=== PATIENT | female | born 1950 | race Hispanic/Latino ===

== ENCOUNTER 2019-03-01 09:59 | Emergency (ER) | payer OTHER ==
[2019-03-01] MEDS ORDERED: ONDANSETRON 4 MG/2 ML VIAL ONE (10:44)
[2019-03-01 10:59] LABS: Absolute Lymphocytes (CBC) 1.6 K/uL (0.7-4.9); Basophils % 2.1 % (0-1.3); Hematocrit 35.9 % (36.0-45.0); Lymphocytes % 22.4 % (15.3-44.8); MPV 8.5 fL (7.6-11.3)
[2019-03-01 11:10] LABS: Bilirubin Total 0.5 mg/dL (0.2-1.0); Protein, Total 7.2 g/dL (6.4-8.2)
[2019-03-01] MEDS ORDERED: NA CHLORIDE 0.9% 500 ML ONE (11:38)
--- NOTE | 2019-03-01 11:40 | RAD REPORT ---
EXAM DESCRIPTION: Charanjit Cordova (2 Views)03/01/2019 11:07 am CLINICAL HISTORY: Cough COMPARISON: 2014 FINDINGS: The lungs appear clear of acute infiltrate. The heart is normal size IMPRESSION: No acute abnormalities displayed
[2019-03-01 12:04] LABS: Urine Blood NEGATIVE (NEG); Urine Glucose NEGATIVE (NEG); Urine Protein NEGATIVE (NEG); Urine Specific Gravity 1.005 (1.005-1.030); Urine pH 5.5 (5.0-7.0)
--- NOTE | 2019-03-01 12:27 | EDPHYS ---
Physician Documentation [facility] Name: Liberty Bah Age: 68 yrs Sex: Female : 1950 Arrival Date: 03/01/2019 Time: 10:02 Bed 8 Private MD: ED Physician Jermaine Charles HPI: 03/01 10:30 This 68 yrs old Female presents to ER via Ambulatory with complaints of Flu jmm Symptoms. 10:30 The patient or guardian reports cough. Onset: The symptoms/episode began/occurred jmm gradually, 3 day(s) ago. Modifying factors: The symptoms are alleviated by nothing. the symptoms are aggravated by nothing. Associated signs and symptoms: Pertinent positives: diarrhea, nausea, rhinorrhea. This is a 68 year old female with a history of DM, NH, HTN that presents to the ED with complaints of congestion, cough, sinus pressure, diarrhea, beginning 3 days ago. Denies abdominal pain or sore throat. . Historical: - Allergies: 10:24 PENICILLINS; iw - Home Meds: 10:24 Lyrica Oral [Active]; Plavix 75 mg Oral tab 1 tab once daily [Active]; Metformin Oral iw [Active]; Lisinopril Oral [Active]; - PMHx: 10:24 Diabetes - NIDDM; Myocardial infarction; Hypertension; iw - PSHx: 10:24 Heart stents; Appendectomy; iw - Immunization history:: Adult Immunizations up to date. - Social history:: Smoking status: Patient uses tobacco products, denies chronic smoking, but will smoke occasionally. - Ebola Screening: : Patient negative for fever greater than or equal to 101.5 degrees Fahrenheit, and additional compatible Ebola Virus Disease symptoms Patient denies exposure to infectious person Patient denies travel to an Ebola-affected area in the 21 days before illness onset No symptoms or risks identified at this time. ROS: 10:30 Constitutional: Positive for body aches. jmm 10:30 Respiratory: Positive for cough. 10:30 Abdomen/GI: Positive for nausea. 10:30 All other systems are negative. Exam: 10:30 Constitutional: This is a well developed, well nourished patient who is awake, alert, jmm and in no acute distress. Head/Face: atraumatic. Eyes: EOMI, no conjunctival erythema appreciated ENT: Moist Mucus Membranes Neck: Trachea midline, Supple Chest/axilla: Normal chest wall appearance and motion. 10:30 Back: Normal ROM Skin: General appearance color normal MS/ Extremity: Moves all extremities, no obvious deformities appreciated, no edema noted to the lower extremities Neuro: Awake and alert, normal gait Psych: Behavior is normal, Mood is normal, Patient is cooperative and pleasant 10:30 Cardiovascular: Rate: normal, Rhythm: regular. 10:30 Respiratory: the patient does not display signs of respiratory distress, Respirations: normal, Breath sounds: are clear throughout. 10:30 Abdomen/GI: Inspection: abdomen appears normal, Bowel sounds: normal, Palpation: abdomen is soft and non-tender, in all quadrants. Vital Signs: 10:28 BP 122 / 74; Pulse 87; Resp 16; Temp 97.6(O); Pulse Ox 100% on R/A; Weight 53.52 kg; iw Height 5 ft. 1 in. (154.94 cm); 11:50 BP 124 / 72; Pulse 80; Resp 17; Pulse Ox 99% on R/A; sg 13:00 BP 124 / 70; Pulse 82; Resp 16; Temp 97.6; Pulse Ox 100% on R/A; sg 10:28 Body Mass Index 22.30 (53.52 kg, 154.94 cm) iw MDM: 10:20 Patient medically screened. [facility] 12:24 Data reviewed: vital signs, nurses notes. Counseling: I had a detailed discussion with alfredo the patient and/or guardian regarding: the historical points, exam findings, and any diagnostic results supporting the discharge/admit diagnosis, lab results, radiology results, the need for outpatient follow up, to return to the emergency department if symptoms worsen or persist or if there are any questions or concerns that arise at home. ED course: Patient is alert and non toxic in appearance in the ED. Patient shows no signs of resp distress. Tolerates PO. Labs unremarkable. Patient requested medication for anxiety/rest. Will prescribe low dose hydroxyzine. UA shows signs of possible UTI. Will treat with 3 day course. Patient given strict return precautions. Patient understood and agrees with the plan of care. . 03/01 10:30 Order name: Flu; Complete Time: 11:15 [facility] 03/01 10:30 Order name: Strep; Complete Time: 11:15 [facility] 03/01 10:30 Order name: CBC with Diff; Complete Time: 11:07 [facility] 03/01 10:30 Order name: CMP; Complete Time: 11:15 [facility] 03/01 11:15 Order name: Throat Culture [facility] 03/01 11:16 Order name: Urine Dipstick--Ancillary (enter results); Complete Time: 12:15 eb 03/01 10:30 Order name: Saline Lock; Complete Time: 10:50 [facility] 03/01 10:30 Order name: Chest Pa And Lat (2 Views) XRAY; Complete Time: 11:43 [facility] 03/01 10:30 Order name: Urine Dipstick-Ancillary (obtain specimen); Complete Time: 11:27 [facility] Administered Medications: 10:40 Drug: Zofran 4 mg Route: IVP; Site: right forearm; sg 11:00 Follow up: Response: No adverse reaction; Nausea unchanged sg 11:42 Drug: NS 0.9% 500 ml Route: IV; Rate: bolus; Site: right forearm; sg Disposition: 03/02 07:16 Co-signature as Attending Physician, Jermaine Charles MD I agree with the assessment and kdr plan of care. Disposition: 03/01/19 12:26 Discharged to Home. Impression: Acute upper respiratory infection, unspecified, Urinary tract infection, site not specified. - Condition is Stable. - Discharge Instructions: Upper Respiratory Infection, Adult, Urinary Tract Infection, Adult. - Prescriptions for Hydroxyzine HCl 25 mg Oral Tablet - take 1 tablet by ORAL route every 6 hours As needed; 12 tablet. Bactrim DS 800- 160 mg Oral Tablet - take 1 tablet by ORAL route every 12 hours for 3 days; 6 tablet. Zofran ODT 4 mg Oral tablet,disintegrating - place 1 tablet by TRANSLINGUAL route every 4-6 hours; 20 tablet. - Medication Reconciliation Form, Thank You Letter, Antibiotic Education, Prescription Opioid Use form. - Follow up: Private Physician; When: 2 - 3 days; Reason: Recheck today's complaints, Continuance of care, Re-evaluation by your physician. Signatures: Dispatcher [employer] EDMS Cristo Severino RN RN sg Rittger, Kevin, MD MD kdr Mickail, Joel, PA PA [facility] Floresita Sanchez RN RN Vianney Brown RN RN Corrections: (The following items were deleted from the chart) 03/01 13:25 12:26 03/01/2019 12:26 Discharged to Home. Impression: Acute upper respiratory hb infection, unspecified; Urinary tract infection, site not specified. Condition is Stable. Forms are Medication Reconciliation Form, Thank You Letter, Antibiotic Education, Prescription Opioid Use. Follow up: Private Physician; When: 2 - 3 days; Reason: Recheck today's complaints, Continuance of care, Re-evaluation by your physician. alfredo
--- NOTE | 2019-03-01 12:27 | ER ---
Nurse's Notes [facility] Name: Liberty Bah Age: 68 yrs Sex: Female : 1950 Arrival Date: 03/01/2019 Time: 10:02 Bed 8 Private MD: Diagnosis: Acute upper respiratory infection, unspecified;Urinary tract infection, site not specified Presentation: 03/01 10:22 Presenting complaint: Patient states: nausea, diarrhea X3-4 days, feels cold, no fever, iw also feels fatigued and has sinus pain. Transition of care: patient was not received from another setting of care. Onset of symptoms was February 26, 2019. Risk Assessment: Do you want to hurt yourself or someone else? Patient reports no desire to harm self or others. Initial Sepsis Screen: Does the patient meet any 2 criteria? No. Patient's initial sepsis screen is negative. Does the patient have a suspected source of infection? No. Patient's initial sepsis screen is negative. Care prior to arrival: None. 10:22 Method Of Arrival: Ambulatory iw 10:22 Acuity: BARBRA 3 iw Historical: - Allergies: 10:24 PENICILLINS; iw - Home Meds: 10:24 Lyrica Oral [Active]; Plavix 75 mg Oral tab 1 tab once daily [Active]; Metformin Oral iw [Active]; Lisinopril Oral [Active]; - PMHx: 10:24 Diabetes - NIDDM; Myocardial infarction; Hypertension; iw - PSHx: 10:24 Heart stents; Appendectomy; iw - Immunization history:: Adult Immunizations up to date. - Social history:: Smoking status: Patient uses tobacco products, denies chronic smoking, but will smoke occasionally. - Ebola Screening: : Patient negative for fever greater than or equal to 101.5 degrees Fahrenheit, and additional compatible Ebola Virus Disease symptoms Patient denies exposure to infectious person Patient denies travel to an Ebola-affected area in the 21 days before illness onset No symptoms or risks identified at this time. Screenin:33 Abuse screen: Denies threats or abuse. Denies injuries from another. Nutritional hb screening: No deficits noted. Tuberculosis screening: No symptoms or risk factors identified. Fall Risk None identified. Assessment: 10:30 General: Appears in no apparent distress. Behavior is calm, cooperative. Pain: Pain hb currently is 2 out of 10 on a pain scale. Neuro: Level of Consciousness is awake, alert, obeys commands, Oriented to person, place, time, situation. Cardiovascular: Capillary refill < 3 seconds Patient's skin is warm and dry. Respiratory: Airway is patent Respiratory effort is even, unlabored, Respiratory pattern is regular, symmetrical, Breath sounds are clear bilaterally. GI: No signs and/or symptoms were reported involving the gastrointestinal system. : No signs and/or symptoms were reported regarding the genitourinary system. EENT: No signs and/or symptoms were reported regarding the EENT system. Derm: Skin is pink, warm \T\ dry. Musculoskeletal: Reports body aches. 10:32 GI: Reports diarrhea, nausea, Shravan SALCEDO notified, orders received for Zofran, pt sg medicated see EMAR. Vital Signs: 10:28 BP 122 / 74; Pulse 87; Resp 16; Temp 97.6(O); Pulse Ox 100% on R/A; Weight 53.52 kg; iw Height 5 ft. 1 in. (154.94 cm); 11:50 BP 124 / 72; Pulse 80; Resp 17; Pulse Ox 99% on R/A; sg 13:00 BP 124 / 70; Pulse 82; Resp 16; Temp 97.6; Pulse Ox 100% on R/A; sg 10:28 Body Mass Index 22.30 (53.52 kg, 154.94 cm) iw ED Course: 10:02 Patient arrived in ED. mr 10:14 Shravan Felton PA is PHCP. jmm 10:14 Jermaine Charles MD is Attending Physician. jmm 10:18 Cristo Severino, JASEN is Primary Nurse. sg 10:23 Triage completed. iw 10:30 Patient has correct armband on for positive identification. Placed in gown. Bed in low hb position. Call light in reach. Side rails up X 1. 10:30 Initial lab(s) drawn, by me, sent to lab. Flu and/or RSV swab sent to lab. Strep swab sg sent to lab. Inserted saline lock: 22 gauge in right forearm, using aseptic technique. Blood collected. 10:33 Arm band placed on. hb 11:08 Chest Pa And Lat (2 Views) XRAY In Process Unspecified. EDMS 13:25 No provider procedures requiring assistance completed. IV discontinued, intact, hb bleeding controlled, No redness/swelling at site. Pressure dressing applied. Administered Medications: 10:40 Drug: Zofran 4 mg Route: IVP; Site: right forearm; sg 11:00 Follow up: Response: No adverse reaction; Nausea unchanged sg 11:42 Drug: NS 0.9% 500 ml Route: IV; Rate: bolus; Site: right forearm; sg Outcome: 12:26 Discharge ordered by . alfredo 13:22 Discharged to home ambulatory, with family. hb 13:22 Condition: stable 13:22 Discharge instructions given to patient, family, Instructed on discharge instructions, follow up and referral plans. medication usage, Demonstrated understanding of instructions, follow-up care, medications, Prescriptions given X 3. 13:25 Patient left the ED. hb Signatures: Dispatcher [employer] EDMS Cristo Severino, RN RN Shravan Echols PA PA jmm Rivera, Mary mr Williams, Irene, RN RN iw Baxter, Heather, RN RN hb
[2019-03-01 13:49] VITALS: BP 122/74; TEMP 97.6; O2SAT 100
== END 2019-03-01 13:25 | disposition home or self-care (01) ==
LOC: ER 09:59
DX: J06.9 Acute upper respiratory infection, unspecified (principal); N39.0 Urinary tract infection, site not specified; Z88.0 Allergy status to penicillin; E11.9 Type 2 diabetes mellitus without complications; I25.2 Old myocardial infarction; I10 Essential (primary) hypertension; Z72.0 Tobacco use
CPT/HCPCS: 87070; 85025; 36415; 87081; 81003; 80053; 87804 ×2; 71046; 96374; 99284; J7040; J2405

== ENCOUNTER → 2023-04-03 | Emergency (ER) | payer OTHER ==
[~2023-04-03] MED LIST: HYDROCODONE/APAP 5/325 MG TAB ONE
--- OUTSIDE RECORDS SUMMARY | 2023-04-03 10:44 | XMS REPORT | Continuity of Care Document ---
Author Name Unknown Address [address] [facility] [address] [place] [address] [facility] thconnect Address [address] [facility] 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 Name Role Phone Kitty Taylor Primary Care Physician ADONIS MATHIS Attending Clinician Unavailable [email or web address] Attending Clinician Analisa Wolff MA Attending Clinician Unavailab matt [email or web address] Admitting Clinician Kenji aggarwal Payers Payer Name Policy Type Policy Number Effective Date Expirati on Date Source [facility] [employer]LLMED [id number] 2021 00:00:00 [facility] MEDICARE ADVANTAGE [id number] 2020 00:00:00 Problems Condition Name Condition Details Condition Category Status Onset Date Resolution Date Last Treatment Date Treating Clinician Comments Source Closed Colles' fracture of right radius with routine healing Closed Colles' fracture of right radius with routine healing Disease Active 2020-03 00:00: 00 [facility] Right wrist pain Right wrist pain Disease Active 2020-03 00:00: 00 [facility] Closed displaced intertroch anteric fracture of right femur with routine healing Closed displaced intertroch anteric fracture of right femur with routine healing Disease Active 2020-03 00:00: 00 [facility] Allergies, Adverse Reactions, Alerts Allergy Name Allergy Type Status Severity Reaction(s) Onset Date Inactive Date Treating Clinician Comments Source Penicill ins Allergy to substanc e Active Rash 09-25 00:00: 00 [facility] Social History Social Habit Start Date Stop Date Quantity Comments Source History of tobacco use 1979-04-04 00:00:00 Cigarette Smoker [facility] Exposure to SARS-CoV-2 (event) Not sure [facility] Tobacco use and exposure 2021-04-08 00:00:00 2021-04-08 00:00:00 User of smokeless tobacco [facility] Alcohol intake 2021-04-08 00:00:00 2021-04-08 00:00:00 0 /d [facility] Cigarettes smoked current (pack per day) - Reported 2021-04-08 00:00:00 2021-04-08 00:00:00 [facility] Cigarette pack-years 2021-04-08 00:00:00 2021-04-08 00:00:00 [facility] Sex Assigned At 1950 00:00:00 1950 00:00:00 [facility] Smoking Status Start Date Stop Date Source Tobacco smoking consumption unknown [facility] Smokes tobacco daily 2021-04-08 00:00:00 [facility] Never smoked tobacco [facility] Medications Ordered Medication Name Filled Medication Name Start Date Stop Date Current Medication? Ordering Clinician Indication Dosage Frequency Signature (SIG) Comments Components Source naloxone (Narcan) 2 MG/2ML injection 2020-03 00:00: 00 03-10 05:59 :00 No [id number] .4mg Administer 0.4 mL (0.4 mg total) into affected nostril(s) if needed for opioid reversal. May repeat every 2-3 minutes as needed until medical assistance available. [facility] naloxone (Narcan) 2 MG/2ML injection 2020-03 00:00: 00 03-10 05:59 :00 No [id number] .4mg Administer 0.4 mL (0.4 mg total) into affected nostril(s) if needed for opioid reversal. May repeat every 2-3 minutes as needed until medical assistance available. [facility] HYDROcodone -acetaminop hen ([place]) 10-325 MG tablet 2020-03 00:00: 00 05-09 05:59 :00 No [id number] 1{tbl} Take 1 tablet by mouth every 4 (four) hours if needed for severe pain (Pain). [facility] HYDROcodone -acetaminop hen ([place]) 10-325 MG tablet 2021-1 2-15 00:00: 00 05-09 05:59 :00 No [id number] 1{tbl} Take 1 tablet by mouth every 4 (four) hours if needed for severe pain (Pain). [facility] HYDROcodone -acetaminop hen ([place]) 10-325 MG tablet 2020-03 00:00: 00 04-23 05:59 :00 No [id number] 1{tbl} Take 1 tablet by mouth every 4 (four) hours if needed for severe pain (Pain). [facility] HYDROcodone -acetaminop hen ([place]) 10-325 MG tablet 2020-03 00:00: 00 04-23 05:59 :00 No [id number] 1{tbl} Take 1 tablet by mouth every 4 (four) hours if needed for severe pain (Pain). [facility] HYDROcodone -acetaminop hen ([place]) 10-325 MG tablet 2020-03 00:00: 00 04-10 05:59 :00 No [id number] 1{tbl} Take 1 tablet by mouth every 4 (four) hours if needed for severe pain (Pain). [facility] HYDROcodone -acetaminop hen ([place]) 10-325 MG tablet 2020-03 00:00: 00 03-08 00:00 :00 No [id number] 1{tbl} Take 1 tablet by mouth every 4 (four) hours if needed for severe pain (Pain). [facility] HYDROcodone -acetaminop hen ([place]) 10-325 MG tablet 2020-03 00:00: 00 03-30 05:59 :00 No [id number] 1{tbl} Take 1 tablet by mouth every 4 (four) hours if needed for severe pain (Pain). [facility] HYDROcodone -acetaminop hen ([place]) 10-325 MG tablet 2020-03 00:00: 00 03-30 05:59 :00 No [id number] 1{tbl} Take 1 tablet by mouth every 4 (four) hours if needed for severe pain (Pain). [facility] HYDROcodone -acetaminop hen ([place]) 10-325 MG tablet 2020-03 00:00: 00 02-07 00:00 :00 No [id number] 1{tbl} Take 1 tablet by mouth every 4 (four) hours if needed for severe pain (Pain). [facility] HYDROcodone -acetaminop hen ([place]) 10-325 MG tablet 2020-03 00:00: 00 03-22 05:59 :00 No [id number] 1{tbl} Take 1 tablet by mouth every 4 (four) hours if needed for severe pain (Pain). [facility] HYDROcodone -acetaminop hen ([place]) 10-325 MG tablet 2020-03 00:00: 00 01-28 00:00 :00 No [id number] 1{tbl} Take 1 tablet by mouth every 4 (four) hours if needed for severe pain (Pain). [facility] No known medications 2020-03 11:24: 46 No No known medication s [facility] No known medications 2020-03 11:24: 46 No No known medication s [facility] pantoprazol e (ProtoNix) 40 MG EC tablet 2020-03 11:03: 30 Yes pantoprazo le 40 mg tablet,del ayed release [facility] pantoprazol e (ProtoNix) 40 MG EC tablet 2020-03 11:03: 30 Yes pantoprazo le 40 mg tablet,del ayed release [facility] pantoprazol e (ProtoNix) 40 MG EC tablet 2020-03 11:03: 30 Yes pantoprazo le 40 mg tablet,del ayed release [facility] pantoprazol e (ProtoNix) 40 MG EC tablet 2020-03 11:03: 30 Yes pantoprazo le 40 mg tablet,del ayed release [facility] pantoprazol e (ProtoNix) 40 MG EC tablet 2020-03 11:03: 30 Yes pantoprazo le 40 mg tablet,del ayed release [facility] pantoprazol e (ProtoNix) 40 MG EC tablet 2020-03 11:03: 30 Yes pantoprazo le 40 mg tablet,del ayed release [facility] pantoprazol e (ProtoNix) 40 MG EC tablet 2020-03 11:03: 30 Yes pantoprazo le 40 mg tablet,del ayed release [facility] pantoprazol e (ProtoNix) 40 MG EC tablet 2020-03 0 11:03: 30 Yes pantoprazo le 40 mg tablet,del ayed release [facility] pantoprazol e (ProtoNix) 40 MG EC tablet 2020-03 0 11:03: 30 Yes pantoprazo le 40 mg tablet,del ayed release [facility] pantoprazol e (ProtoNix) 40 MG EC tablet 2020-03 0 11:03: 30 Yes pantoprazo le 40 mg tablet,del ayed release [facility] pantoprazol e (ProtoNix) 40 MG EC tablet 2020-03 11:03: 30 Yes pantoprazo le 40 mg tablet,del ayed release [facility] fenofibrate micronized (Lofibra) 134 MG capsule 2020-03 11:03: 29 Yes fenofibrat e micronized 134 mg capsule [facility] lisinopril 20 MG tablet 2020-03 0 11:03: 29 Yes lisinopril 20 mg tablet TAKE 1 TABLET BY MOUTH EVERY DAY [facility] metFORMIN (Glucophage ) 500 MG tablet 2020-03 11:03: 29 Yes metformin 500 mg tablet [facility] fenofibrate micronized (Lofibra) 134 MG capsule 2020-03 11:03: 29 Yes fenofibrat e micronized 134 mg capsule [facility] lisinopril 20 MG tablet 2020-03 11:03: 29 Yes lisinopril 20 mg tablet TAKE 1 TABLET BY MOUTH EVERY DAY [facility] metFORMIN (Glucophage ) 500 MG tablet 2020-03 11:03: 29 Yes metformin 500 mg tablet [facility] fenofibrate micronized (Lofibra) 134 MG capsule 2020-03 11:03: 29 Yes fenofibrat e micronized 134 mg capsule [facility] lisinopril 20 MG tablet 2020-03 11:03: 29 Yes lisinopril 20 mg tablet TAKE 1 TABLET BY MOUTH EVERY DAY [facility] metFORMIN (Glucophage ) 500 MG tablet 2020-03 0 11:03: 29 Yes metformin 500 mg tablet [facility] fenofibrate micronized (Lofibra) 134 MG capsule 2020-03 11:03: 29 Yes fenofibrat e micronized 134 mg capsule [facility] lisinopril 20 MG tablet 2020-03 0 11:03: 29 Yes lisinopril 20 mg tablet TAKE 1 TABLET BY MOUTH EVERY DAY [facility] metFORMIN (Glucophage ) 500 MG tablet 2020-03 0 11:03: 29 Yes metformin 500 mg tablet [facility] fenofibrate micronized (Lofibra) 134 MG capsule 2020-03 0 11:03: 29 Yes fenofibrat e micronized 134 mg capsule [facility] lisinopril 20 MG tablet 2020-03 0 11:03: 29 Yes lisinopril 20 mg tablet TAKE 1 TABLET BY MOUTH EVERY DAY [facility] metFORMIN (Glucophage ) 500 MG tablet 2020-03 0 11:03: 29 Yes metformin 500 mg tablet [facility] fenofibrate micronized (Lofibra) 134 MG capsule 2020-03 0 11:03: 29 Yes fenofibrat e micronized 134 mg capsule [facility] lisinopril 20 MG tablet 2020-03 0 11:03: 29 Yes lisinopril 20 mg tablet TAKE 1 TABLET BY MOUTH EVERY DAY [facility] metFORMIN (Glucophage ) 500 MG tablet 2020-03 0 11:03: 29 Yes metformin 500 mg tablet [facility] fenofibrate micronized (Lofibra) 134 MG capsule 2020-03 0 11:03: 29 Yes fenofibrat e micronized 134 mg capsule [facility] lisinopril 20 MG tablet 2020-03 0 11:03: 29 Yes lisinopril 20 mg tablet TAKE 1 TABLET BY MOUTH EVERY DAY [facility] metFORMIN (Glucophage ) 500 MG tablet 2020-03 0 11:03: 29 Yes metformin 500 mg tablet [facility] fenofibrate micronized (Lofibra) 134 MG capsule 2020-03 0 11:03: 29 Yes fenofibrat e micronized 134 mg capsule [facility] lisinopril 20 MG tablet 2020-03 0 11:03: 29 Yes lisinopril 20 mg tablet TAKE 1 TABLET BY MOUTH EVERY DAY [facility] metFORMIN (Glucophage ) 500 MG tablet 2020-03 0 11:03: 29 Yes metformin 500 mg tablet [facility] fenofibrate micronized (Lofibra) 134 MG capsule 2020-03 0 11:03: 29 Yes fenofibrat e micronized 134 mg capsule [facility] lisinopril 20 MG tablet 2020-03 11:03: 29 Yes lisinopril 20 mg tablet TAKE 1 TABLET BY MOUTH EVERY DAY [facility] metFORMIN (Glucophage ) 500 MG tablet 2020-03 0 11:03: 29 Yes metformin 500 mg tablet [facility] fenofibrate micronized (Lofibra) 134 MG capsule 2020-03 11:03: 29 Yes fenofibrat e micronized 134 mg capsule [facility] lisinopril 20 MG tablet 2020-03 11:03: 29 Yes lisinopril 20 mg tablet TAKE 1 TABLET BY MOUTH EVERY DAY [facility] metFORMIN (Glucophage ) 500 MG tablet 2020-03 11:03: 29 Yes metformin 500 mg tablet [facility] fenofibrate micronized (Lofibra) 134 MG capsule 2020-03 11:03: 29 Yes fenofibrat e micronized 134 mg capsule [facility] lisinopril 20 MG tablet 2020-03 11:03: 29 Yes lisinopril 20 mg tablet TAKE 1 TABLET BY MOUTH EVERY DAY [facility] metFORMIN (Glucophage ) 500 MG tablet 2020-03 11:03: 29 Yes metformin 500 mg tablet [facility] atorvastati n (Lipitor) 20 MG tablet 2020-03 11:03: 28 Yes atorvastat in 20 mg tablet [facility] calcium carbonate (Os-Kosta) 1250 (500 Ca) MG tablet 2020-03 11:03: 28 Yes calcium carbonate 500 mg calcium (1,250 mg) tablet TAKE 1 TABLET BY MOUTH TWICE A DAY FOR 21 DAYS [facility] clopidogrel (Plavix) 75 MG tablet 2020-03 11:03: 28 Yes clopidogre l 75 mg tablet [facility] atorvastati n (Lipitor) 20 MG tablet 2020-03 11:03: 28 Yes atorvastat in 20 mg tablet [facility] calcium carbonate (Os-Kosta) 1250 (500 Ca) MG tablet 2020-03 11:03: 28 Yes calcium carbonate 500 mg calcium (1,250 mg) tablet TAKE 1 TABLET BY MOUTH TWICE A DAY FOR 21 DAYS [facility] clopidogrel (Plavix) 75 MG tablet 2020-03 11:03: 28 Yes clopidogre l 75 mg tablet [facility] atorvastati n (Lipitor) 20 MG tablet 2020-03 11:03: 28 Yes atorvastat in 20 mg tablet [facility] calcium carbonate (Os-Kosta) 1250 (500 Ca) MG tablet 2020-03 11:03: 28 Yes calcium carbonate 500 mg calcium (1,250 mg) tablet TAKE 1 TABLET BY MOUTH TWICE A DAY FOR 21 DAYS [facility] clopidogrel (Plavix) 75 MG tablet 2020-03 11:03: 28 Yes clopidogre l 75 mg tablet [facility] atorvastati n (Lipitor) 20 MG tablet 2020-03 11:03: 28 Yes atorvastat in 20 mg tablet [facility] calcium carbonate (Os-Kosta) 1250 (500 Ca) MG tablet 2020-03 11:03: 28 Yes calcium carbonate 500 mg calcium (1,250 mg) tablet TAKE 1 TABLET BY MOUTH TWICE A DAY FOR 21 DAYS [facility] clopidogrel (Plavix) 75 MG tablet 2020-03 11:03: 28 Yes clopidogre l 75 mg tablet [facility] atorvastati n (Lipitor) 20 MG tablet 2020-03 11:03: 28 Yes atorvastat in 20 mg tablet [facility] calcium carbonate (Os-Kosta) 1250 (500 Ca) MG tablet 2020-03 11:03: 28 Yes calcium carbonate 500 mg calcium (1,250 mg) tablet TAKE 1 TABLET BY MOUTH TWICE A DAY FOR 21 DAYS [facility] clopidogrel (Plavix) 75 MG tablet 2020-03 11:03: 28 Yes clopidogre l 75 mg tablet [facility] atorvastati n (Lipitor) 20 MG tablet 2020-03 11:03: 28 Yes atorvastat in 20 mg tablet [facility] calcium carbonate (Os-Kosta) 1250 (500 Ca) MG tablet 2020-03 11:03: 28 Yes calcium carbonate 500 mg calcium (1,250 mg) tablet TAKE 1 TABLET BY MOUTH TWICE A DAY FOR 21 DAYS [facility] clopidogrel (Plavix) 75 MG tablet 2020-03 11:03: 28 Yes clopidogre l 75 mg tablet [facility] atorvastati n (Lipitor) 20 MG tablet 2020-03 11:03: 28 Yes atorvastat in 20 mg tablet [facility] calcium carbonate (Os-Kosta) 1250 (500 Ca) MG tablet 2020-03 11:03: 28 Yes calcium carbonate 500 mg calcium (1,250 mg) tablet TAKE 1 TABLET BY MOUTH TWICE A DAY FOR 21 DAYS [facility] clopidogrel (Plavix) 75 MG tablet 2020-03 11:03: 28 Yes clopidogre l 75 mg tablet [facility] atorvastati n (Lipitor) 20 MG tablet 2020-03 11:03: 28 Yes atorvastat in 20 mg tablet [facility] calcium carbonate (Os-Kosta) 1250 (500 Ca) MG tablet 2020-03 11:03: 28 Yes calcium carbonate 500 mg calcium (1,250 mg) tablet TAKE 1 TABLET BY MOUTH TWICE A DAY FOR 21 DAYS [facility] clopidogrel (Plavix) 75 MG tablet 2020-03 11:03: 28 Yes clopidogre l 75 mg tablet [facility] atorvastati n (Lipitor) 20 MG tablet 2020-03 11:03: 28 Yes atorvastat in 20 mg tablet [facility] calcium carbonate (Os-Kosta) 1250 (500 Ca) MG tablet 2020-03 11:03: 28 Yes calcium carbonate 500 mg calcium (1,250 mg) tablet TAKE 1 TABLET BY MOUTH TWICE A DAY FOR 21 DAYS [facility] clopidogrel (Plavix) 75 MG tablet 2020-03 11:03: 28 Yes clopidogre l 75 mg tablet [facility] atorvastati n (Lipitor) 20 MG tablet 2020-03 11:03: 28 Yes atorvastat in 20 mg tablet [facility] calcium carbonate (Os-Kosta) 1250 (500 Ca) MG tablet 2020-03 11:03: 28 Yes calcium carbonate 500 mg calcium (1,250 mg) tablet TAKE 1 TABLET BY MOUTH TWICE A DAY FOR 21 DAYS [facility] clopidogrel (Plavix) 75 MG tablet 2020-03 11:03: 28 Yes clopidogre l 75 mg tablet [facility] atorvastati n (Lipitor) 20 MG tablet 2020-03 11:03: 28 Yes atorvastat in 20 mg tablet [facility] calcium carbonate (Os-Kosta) 1250 (500 Ca) MG tablet 2020-03 11:03: 28 Yes calcium carbonate 500 mg calcium (1,250 mg) tablet TAKE 1 TABLET BY MOUTH TWICE A DAY FOR 21 DAYS [facility] clopidogrel (Plavix) 75 MG tablet 2020-03 11:03: 28 Yes clopidogre l 75 mg tablet [facility] HYDROcodone -acetaminop hen ([place]) 10-325 MG tablet 2020-03 0 00:00: 00 02-23 05:59 :00 No [id number] 1{tbl} Take 1 tablet by mouth every 4 (four) hours if needed for severe pain (Pain). [facility] HYDROcodone -acetaminop hen ([place]) 10-325 MG tablet 2020-03 00:00: 00 02-23 05:59 :00 No [id number] 1{tbl} Take 1 tablet by mouth every 4 (four) hours if needed for severe pain (Pain). [facility] HYDROcodone -acetaminop hen ([place]) 10-325 MG tablet 2020-03 00:00: 00 02-23 05:59 :00 No [id number] 1{tbl} Take 1 tablet by mouth every 4 (four) hours if needed for severe pain (Pain). [facility] HYDROcodone -acetaminop hen ([place]) 10-325 MG tablet 2020-03 00:00: 00 01-20 00:00 :00 No [id number] 1{tbl} Take 1 tablet by mouth every 4 (four) hours if needed for severe pain (Pain). [facility] HYDROcodone -acetaminop hen ([place]) 10-325 MG tablet 12-12 00:00: 00 Yes TAKE 1 TABLET BY MOUTH EVERY 6 HOURS NEEDED FOR PAIN FOR 6 DAYS [facility] Oyster Shell Calcium 500 MG tablet 12-12 00:00: 00 Yes TAKE 1 TABLET BY MOUTH TWICE A DAY FOR 21 DAYS [facility] HYDROcodone -acetaminop hen ([place]) 10-325 MG tablet 12-12 00:00: 00 Yes TAKE 1 TABLET BY MOUTH EVERY 6 HOURS NEEDED FOR PAIN FOR 6 DAYS [facility] Oyster Shell Calcium 500 MG tablet 12-12 00:00: 00 Yes TAKE 1 TABLET BY MOUTH TWICE A DAY FOR 21 DAYS [facility] HYDROcodone -acetaminop hen ([place]) 10-325 MG tablet 2020-0 12-12 00:00: 00 Yes TAKE 1 TABLET BY MOUTH EVERY 6 HOURS NEEDED FOR PAIN FOR 6 DAYS [facility] Oyster Shell Calcium 500 MG tablet 2020-0 12-12 00:00: 00 Yes TAKE 1 TABLET BY MOUTH TWICE A DAY FOR 21 DAYS [facility] HYDROcodone -acetaminop hen ([place]) 10-325 MG tablet 2020-0 12-12 00:00: 00 Yes TAKE 1 TABLET BY MOUTH EVERY 6 HOURS NEEDED FOR PAIN FOR 6 DAYS [facility] Oyster Shell Calcium 500 MG tablet 2020-0 12-12 00:00: 00 Yes TAKE 1 TABLET BY MOUTH TWICE A DAY FOR 21 DAYS [facility] HYDROcodone -acetaminop hen ([place]) 10-325 MG tablet 2020-0 12-12 00:00: 00 Yes TAKE 1 TABLET BY MOUTH EVERY 6 HOURS NEEDED FOR PAIN FOR 6 DAYS [facility] Oyster Shell Calcium 500 MG tablet 2020-0 12-12 00:00: 00 Yes TAKE 1 TABLET BY MOUTH TWICE A DAY FOR 21 DAYS [facility] HYDROcodone -acetaminop hen ([place]) 10-325 MG tablet 2020-0 12-12 00:00: 00 Yes TAKE 1 TABLET BY MOUTH EVERY 6 HOURS NEEDED FOR PAIN FOR 6 DAYS [facility] Oyster Shell Calcium 500 MG tablet 2020-0 12-12 00:00: 00 Yes TAKE 1 TABLET BY MOUTH TWICE A DAY FOR 21 DAYS [facility] HYDROcodone -acetaminop hen ([place]) 10-325 MG tablet 2020-0 12-12 00:00: 00 Yes TAKE 1 TABLET BY MOUTH EVERY 6 HOURS NEEDED FOR PAIN FOR 6 DAYS [facility] Oyster Shell Calcium 500 MG tablet 2020-0 12-12 00:00: 00 Yes TAKE 1 TABLET BY MOUTH TWICE A DAY FOR 21 DAYS [facility] HYDROcodone -acetaminop hen ([place]) 10-325 MG tablet 2020-0 12-12 00:00: 00 Yes TAKE 1 TABLET BY MOUTH EVERY 6 HOURS NEEDED FOR PAIN FOR 6 DAYS [facility] Oyster Shell Calcium 500 MG tablet 1-0 12-12 00:00: 00 Yes TAKE 1 TABLET BY MOUTH TWICE A DAY FOR 21 DAYS [facility] HYDROcodone -acetaminop hen ([place]) 10-325 MG tablet 2020-0 12-12 00:00: 00 Yes TAKE 1 TABLET BY MOUTH EVERY 6 HOURS NEEDED FOR PAIN FOR 6 DAYS [facility] Oyster Shell Calcium 500 MG tablet 12-12 00:00: 00 Yes TAKE 1 TABLET BY MOUTH TWICE A DAY FOR 21 DAYS [facility] HYDROcodone -acetaminop hen ([place]) 10-325 MG tablet 12-12 00:00: 00 Yes TAKE 1 TABLET BY MOUTH EVERY 6 HOURS NEEDED FOR PAIN FOR 6 DAYS [facility] Oyster Shell Calcium 500 MG tablet 12-12 00:00: 00 Yes TAKE 1 TABLET BY MOUTH TWICE A DAY FOR 21 DAYS [facility] HYDROcodone -acetaminop hen ([place]) 10-325 MG tablet 12-12 00:00: 00 Yes TAKE 1 TABLET BY MOUTH EVERY 6 HOURS NEEDED FOR PAIN FOR 6 DAYS [facility] Oyster Shell Calcium 500 MG tablet 12-12 00:00: 00 Yes TAKE 1 TABLET BY MOUTH TWICE A DAY FOR 21 DAYS [facility] Vital Signs Vital Name Observation Time Observation Value Comments S ource Body height 2021-04-08 16:45:00 161.3 cm [facility] Body weight 2021-04-08 16:45:00 49.896 kg [facility] BMI 2021-04-08 16:45:00 19.18 kg/m2 [facility] Body height 2021-02-04 16:12:00 161.3 cm [facility] Body weight 2021-02-04 16:12:00 49.896 kg [facility] BMI 2021-02-04 16:12:00 19.18 kg/m2 [facility] Body height 2021-01-14 15:48:00 161.3 cm [facility] Body weight 2021-01-14 15:48:00 49.896 kg [facility] BMI 2021-01-14 15:48:00 19.18 kg/m2 [facility] Body height 2020-12-24 15:57:00 161.3 cm [facility] Body weight 2020-12-24 15:57:00 49.896 kg [facility] BMI 2020-12-24 15:57:00 19.18 kg/m2 [facility] Procedures Procedure Date / Time Performed Performing Clinicia n Source CAST APPLICATION 2021-02-04 17:23:09 Adonis Mathis [facility] XR WRIST 3+ VIEWS RIGHT 2021-02-04 16:35:40 Eric Mathis [facility] CAST APPLICATION 2021-01-14 16:23:20 Adonis Mathis [facility] XR WRIST 3+ VIEWS RIGHT 2021-01-14 16:12:00 Eric Mathis [facility] XR FEMUR 2+ VW RIGHT 2021-01-14 16:09:00 Adonis Mathis [facility] XR WRIST 3+ VIEWS RIGHT 2020-12-24 06:17:00 Eric Mathis [facility] Encounters Start Date/Time End Date/Time Encounter Type Admission Type Attending Clinicians Care Facility Care Department Encounter ID Source 2021-04-08 10:51:43 Outpatient [facility] [id number] [facility] 2021-04-08 10:51:43 Outpatient [facility] [id number] [facility] 2021-02-25 10:40:57 Outpatient [facility] [id number] [facility] 2021-02-25 10:40:57 Outpatient [facility] [id number] [facility] 2021-02-04 10:48:38 Outpatient DEL ADONIS [facility] [id number] [facility] 2021-02-04 10:20:46 Outpatient [facility] [id number] [facility] 2021-01-14 10:51:42 Outpatient [facility] [id number] [facility] 2021-01-14 10:51:42 Outpatient [facility] [id number] [facility] 2020-12-24 11:10:15 Outpatient [facility] [id number] [facility] 2023-01-23 00:00:00 2023-01-23 00:00:00 Outpatient [email or web address] diyala_S PRIV PRIV [id number] [facility] 2023-01-22 00:00:00 2023-01-22 00:00:00 Outpatient [email or web address] diyala_S PRIV PRIV [id number] [facility] 2021-04-08 10:45:00 2021-04-08 11:55:25 Office Visit Adonis Mathis [facility] 1 [id number] [facility] 2021-03-08 00:00:00 2021-03-08 00:00:00 Refill Daniels, Analisa Daniels, Analisa [facility] 1 [id number] [facility] 2021-02-07 00:00:00 2021-02-07 00:00:00 Refill Daniels, Analisa Daniels, Analisa UTP [facility] 1 [id number] [facility] 2021-02-04 10:01:07 2021-02-04 10:52:45 Office Visit Adonis Mathis [facility] 1 [id number] [facility] 2021-01-28 00:00:00 2021-01-28 00:00:00 Refill Daniels, Analisa Daniels, Analisa UTP [facility] 1 [id number] [facility] 2021-01-17 00:00:00 2021-01-17 00:00:00 Refill Daniels, Analisa Daniels, Analisa UTP [facility] 1 [id number] [id number] [facility] 2021-01-14 10:35:43 2021-01-14 11:21:36 Office Visit Adonis Mathis [facility] 1 [id number] [facility] 2020-12-24 10:48:14 2020-12-24 11:03:14 Office Visit Adonis Mathis [facility] 1 [id number] [facility] 2020-12-24 00:00:00 2020-12-24 00:00:00 Refill Adonis Mathis [facility] 1 [id number] [id number] [facility] 2020-12-13 00:00:00 2020-12-13 00:00:00 Telephone Daniels, Analisa Boyeres, Analisa [facility] 1 [id number] [id number] [facility] 2020-12-10 16:59:52 2020-12-10 17:59:52 EXT [facility] OP ADONIS MATHIS EXT [facility] LOCATION [id number] [facility] 2020-12-10 16:59:52 2020-12-10 17:59:52 EXT [facility] OP Adonis Mathis EXT [facility] LOCATION [id number] [facility]
--- NOTE | 2023-04-03 11:57 | RAD REPORT ---
EXAM DESCRIPTION: CT - Head Brain Wo Cont - 04/03/2023 11:48 am CLINICAL HISTORY: Fall with headache COMPARISON: 2013 TECHNIQUE: Computed axial tomography of the head was obtained. IV contrast was not requested. All CT scans are performed using dose optimization technique as appropriate and may include automated exposure control or mA/KV adjustment according to patient size. FINDINGS: An intracranial bleed is not seen The ventricles are normal in caliber No extra-axial fluid collection is noted. Mild low-density areas within periventricular, deep and subcortical white matter likely represent is chemic changes secondary to small vessel disease. Fluid within the sinuses/ mastoids is not seen. IMPRESSION: No acute intracranial abnormality is seen If patient's symptoms persist MRI of the brain would be recommended
--- NOTE | 2023-04-03 12:11 | RAD REPORT ---
EXAM DESCRIPTION: Charanjit Single View04/03/2023 12:06 pm CLINICAL HISTORY: Chest pain COMPARISON: 2019 FINDINGS: Lungs are moderately hyperaerated. The lungs appear clear of acute infiltrate. The heart is normal size IMPRESSION: No acute abnormalities displayed
--- NOTE | 2023-04-03 12:12 | RAD REPORT ---
EXAM DESCRIPTION: RAD - Ribs Left - 04/03/2023 12:06 pm CLINICAL HISTORY: Left rib pain FINDINGS: Limited two view series No fracture visualized
--- NOTE | 2023-04-03 12:13 | RAD REPORT ---
EXAM DESCRIPTION: RAD - Pelvis - 04/03/2023 12:06 pm CLINICAL HISTORY: Pelvic pain status post injury FINDINGS: Compression screw and intramedullary mehreen affix an old right femoral fracture. Old right pubic bone fractures. Osteoporosis. No acute fracture or dislocation visualized. If patient continues to have symptoms to suggest an occu lt fracture MRI would be recommended
--- NOTE | 2023-04-03 12:14 | RAD REPORT ---
EXAM DESCRIPTION: RAD - Hand Left 2 View - 04/03/2023 12:06 pm CLINICAL HISTORY: Left hand pain status post injury FINDINGS: No fracture or dislocation is seen. A limited two-view series was obtained
--- NOTE | 2023-04-03 12:18 | EDPHYS ---
Physician Documentation [facility] Name: Liberty Bah Age: 72 yrs Sex: Female : 1950 Arrival Date: 04/03/2023 Time: 10:40 Bed 13 Private MD: ED Physician Josefina Brennan HPI: 04/03 10:53 This 72 yrs old Female presents to ER via EMS with complaints of Fall Injury. gb1 12:10 Patient is a very pleasant 72-year-old female that took a fall as she was gb1 entering her son's house. She fell and the wind blew her over for her other daughter. She has pain on the left ribs as well as an abrasion on her right palm. She did not lose consciousness and remembers the entire event. Has a history of rww-qdzovpu-amaivrwsf diabetes mellitus, hypertension and remote [place]. Patient denies any chest pain or shortness of breath at this time other than previously stated with left-sided rib pain. She states that she has more pain when she takes a deep breath.. Historical: - Allergies: 10:44 PENICILLINS; bp - Home Meds: 10:44 Plavix 75 mg Oral tab 1 tab once daily [Active]; bp - PMHx: 10:44 Diabetes - NIDDM; Hypertension; Myocardial infarction; bp - Immunization history:: Adult Immunizations up to date. - Social history:: Smoking status: Patient denies any tobacco usage or history of. ROS: 12:10 Abdomen/GI: Positive for Negative for abdominal pain, nausea and vomiting, gb1 12:10 MS/extremity: Positive for pain, tenderness, Pain and tenderness of the left lateral mid chest rib., 12:10 Skin: Positive for abrasion(s), Patient has a palmar abrasion with a superficial laceration on the right, Exam: 12:10 Constitutional: This is a well developed, well nourished patient who is awake, alert, gb1 and in no acute distress. Head/Face: Normocephalic, atraumatic. Eyes: Pupils equal round and reactive to light, extra-ocular motions intact. Lids and lashes normal. Conjunctiva and sclera are non-icteric and not injected. Cornea within normal limits. Periorbital areas with no swelling, redness, or edema. ENT: Nares patent. No nasal discharge, no septal abnormalities noted. Tympanic membranes are normal and external auditory canals are clear. Oropharynx with no redness, swelling, or masses, exudates, or evidence of obstruction, uvula midline. Mucous membranes moist. Neck: Trachea midline, no thyromegaly or masses palpated, and no cervical lymphadenopathy. Supple, full range of motion without nuchal rigidity, or vertebral point tenderness. No Meningismus. Cardiovascular: Regular rate and rhythm with a normal S1 and S2. No gallops, murmurs, or rubs. Normal PMI, no JVD. No pulse deficits. Respiratory: Lungs have equal breath sounds bilaterally, clear to auscultation and percussion. No rales, rhonchi or wheezes noted. No increased work of breathing, no retractions or nasal flaring. Abdomen/GI: Soft, non-tender, with normal bowel sounds. No distension or tympany. No guarding or rebound. No evidence of tenderness throughout. Back: No spinal tenderness. No costovertebral tenderness. Full range of motion. 12:10 Chest/axilla: Palpation: tenderness, that is moderate, of the left lateral posterior chest and left lateral anterior chest, 12:10 Cardiovascular: Vital Signs: 10:42 BP 140 / 82; Pulse 78; Resp 18; Temp 97.8; Pulse Ox 97% ; bp 12:40 BP 137 / 79; Pulse 75; Resp 16; Pulse Ox 97% ; bp MDM: 10:47 Patient medically screened. gb1 12:18 Data reviewed: radiologic studies, plain films, I reviewed the patient's AP pelvis, gb1 chest x-ray, left rib series and left hand x-rays which were all negative for acute findings. There is no migration or dislocation of the patient's right hip hardware. At this time is able to bear weight without any issues unassisted I doubt hip fracture or dislocation.. 04/03 11:24 Order name: Ribs Left XRAY; Complete Time: 12:15 gb1 04/03 11:24 Order name: Chest Single View XRAY; Complete Time: 12:15 gb04/03 11:24 Order name: Hand Left 2 View XRAY; Complete Time: 12:15 gb1 04/03 11:24 Order name: Pelvis XRAY; Complete Time: 12:15 gb1 04/03 11:24 Order name: Head Brain Wo Cont CT; Complete Time: 11:58 gb1 04/03 11:25 Order name: Wound Care: PLEASE CLEAN WOUND RIGHT PALM OF HAND AND PUT BACITRACIN ON gb1 WITH DRESSING; Complete Time: 11:40 Administered Medications: 12:21 Drug: HYDROcodone-acetaminophen PO 5 mg-325 mg 1 tabs PO once Route: PO; bp 12:22 Follow up: Response: No adverse reaction bp 12:21 Drug: Bacitracin Topical Ointment (500 unit/g) 1 application Topical once Route: bp Topical; Site: affected area; Disposition: 12:18 Co-signature as Attending Physician, Josefina Brennan MD. gb1 12:19 Chart complete. gb1 Disposition Summary: 04/03/23 12:18 Discharge Ordered Notes: Location: Home gb1 Problem: new gb1 Symptoms: have improved gb1 Condition: Stable gb1 Diagnosis - Fall (on)(from) sidewalk curb gb1 - Contusion of right hand gb1 - Sprain of ribs, initial encounter gb1 Followup: gb1 - With: Private Physician - When: 48 Hours - Reason: Re-evaluation by your physician Discharge Instructions: - Discharge Summary Sheet gb1 - Rib Contusion gb1 - Abrasion, Dvfk-wi-Muvk gb1 Forms: - Medication Reconciliation Form gb1 - Thank You Letter gb1 - Antibiotic Education gb1 - Prescription Opioid Use gb1 - Patient Portal Instructions gb1 - Leadership Thank You Letter gb1 Signatures: Dispatcher [employer] Franklin Paz, RN RN Josefina Johnson MD MD gb1
--- NOTE | 2023-04-03 12:18 | ER ---
Nurse's Notes [facility] Name: Liberty Bah Age: 72 yrs Sex: Female : 1950 Arrival Date: 04/03/2023 Time: 10:40 Bed 13 Private MD: Diagnosis: Fall (on)(from) sidewalk curb;Contusion of right hand;Sprain of ribs, initial encounter Presentation: 04/03 10:42 Chief complaint: EMS states: MECHANICAL FALL ENTERING DAUGHTER'S HOME. Coronavirus bp screen: At this time, the client does not indicate any symptoms associated with coronavirus-19. Ebola Screen: No symptoms or risks identified at this time. Initial Sepsis Screen: Does the patient meet any 2 criteria? No. Patient's initial sepsis screen is negative. Does the patient have a suspected source of infection? No. Patient's initial sepsis screen is negative. Risk Assessment: Do you want to hurt yourself or someone else? Patient reports no desire to harm self or others. Onset of symptoms was April 03, 2023 at 10:00. 10:42 Method Of Arrival: EMS: [facility] bp 10:42 Acuity: BARBRA 3 bp Triage Assessment: 10:44 General: Appears in no apparent distress. uncomfortable, Behavior is calm, cooperative, bp appropriate for age. Pain: Complains of pain in LEFT RIBS, LEFT THUMB, R WRIST. Historical: - Allergies: 10:44 PENICILLINS; bp - Home Meds: 10:44 Plavix 75 mg Oral tab 1 tab once daily [Active]; bp - PMHx: 10:44 Diabetes - NIDDM; Hypertension; Myocardial infarction; bp - Immunization history:: Adult Immunizations up to date. - Social history:: Smoking status: Patient denies any tobacco usage or history of. Screenin:39 [facility] ED Fall Risk Assessment (Adult) History of falling in the last 3 months, bp including since admission Yes- single mechanical fall (1 pt). Abuse screen: Denies threats or abuse. Denies injuries from another. Nutritional screening: No deficits noted. Tuberculosis screening: No symptoms or risk factors identified. Vital Signs: 10:42 BP 140 / 82; Pulse 78; Resp 18; Temp 97.8; Pulse Ox 97% ; bp 12:40 BP 137 / 79; Pulse 75; Resp 16; Pulse Ox 97% ; bp ED Course: 10:42 Patient arrived in ED. bp 10:44 Triage completed. bp 10:44 Arm band placed on. bp 10:46 Josefina Brennan MD is Attending Physician. gb1 11:40 Franklin Rich, RN is Primary Nurse. bp 11:50 Head Brain Wo Cont CT In Process Unspecified. EDMS 12:08 Ribs Left XRAY In Process Unspecified. EDMS 12:08 Chest Single View XRAY In Process Unspecified. EDMS 12:08 Hand Left 2 View XRAY In Process Unspecified. EDMS 12:08 Pelvis XRAY In Process Unspecified. EDMS 12:22 Wound care: to abrasion, located on heel of right hand was cleaned with Betadine, bp dressed with 4X4s. 12:39 Patient has correct armband on for positive identification. bp 12:39 No provider procedures requiring assistance completed. Patient did not have IV access bp during this emergency room visit. Administered Medications: 12:21 Drug: HYDROcodone-acetaminophen PO 5 mg-325 mg 1 tabs PO once Route: PO; bp 12:22 Follow up: Response: No adverse reaction bp 12:21 Drug: Bacitracin Topical Ointment (500 unit/g) 1 application Topical once Route: bp Topical; Site: affected area; Outcome: 12:18 Discharge ordered by . gb1 12:39 Discharged to home ambulatory, with family, bp 12:39 Condition: stable 12:39 Discharge instructions given to patient, family, Instructed on discharge instructions, follow up and referral plans. Demonstrated understanding of instructions, follow-up care, 12:40 Patient left the ED. bp Signatures: Dispatcher [employer] Franklin Paz, RN RN bp Josefina Brennan MD MD gb1
[2023-04-03 12:52] VITALS: BP 137/79; TEMP 97.8; O2SAT 97
== END ==
LOC: ER 10:40
DX: S23.41XA Sprain of ribs, initial encounter (principal); S60.221A Contusion of right hand, initial encounter; W10.1XXA Fall (on)(from) sidewalk curb, initial encounter; E11.9 Type 2 diabetes mellitus without complications; I10 Essential (primary) hypertension; I25.2 Old myocardial infarction; Z79.01 Long term (current) use of anticoagulants; Z88.0 Allergy status to penicillin
CPT/HCPCS: 70450; 71045; 72170; 99284

== ENCOUNTER → 2024-04-30 | Emergency (ER) | payer OTHER ==
[~2024-04-30] MED LIST changes: +DIPHENHYDRAMINE 50 MG/ML VIAL ONE; -HYDROCODONE/APAP 5/325 MG TAB ONE; +METOCLOPRAMIDE 10 MG/2mL INJ ONE; +NA CHLORIDE 0.9% 1,000 ML ONE
--- OUTSIDE RECORDS SUMMARY | 2024-04-30 07:58 | XMS REPORT | Continuity of Care Document ---
Author Name Unknown Address [address] [facility] [address] th[address] Address [address] 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
[2024-04-30 08:41] LABS: Absolute Eosinophils 0.2 K/uL (0-0.5); Absolute Lymphocytes (CBC) 1.8 K/uL (0.7-4.9); Absolute Monocytes 0.4 K/uL (0.1-1.3); Absolute Neutrophil 5.2 K/uL (1.8-8.0); Basophils % 0.3 % (0-1.3); Eosinophils % 2.2 % (0-4.4); Hematocrit 39.3 % (36.0-45.0); Hemoglobin 13.6 g/dL (12.0-15.0); Lymphocytes % 23.8 % (15.3-44.8); MCH 28.7 pg (27.0-35.0); MCHC 34.7 g/dL (32.0-36.0); MCV 82.6 fL (80-100); MPV 8.1 fL (7.6-11.3); Monocytes % 5.4 % (3.3-12.3); Neutrophils % 68.3 % (41.7-73.7); Nucleated Red Blood Cells % 0.1 % (0-0); Platelets 196 thou/uL (152-406); RBC Red Blood Cell Count 4.76 M/uL (3.86-4.86); Red Cell Distribution Width 12.9 % (12.1-15.2)
[2024-04-30 08:55] LABS: Anion Gap 6.8 mEq/L (5.0-15.0); Potassium 3.8 mEq/L (3.5-5.1); Troponin High Sensitivity 13.4 pg/mL (<58.9)
--- NOTE | 2024-04-30 08:55 | RAD REPORT ---
EXAMINATION: ONE VIEW CHEST XR CLINICAL INDICATION: COUGH TECHNIQUE: Frontal chest projection is submitted. Examination is limited by patient positioning and t echnique. COMPARISON: 04/03/2023 FINDINGS: The lungs are diffusely emphysematous but grossly clear. The heart is normal in size. No displaced fr actures identified. Wiring in the left shoulder region noted. IMPRESSION: COPD without an acute process suspected.
[2024-04-30 08:56] LABS: Specific Gravity 1.009 (1.005-1.030); Sqamous Epithelial None Seen /HPF (None Seen); Urine Bacteria None Seen /HPF (<20); Urine Bilirubin NEGATIVE (Negative); Urine Blood Negative (Negative); Urine Clarity Clear (Clear); Urine Color Colorless (Yellow); Urine Crystals Unidentified Few /HPF (None Seen); Urine Culture Reflex Order NOT NEEDED; Urine Glucose NEGATIVE (Negative); Urine Ketones NEGATIVE (Negative); Urine Micro Reflex YN NO BILL MICROSCOPIC; Urine Mucus Slight /HPF (None Seen); Urine Nitrite NEGATIVE (Negative); Urine Protein NEGATIVE (Negative); Urine RBC <5 /HPF (None Seen); Urine Urobilinogen Normal (Normal); Urine WBC <5 /HPF (<5); Urine Yeast (Budding) Trace /HPF (None Seen)
--- NOTE | 2024-04-30 09:28 | ER ---
Nurse's Notes [facility] Name: Liberty Bah Age: 73 yrs Sex: Female : 1950 Arrival Date: 04/30/2024 Time: 07:56 Bed 6 Private MD: Diagnosis: Nausea with vomiting, unspecified;Diarrhea, unspecified Presentation: 04/30 08:00 Chief complaint: EMS states: toned out to patient home for Nausea, Diarrhea, lower ld1 abdominal pain. Coronavirus screen: At this time, the client does not indicate any symptoms associated with coronavirus-19. Ebola Screen: No symptoms or risks identified at this time. Initial Sepsis Screen: Does the patient meet any 2 criteria? No. Patient's initial sepsis screen is negative. Does the patient have a suspected source of infection? No. Patient's initial sepsis screen is negative. Risk Assessment: Do you want to hurt yourself or someone else? Patient reports no desire to harm self or others. Onset of symptoms was April 30, 2024. 08:00 Method Of Arrival: EMS: [facility] ld1 08:00 Acuity: BARBRA 3 ld1 Triage Assessment: 08:08 General: Appears in no apparent distress. comfortable, Behavior is calm, cooperative, ld1 appropriate for age. Pain: Complains of pain in right lower quadrant and left lower quadrant Pain does not radiate. Pain currently is 7 out of 10 on a pain scale. Quality of pain is described as throbbing, Pain began suddenly, Is continuous. EENT: No signs and/or symptoms were reported regarding the EENT system. Neuro: Level of Consciousness is awake, alert, obeys commands, Oriented to person, place, time, situation. Cardiovascular: Capillary refill < 3 seconds Patient's skin is warm and dry. Respiratory: Airway is patent Respiratory effort is even, unlabored. GI: Abdomen is round non-distended, Reports lower abdominal pain, nausea. : No signs and/or symptoms were reported regarding the genitourinary system. Derm: No signs and/or symptoms reported regarding the dermatologic system. Musculoskeletal: No signs and/or symptoms reported regarding the musculoskeletal system. Historical: - Allergies: 08:08 PENICILLINS; ld1 - Home Meds: 08:08 Plavix 75 mg Oral tab 1 tab once daily [Active]; ld1 - PMHx: 08:08 Diabetes - NIDDM; Hypertension; Myocardial infarction; ld1 - Immunization history:: Adult Immunizations up to date. - Infectious Disease History:: Denies. - Social history:: Smoking status: Patient denies any tobacco usage or history of. Screenin:10 [facility] ED Fall Risk Assessment (Adult) History of falling in the last 3 months, ld1 including since admission No falls in past 3 months (0 pts) Confusion or Disorientation No (0 pts) Intoxicated or Sedated No (0 pts) Impaired Gait No (0 pts) Mobility Assist Device Used No (0 pt) Altered Elimination No (0 pt) Score/Fall Risk Level 0 - 2 = Low Risk Oriented to surroundings, Hourly rounding (assess needs \T\ fall precautionary measures) done. Abuse screen: Denies threats or abuse. Denies injuries from another. Nutritional screening: No deficits noted. Tuberculosis screening: No symptoms or risk factors identified. Assessment: 08:10 Reassessment: See triage assessment. GI: Abdomen is round non-distended, Reports lower ld1 abdominal pain, nausea. 09:44 Reassessment: Patient appears in no apparent distress at this time. No changes from ld1 previously documented assessment. Patient and/or family updated on plan of care and expected duration. Pain level reassessed. Patient is alert, oriented x 3, equal unlabored respirations, skin warm/dry/pink. Patient states feeling better. Patient states symptoms have improved. Vital Signs: 08:00 BP 140 / 79; Pulse 76; Resp 18; Pulse Ox 96% on R/A; Height 5 ft. 4 in. ; Pain 0/10; ld1 08:32 Temp 98.1(TE); ld1 08:51 BP 147 / 69; Pulse 79; Resp 18; Pulse Ox 98% on R/A; ld1 09:44 BP 139 / 76; Pulse 71; Resp 18; Pulse Ox 99% on R/A; ld1 08:00 Pain Scale: Adult ld1 ED Course: 07:56 Patient arrived in ED. ld1 07:57 Gus Stauffer MD is Attending Physician. ec2 08:08 Triage completed. ld1 08:08 Arm band placed on right wrist. ld1 08:10 Patient has correct armband on for positive identification. Placed in gown. Bed in low ld1 position. Call light in reach. Side rails up X2. security monitor on. Pulse ox on. NIBP on. Door closed. Noise minimized. Warm blanket given. 08:10 No provider procedures requiring assistance completed. ld1 08:11 Laura Honeycutt, RN is Primary Nurse. ld1 08:26 Initial lab(s) drawn, by me, sent to lab. EKG done, by ED staff, reviewed by Laura Honeycutt RN COVID swab sent to lab. Flu and/or RSV swab sent to lab. Inserted saline lock: 20 gauge in right wrist, using aseptic technique. Blood collected. Flushed with 10 mL NS. Patient maintains SpO2 saturation greater than 95% on room air. 08:32 SARS RAPID Sent. ld1 08:32 Influenza Screen (a \T\ B) Sent. ld1 08:36 XRAY Chest (1 view) In Process Unspecified. EDMS 09:44 IV discontinued, intact, bleeding controlled, No redness/swelling at site. ld1 Administered Medications: 08:31 Drug: NS 0.9% IV 1000 ml IV at 1000 ml once; to be given as a bolus over 60 minutes ld1 Route: IV; Rate: 1000 ml; Site: right wrist; 09:30 Follow up: Response: No adverse reaction; IV Status: Completed infusion; IV Intake: ld1 1000ml 08:31 Drug: metoCLOPramide IVP 10 mg IVP once; over 1 to 2 minutes Route: IVP; Site: right ld1 wrist; 09:00 Follow up: Response: No adverse reaction ld1 08:31 Drug: diphenhydrAMINE IVP 50 mg IVP once Route: IVP; Site: right wrist; ld1 09:00 Follow up: Response: No adverse reaction ld1 Medication: 08:10 VIS not applicable for this client. ld1 Intake: 09:30 IV: 1000ml; Total: 1000ml. ld1 Outcome: 09:27 Discharge ordered by . ec2 :44 Discharged to home ambulatory, with family, ld1 :44 Condition: stable :44 Discharge instructions given to patient, family, Instructed on discharge instructions, follow up and referral plans. medication usage, Demonstrated understanding of instructions, follow-up care, medications, Prescriptions given X 1, :44 Patient left the ED. ld1 Signatures: Dispatcher MedHoLaura Dougherty, RN RN ld1 Dominique Vasques, RN RN [id number] Gus Stauffer MD MD ec2
--- NOTE | 2024-04-30 09:28 | EDPHYS ---
Physician Documentation [facility] Name: Liberty Bah Age: 73 yrs Sex: Female : 1950 Arrival Date: 04/30/2024 Time: 07:56 Bed 6 Private MD: ED Physician Gus Stauffer HPI: 04/30 08:16 This 73 yrs old Female presents to ER via EMS with complaints of Nausea, ec2 Diarrhea. 08:16 Patient arrives today for evaluation of nausea, vomiting, diarrhea. Reports symptoms ec2 started last night. Reports that she has been having progressive abdominal cramping as well as nausea.. Historical: - Allergies: 08:08 PENICILLINS; ld1 - Home Meds: 08:08 Plavix 75 mg Oral tab 1 tab once daily [Active]; ld1 - PMHx: 08:08 Diabetes - NIDDM; Hypertension; Myocardial infarction; ld1 - Immunization history:: Adult Immunizations up to date. - Infectious Disease History:: Denies. - Social history:: Smoking status: Patient denies any tobacco usage or history of. ROS: 08:16 Constitutional: as per hpi ec2 Exam: 08:16 Constitutional: No acute distress ec2 08:16 Constitutional: GEN: NAD Head: atraumatic Eyes: EOMI Ears: External ears are normal. CV: regular rate LUNGS: no respiratory distress ABD: non-distended, soft, nontender, no guarding, not rigid SKIN: no evidence of rashes MSK: no evidence of trauma. Neuro: Cranial nerves II through XII intact, strength intact all 4 extremities. Vital Signs: 08:00 BP 140 / 79; Pulse 76; Resp 18; Pulse Ox 96% on R/A; Height 5 ft. 4 in. ; Pain 0/10; ld1 08:32 Temp 98.1(TE); ld1 08:51 BP 147 / 69; Pulse 79; Resp 18; Pulse Ox 98% on R/A; ld1 09:44 BP 139 / 76; Pulse 71; Resp 18; Pulse Ox 99% on R/A; ld1 08:00 Pain Scale: Adult ld1 MDM: 07:58 Medical Screening Exam initiated ec2 08:16 Data reviewed: vital signs, nurses notes. ED course: Patient arrives today for ec2 evaluation of nausea, vomiting, diarrhea. Examination yields well-appearing nontoxic dividual's otherwise hemodynamically stable in no acute distress will obtain lab work, urine studies, EKG. EKG was obtained, dependently reviewed and interpreted by me, shows normal sinus rhythm, rate of 75, no acute ST segment elevations, intervals are nonactionable, PAC noted.. 04/30 08:07 Order name: Basic Metabolic Panel; Complete Time: 09:08 ec2 04/30 08:07 Order name: CBC with Diff; Complete Time: 09:08 ec2 04/30 08:07 Order name: Troponin HS; Complete Time: 09:08 ec2 04/30 08:07 Order name: Influenza Screen (a \T\ B) ec2 04/30 08:07 Order name: SARS RAPID ec2 04/30 08:07 Order name: UAM; Complete Time: 09:08 ec2 04/30 08:07 Order name: XRAY Chest (1 view); Complete Time: 09:08 ec2 04/30 08:07 Order name: EKG; Complete Time: 08:08 ec2 04/30 08:07 Order name: Cardiac monitoring; Complete Time: 08:15 ec2 04/30 08:07 Order name: EKG - Nurse/Tech; Complete Time: 08:15 ec2 04/30 08:07 Order name: IV Saline Lock; Complete Time: 08:26 ec2 04/30 08:07 Order name: Labs collected and sent; Complete Time: 08:26 ec2 04/30 08:07 Order name: O2 Per Protocol; Complete Time: 08:08 ec2 04/30 08:07 Order name: O2 Sat Monitoring; Complete Time: 08:08 ec2 Administered Medications: 08:31 Drug: NS 0.9% IV 1000 ml IV at 1000 ml once; to be given as a bolus over 60 minutes ld1 Route: IV; Rate: 1000 ml; Site: right wrist; 09:30 Follow up: Response: No adverse reaction; IV Status: Completed infusion; IV Intake: ld1 1000ml 08:31 Drug: metoCLOPramide IVP 10 mg IVP once; over 1 to 2 minutes Route: IVP; Site: right ld1 wrist; 09:00 Follow up: Response: No adverse reaction ld1 08:31 Drug: diphenhydrAMINE IVP 50 mg IVP once Route: IVP; Site: right wrist; ld1 09:00 Follow up: Response: No adverse reaction ld1 Disposition Summary: 04/30/24 09:27 Discharge Ordered Notes: Location: Home ec2 Condition: Stable ec2 Diagnosis - Nausea with vomiting, unspecified ec2 - Diarrhea, unspecified ec2 Followup: ec2 - With: Private Physician - When: - Reason: Re-evaluation by your physician Discharge Instructions: - Discharge Summary Sheet ec2 - Diarrhea, Adult ec2 Forms: - Medication Reconciliation Form ec2 - Antibiotic Education ec2 - Prescription Opioid Use ec2 - Patient Portal Instructions ec2 - Leadership Thank You Letter ec2 Prescriptions: - Reglan 10 mg Oral Tablet - take 1 tablet ORAL route every 6 hours take 30 minutes before meals and at ec2 bedtime; 20 tablet; Refills: 0, Product Selection Permitted Signatures: Dispatcher [employer] Laura Lakhani RN RN ld1 Gus Stauffer MD MD ec2
[2024-04-30 10:08] VITALS: TEMP 98.1
[2024-04-30 10:10] VITALS: BP 139/76; O2SAT 99
[2024-04-30 18:42] LABS: SARS-CoV-2 Antigen CONTROL BLUE LINE VIS/BG OK; SARS-CoV-2 Antigen Rapid Res Negative (Negative)
--- NOTE | 2024-05-01 11:29 | EKG ---
Test Date: 2024-04-30 Test Time: 08:14:37 Medical Officer Psychiatry: EMELYN MEASUREMENT RESULTS: Intervals: Rate: 75 MO: 172 QRSD: 74 QT: 384 QTc: 428 [place]: P: MO: 172 QRS: 36 T: 76 INTERPRETIVE STATEMENTS: Sinus rhythm with premature supraventricular complexes Otherwise normal ECG Compared to ECG 06/08/2014 06:41:06 Atrial premature complex(es) now present Electronically Signed On 05-01-24 11:26:37 SERVICE TECH by Stephane Farmer
== END ==
LOC: ER 07:56
DX: R11.2 Nausea with vomiting, unspecified (principal); R19.7 Diarrhea, unspecified; Z11.52 Encounter for screening for COVID-19; E11.9 Type 2 diabetes mellitus without complications; I10 Essential (primary) hypertension; Z79.01 Long term (current) use of anticoagulants
CPT/HCPCS: 85025; 81001; 80048; 36415; 84484; 87804 ×2; 71045; 87811; J2765; J1200; J7030; 93005

== ENCOUNTER 2024-08-01 17:34 | Inpatient (IN) | payer OTHER ==
--- OUTSIDE RECORDS SUMMARY | 2024-08-01 17:47 | XMS REPORT | Continuity of Care Document ---
Author Name Unknown Address [address] [facility]. [address] [place] [address] [facility] Address [address] [facility]. [address] [place] [address] Care Team Providers Care Visual Designer Name Role Phone Kitty Taylor Primary Care Physician [phone] ADONIS MATHIS Attending Clinician Unavailable DENISE DAHL Attending Clinician UnavailDENISE López Attending Clinician UnavailDI Bryson Attending Clinician Di South MD Attending Clinician + [phone] Denise Dahl DO Attending Clinician [phone] Kelly Rendon LVN Attending Clinician UnavailABDIRIZAK Morales Attending Clinician Unavailable ABDIRIZAK LAIRD Attending Clinician Unavailable Abdirizak Laird MD Attending Clinician Therapist, Adc Respiratory Attending Clinician U navailable Unknown, Attending Attending Clinician Unavailab matt UNKNOWN, ATTENDING Attending Clinician Unavailab matt Mike RN, Billy Manriquez Attending Clinician Unavail able JB ALICEA Attending Clinician Unavailable Denia DYER AND WASHER, Familia Attending Clinician [phone] Jb Alicea DO Attending Clinician [phone] GELACIO BLAS Attending Clinician Unavailable Anerafael COLLECTOR, Gelacio Attending Clinician + [phone] Arely López MA A Attending Clinician Unavailab matt Richards MD, Di Eugene Attending Clinician [phone] Roopa COLLECTOR, Gelacio Attending Clinician [phone] FLORENCIO OROPEZA Attending Clinician Unavailable Unknown, Attending Attending Clinician Unavailab matt Oropeza COLLECTOR, Florencio Attending Clinician [phone] Gena Driver LCSW Attending Clinician [phone] Lab, Ang - Db Attending Clinician Unavailable JARAD FLETCHER Attending Clinician Unavailable TETO GUTIERREZ Attending Clinician Unavailable Matt COLLECTOR, Teto Attending Clinician [phone] EbPoly Tolentino Attending Clinician [phone] POLY WHITEHEAD Attending Clinician Unavailable Doctor Unassigned, [place] Attending Clinician U Jarad Arshad MD Attending Clinician [phone] [email or web address]_S Attending Clinician Unavaila NILA Amor Attending Clinician Unavailable Kartik Weiner LVN Attending Clinician Ashley Melo RN, Sloane Attending Clinician Unavailskinny elmore Only, Ang Db Test Attending Clinician UnavailSAUNDRA Madrid Attending Clinician Unavailable Saundra Saldivar Attending Clinician [phone] RACHEL CEVALLOS Attending Clinician Unavailskinny Cevallos MD, Rachel Bird Attending Clinician [phone] Haily AGGARWAL, Gifty Bird Attending Clinician Unavail JORDAN Boyer Attending Clinician Unavailable Joon TATUM, Junaid Rangel Attending Clinician [phone] Adin Haksins MD Attending Clinician [phone] Tracey TATUM, Jordan Attending Clinician [phone] Rafa Amezquita MD Attending Clinician [phone] CARRIE KESSLER Attending Clinician Unavailable Checo TATUM, Carrie Attending Clinician [phone] Lisandro Zhu MD Attending Clinician [phone] RAJ METZ Attending Clinician Unavailable Raj Lala Attending Clinician [phone] JUSTIN ACOSTA Attending Clinician Unavailable Justin Acosta DO Attending Clinician [phone] Analisa Daniels MA Attending Clinician Unavailab matt Rapp RN, Diamante Duarte Attending Clinician Unavailab matt Pcp, Patient Does Not Have A Attending Clinician Marcelino AGGARWAL, [place] Attending Clinician Unavailab Miles Teran MD Attending Clinician [phone] MILES GOLDEN Attending Clinician Unavailable PABLO VILLEDA Attending Clinician Unavailab DENISE Gamboa Admitting Clinician Unavailab JB Zamarripa Admitting Clinician Unavailable Jb Alicea DO Admitting Clinician [phone] [email or web address]_Kadiyala_S Admitting Clinician UnavailGELACIO Garcia Admitting Clinician Unavailable JORDAN WEBB Admitting Clinician Unavailable Jordan Webb MD Admitting Clinician [phone] PABLO VILLEDA Admitting Clinician Unavailab gutierrez Payers Payer Name Policy Type Policy Number Effective Date Expirati on Date Source [facility] [employer] [id number] 2021 00:00:00 [facility] MEDICARE ADVANTAGE [id number] 2020 00:00:00 MEDICARE PART A \\T\\ B [id number] 2010 00:00:00 Problems Condition Name Condition Details Condition Category Status Onset Date Resolution Date Last Treatment Date Treating Clinician Comments Source Chest pain, unspecifie d type Chest pain, unspecifie d type Disease Active 2023-03 00:00: 00 [facility] Dyslipidem ia Dyslipidem ia Disease Active 2023-03 0-07 00:00: 00 [facility] 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 Disease Active 8-18 00:00: 00 [facility] Low back pain Low back pain Disease Active 8-18 00:00: 00 [facility] Coronary artery disease involving kiana coronary artery of kiana heart without angina pectoris Coronary artery disease involving kiana coronary artery of kiana heart without angina pectoris Disease Active 2021-03 0-31 00:00: 00 [facility] PAD (periphera l artery disease) PAD (periphera l artery disease) Disease Active 2021-03 0 00:00: 00 [facility] Primary hypertensi on Primary hypertensi on Disease Active 2021-03 0 00:00: 00 [facility] Coronary artery disease involving kiana coronary artery of kiana heart without angina pectoris Coronary artery disease involving kiana coronary artery of kiana heart without angina pectoris Disease Active 2021-03 0 00:00: 00 [facility] Tachycardi a Tachycardi a Disease Active 2021-03 030 00:00: 00 [facility] Hip pain, acute, right Hip pain, acute, right Disease Active 2021-03 0 00:00: 00 [facility] Fall from ground level Fall from ground level Disease Active 2021-03 0 00:00: 00 [facility] Type 2 diabetes mellitus without complicati on, without long-term current use of insulin Type 2 diabetes mellitus without complicati on, without long-term current use of insulin Disease Active 2021-03 0 00:00: 00 [facility] GERD (gastroeso phageal reflux disease) GERD (gastroeso phageal reflux disease) Disease Active 2021-03 0-27 00:00: 00 [facility] Chronic pain syndrome Chronic pain syndrome Disease Active 2021-03 027 00:00: 00 [facility] Type 2 diabetes mellitus with other specified complicati on Type 2 diabetes mellitus with other specified complicati on Disease Active 2021-03 0-27 00:00: 00 [facility] Chronic pain Chronic pain Disease Active 0 4-21 00:00: 00 [facility] Spasm of back muscles Spasm of back muscles Disease Active 0 4-07 00:00: 00 [facility] Disorder of glenohumer al joint Disorder of glenohumer al joint Disease Active 0 3-08 00:00: 00 [facility] Neck pain Neck pain Disease Active 0 3-07 00:00: 00 [facility] Shoulder pain Shoulder pain Disease Active 0 3-06 00:00: 00 [facility] Closed fracture of right hip with routine healing Closed fracture of right hip with routine healing Disease Active 1-24 00:00: 00 [facility] Hip pain Hip pain Disease Active 2020-03 0-04 00:00: 00 [facility] Injury of right hip region Injury of right hip region Disease Active 2020-03 0-04 00:00: 00 Overview: Formattin g of this note might be different from the original. Removal Reason: Resolved [facility] Injury of right wrist Injury of right wrist Disease Active 2020-03 0-04 00:00: 00 Overview: Formattin g of this note might be different from the original. Removal Reason: ResolvedR emoval Reason: Resolved [facility] Closed displaced intertroch anteric fracture of right femur with routine healing Closed displaced intertroch anteric fracture of right femur with routine healing Disease Active 2020-03 0-01 00:00: 00 [facility] Closed Colles' fracture of right radius with routine healing Closed Colles' fracture of right radius with routine healing Disease Active 2020-03 0-01 00:00: 00 [facility] Right wrist pain Right wrist pain Disease Active 2020-03 0-01 00:00: 00 [facility] Inflammati on of sacroiliac joint Inflammati on of sacroiliac joint Disease Active 2017-03 2-20 00:00: 00 [facility] Cervical spondylosi s without myelopathy Cervical spondylosi s without myelopathy Disease Active 2-15 00:00: 00 [facility] Degenerati on of lumbar or lumbosacra l interverte bral disc Degenerati on of lumbar or lumbosacra l interverte bral disc Disease Active 215 00:00: 00 [facility] Cervical spondylosi s Cervical spondylosi s Disease Active 05-10 00:00: 00 [facility] Degenerati on of lumbar interverte bral disc Degenerati on of lumbar interverte bral disc Disease Active 215 00:00: 00 [facility] Leg pain Leg pain Disease Active 2008-03 00:00: 00 [facility] Allergies, Adverse Reactions, Alerts Allergy Name Allergy Type Status Severity Reaction(s) Onset Date Inactive Date Treating Clinician Comments Source [facility] Drug Class Active High Anaphylaxis 09-25 00:00: 00 [facility] Penicill ins Drug Allergy Active Rash 09-25 00:00: 00 [facility] Penicill ins Drug Allergy Active Rash 09-25 00:00: 00 [facility] Penicill ins Drug Allergy Active Rash 0 7 00:00: 00 [facility]icill ins Allergy to substanc e Active Rash 7 00:00: 00 [facility] Family History Family Member Diagnosis Comments Start Date Stop Date Sourc e Natural brother Cancer [facility] Natural [facility] Social History Social Habit Start Date Stop Date Quantity Comments Source History of tobacco use Cigarette Smoker [facility] Gender identity [facility] Sexual orientation [facility]ION Not [facility] Alcoholic beverage intake 2024-06-09 00:00:00 2024-06-09 00:00:00 Current non-drinker of alcohol (finding) [facility] Education 2023-12-31 00:00:00 2023-12-31 00:00:00 12 [facility] Cigarettes smoked current (pack per day) - Reported 2023-12-11 00:00:00 2023-12-11 00:00:00 [facility] Cigarette pack-years 2023-12-11 00:00:00 2023-12-11 00:00:00 [facility] Tobacco use and exposure 2023-12-11 00:00:00 2023-12-11 00:00:00 Smokeless tobacco non-user [facility] History of Social function 2023-12-04 00:00:00 2023-12-04 00:00:00 [facility] Exposure to SARS-CoV-2 (event) 2022-07-19 00:00:00 2022-07-29 10:36:00 Not sure [facility] Alcohol intake 2021-04-08 00:00:00 2021-04-08 00:00:00 0 /d [facility] Sex Assigned At 1950 00:00:00 1950 00:00:00 [facility] Smoking Status Start Date Stop Date Source Tobacco smoking consumption unknown [facility] Smokes tobacco daily 2023-12-11 00:00:00 [facility] Never smoked tobacco [facility] Medications Ordered Medication Name Filled Medication Name Start Date Stop Date Current Medication? Ordering Clinician Indication Dosage Frequency Signature (SIG) Comments Components Source METOCLOPRAM HOMA HCL 10 mg tablet 07-22 00:00: 00 Yes [id number] TAKE ONE (1) TABLET BY MOUTH BEFORE MEALS AND AT BEDTIME. [facility] METOCLOPRAM HOMA HCL 10 mg tablet 07-04 00:00: 00 07-22 00:00 :00 No [id number] TAKE ONE (1) TABLET BY MOUTH BEFORE MEALS AND AT BEDTIME. [facility] clopidogreL 75 mg tablet 06-30 00:00: 00 Yes [id number] TAKE 1 TABLET BY MOUTH EVERY DAY FOR 90 DAYS [facility] loratadine (CLARITIN) 10 mg tablet 06-09 00:00: 00 Yes [id number] 10mg Take 1 tablet by mouth in the morning. [facility] fluticasone propionate (FLONASE ALLERGY RELIEF) 50 mcg/actuati on nasal spray 06-09 00:00: 00 Yes [id number] 2{spray } Use 2 Sprays in each nostril in the morning. [facility] metoclopram homa HCl 10 mg tablet 2024-0 3-04 00:00: 00 Yes [id number] 10mg Take 1 tablet by mouth before meals and at bedtime. [facility] metoclopram homa HCl 10 mg tablet 2024-0 2-20 00:00: 00 Yes [id number] 10mg Take 1 tablet by mouth before meals and at bedtime. [facility] metoclopram homa HCl 10 mg tablet 0 2-19 00:00: 00 05-14 00:00 :00 No [id number] 10mg Take 1 tablet by mouth before meals and at bedtime. [facility] metFORMIN 500 mg tablet 2-10 00:00: 00 Yes [id number] 500mg Take 1 tablet by mouth in the morning and 1 tablet in the evening. Take with meals. [facility] pantoprazol e 40 mg EC tablet 2-10 00:00: 00 Yes [id number] TAKE 1 TABLET BY MOUTH EVERY DAY [facility] alendronate 70 mg tablet 2-10 00:00: 00 Yes [id number] 70mg Take 1 tablet by mouth weekly. [facility] metoclopram homa HCl 10 mg tablet 2-05 00:00: 00 05-14 00:00 :00 No 10mg Take 1 tablet by mouth before meals and at bedtime. [facility] albuterol 90 mcg/actuati on inhaler 1-28 00:00: 00 Yes [id number] 2{puff} Inhale 2 Puffs every 6 (six) hours as needed for Wheezing or Shortness of Breath. [facility] tiotropium 18 mcg inhalation 2023-03 2-31 00:00: 00 Yes [id number] 18ug Inhale 1 capsule in the morning. [facility] albuterol 90 mcg/actuati on inhaler 2023-03 0-16 00:00: 00 Yes [id number] 2{puff} Inhale 2 Puffs every 6 (six) hours as needed for Wheezing or Shortness of Breath. [facility] clopidogreL 75 mg tablet 2023-03 00:00: 00 06-29 00:00 :00 No [id number] TAKE 1 TABLET BY MOUTH EVERY DAY FOR 90 DAYS [facility] alendronate 70 mg tablet 2023-0316 00:00: 00 05-05 00:00 :00 No [id number] 70mg Take 1 tablet by mouth weekly. [facility] alendronate (FOSAMAX) tablet 70 mg 2023-03 05:00: 00 Yes 70mg [facility] atorvastati n (LIPITOR) tablet 20 mg 2023-03 22:00: 00 Yes 20mg [facility] pantoprazol e (PROTONIX) EC tablet 40 mg 2023-03 14:00: 00 Yes 40mg 40 mg, Oral, DAILY, First dose on Sun01/01/24 at 0900, Until Discontinu ed, Routine [facility] clopidogreL (PLAVIX) 75 mg tablet 75 mg 2023-03 14:00: 00 Yes 75mg 75 mg, Oral, DAILY, First dose on Sun01/01/24 at 0900, Until Discontinu ed, Routine [facility] aspirin chewable tablet 81 mg 2023-03 14:00: 00 Yes 81mg 81 mg, Oral, DAILY, First dose on Sun01/01/24 at 0900, Until Discontinu ed, Routine [facility] magnesium sulfate in water 2 gram/50 mL (4 %) infusion 2 g 2023-03 12:30: 00 12-31 13:51 :00 No 2g 2 g, IV Piggyback, Administer over 60 Minutes, ONCE, 1 dose, On Sun01/01/24 at 0730, Routine [facility] cyclobenzap rine (FLEXERIL) tablet 10 mg 2023-03 07:15: 00 12-31 06:23 :00 No [id number] 10mg 10 mg, Oral, ONCE, 1 dose, On Sun01/01/24 at 0215, Routine [facility] clonazePAM (KLONOPIN) tablet 0.25 mg 2023-03 0 02:11: 10 Yes .25mg [facility] nicotine 21 mg/24 hr patch 2023-03 0 00:00: 00 01-08 00:00 :00 No [id number] 1{patch } Apply 1 Patch to area(s) every 24 (twenty-fo ur) hours for 28 days. [facility] benzonatate 100 mg capsule 2023-03 00:00: 00 01-08 00:00 :00 No [id number] 100mg Take 1 capsule by mouth every 8 (eight) hours as needed for Cough for up to 10 days. [facility] methocarbam oL 500 mg tablet 2023-03 00:00: 00 01-04 04:59 :00 No [id number] 500mg Take 1 tablet by mouth in the morning and 1 tablet at noon and 1 tablet in the evening. Take with meals. Do all this for 3 days. [facility] codeine-gua ifenesin (ROBITUSSIN AC) 10-100 mg/5 mL oral solution 5 mL 2023-03 0 23:18: 57 Yes 5mL 5 mL, Oral, Q6HPRN, Starting on Sun12/31/23 at 1818, Until Discontinu ed, Routine, Cough [facility] enoxaparin (LOVENOX) injection 40 mg 2023-03 22:00: 00 Yes 40mg 40 mg, Subcutaneo us, DAILY, First dose on Sun12/31/23 at 1700, Until Discontinu ed, Routine [facility] nicotine (NICODERM) 21 mg/24 hr patch 1 Patch 2023-03 20:00: 00 Yes 1{patch } 1 Patch, Topical, Administer over 24 Hours, Q24H, First dose on Sun12/31/23 at 1500, Until Discontinu ed, Routine [facility] Sliding Scale Insulin - Lispro (HumaLOG) 2023-03 17:00: 00 Yes Subcutaneo us, TID MEALS+HS, First dose on Sun12/31/23 at 1200, Until Discontinu ed, Routine [facility] glucagon HCL injection 1 mg 2023-03 16:49: 50 Yes 1mg 1 mg, Intramuscu lar, PRN, Starting on Sun12/31/23 at 1149, Until Discontinu ed, CANDIDO, Low blood sugar, Blood Glucose < or = 70 mg/dL and patient is NPO, unable to swallow or has mental changes. [facility] dextrose 50 % in water (D50W) injection 25 mL 2023-03 16:49: 50 Yes 25mL 25 mL, Slow IV Push, PRN, Starting on Sun12/31/23 at 1149, Until Discontinu ed, CANDIDO, Blood Glucose < or = 70 mg/dL and patient is NPO, unable to swallow or has mental status changes. [facility] ondansetron (ZOFRAN (PF)) injection 4 mg 2023-03 16:47: 12 Yes 4mg 4 mg, Slow IV Push, Q6HPRN, Starting on Sun12/31/23 at 1147, Until Discontinu ed, Routine, Nausea and Vomiting (N/V) [facility] morphine (2 mg/mL) injection 2 mg 2023-03 16:47: 05 12-31 16:46 :05 No 2mg 2 mg, Slow IV Push, Q4HPRN, Starting on Sun12/31/23 at 1147, Until Sun01/01/24 at 1146, Routine, Pain (scale 7-10) [facility] acetaminoph en (TYLENOL) tablet 650 mg 2023-03 16:46: 54 Yes 650mg 650 mg, Oral, Q6HPRN, Starting on Sun12/31/23 at 1146, Until Discontinu ed, Routine, Pain (scale 1-3) [facility] nitroglycer in (NITROL) 2 % ointment 0.5 Inch 2023-03 15:30: 00 12-30 15:53 :00 No .5[in_u s] 0.5 Inch, Transderma l (Apply To Skin), ONCE, 1 dose, On Sun12/31/23 at 1030, CANDIDO [facility] aspirin tablet 325 mg 2023-03 13:30: 00 12-30 13:54 :00 No 325mg 325 mg, Oral, ONCE, 1 dose, On Sun12/31/23 at 0830, STAT [facility] atorvastati n 20 mg tablet 12-10 00:00: 00 Yes [id number] 20mg Take 1 tablet by mouth every evening. [facility] metFORMIN 500 mg tablet 12-10 00:00: 00 05-05 00:00 :00 No [id number] 500mg Take 1 tablet by mouth in the morning and 1 tablet in the evening. Take with meals. [facility] albuterol 90 mcg/actuati on inhaler 12-10 00:00: 00 01-08 00:00 :00 No [id number] 2{puff} Inhale 2 Puffs every 6 (six) hours as needed for Wheezing or Shortness of Breath. [facility] benzonatate (TESSALON PERLES) 100 mg capsule 12-10 00:00: 00 12-30 00:00 :00 No [id number] 100mg Take 1 capsule by mouth every 8 (eight) hours as needed for Cough. [facility] azithromyci n 250 mg tablet 12-10 00:00: 00 12-17 04:59 :00 No [id number] 250mg Take 1 tablet by mouth in the morning for 6 days. Take 500 mg day 1, then 250 mg days 2 to 5. [facility] methylPREDN ISolone 4 mg tablets 12-10 00:00: 00 12-17 04:59 :00 No [id number] Take by mouth SEE-INSTRU CTIONS for 6 days. follow package directions [facility] alendronate 70 mg tablet 10-22 00:00: 00 01-08 00:00 :00 No [id number] 70mg Take 1 tablet by mouth weekly. [facility] HYDROcodone -acetaminop hen 10-325 mg tablet 10-16 00:00: 00 12-30 00:00 :00 No TAKE ONE TABLET BY MOUTH FOUR TIMES DAILY NEEDED [facility] clopidogreL 75 mg tablet 07-18 00:00: 00 01-08 00:00 :00 No [id number] TAKE 1 TABLET BY MOUTH EVERY DAY FOR 90 DAYS [facility] benzonatate (TESSALON PERLES) 100 mg capsule 07-14 00:00: 00 12-10 00:00 :00 No [id number] 100mg Take 1 capsule by mouth every 8 (eight) hours as needed for Cough. [facility] azithromyci n 250 mg tablet 07-14 00:00: 00 11-12 00:00 :00 No [id number] 250mg Take 1 tablet by mouth in the morning. Two tablets on day one and one tablet on days two through fiver. [facility] metFORMIN 500 mg tablet 05-15 00:00: 00 12-10 00:00 :00 No [id number] 500mg Take 1 tablet by mouth in the morning and 1 tablet in the evening. Take with meals. [facility] atorvastati n 20 mg tablet 05-15 00:00: 00 12-10 00:00 :00 No [id number] 20mg Take 1 tablet by mouth every evening. [facility] PANTOPRAZOL E 40 mg EC tablet 04-17 00:00: 00 05-05 00:00 :00 No [id number] TAKE 1 TABLET BY MOUTH EVERY DAY [facility] albuterol 90 mcg/actuati on inhaler - 00:00: 00 12-10 00:00 :00 No [id number] 2{puff} Inhale 2 Puffs every 6 (six) hours as needed for Wheezing or Shortness of Breath. [facility] benzonatate 200 mg capsule - 00:00: 00 11-12 00:00 :00 No [id number] 200mg Take 1 capsule by mouth 3 (three) times daily as needed for Cough. [facility] azithromyci n 500 mg tablet 1-10 00:00: 00 05-15 00:00 :00 No [id number] 500mg Take 1 tablet by mouth in the morning. [facility] oseltamivir (TAMIFLU) 75 mg capsule 2022-03 2- 00:00: 00 03-27 05:59 :00 No [id number] 75mg Take 1 capsule by mouth in the morning and 1 capsule in the evening. Do all this for 5 days. [facility] Nitrofurant oin&Nit. Macrocryst (MACROBID) 100 mg capsule 2022-03 2 00:00: 00 03-25 05:59 :00 No [id number] 100mg Take 1 capsule by mouth in the morning and 1 capsule in the evening. Do all this for 7 days. [facility] triamcinolo ne acetonide (KENALOG) injection 20 mg 2022-03 2- 17:30: 00 03-07 16:35 :00 No [id number] 20mg [facility] triamcinolo ne acetonide (KENALOG) injection 20 mg 2022-03 0-25 22:45: 00 01-17 22:34 :00 No [id number] 20mg [facility] ATORVASTATI N 20 mg tablet 2022-03 0-16 00:00: 00 05-15 00:00 :00 No 20mg TAKE 1 TABLET BY MOUTH EVERY DAY IN THE EVENING [facility] PAXLOVID 150-100 mg tablet 8-24 00:00: 00 05-15 00:00 :00 No [id number] 2{tbl} TAKE 2 TABLETS BY MOUTH IN THE MORNING AND 2 TABLETS IN THE EVENING [facility] acetaminoph en (TYLENOL ARTHRITIS PAIN) 650 mg CR tablet 8-18 00:00: 00 01-08 00:00 :00 No [id number] 650mg Take 1 tablet by mouth 2 (two) times daily as needed for Pain. [facility] metFORMIN 500 mg tablet 2023-0 8-18 00:00: 00 05-15 00:00 :00 No [id number] 500mg Take 1 tablet by mouth in the morning and 1 tablet in the evening. Take with meals. [facility] ALENDRONATE 70 mg tablet 7-03 00:00: 00 10-22 00:00 :00 No [id number] TAKE 1 TABLET BY MOUTH ONE TIME PER WEEK [facility] METFORMIN 500 mg tablet 6-21 00:00: 00 11-10 00:00 :00 No [id number] TAKE 1 TABLET BY MOUTH TWICE A DAY WITH MEALS [facility] pantoprazol e 40 mg EC tablet -20 00:00: 00 04-17 00:00 :00 No [id number] TAKE 1 TABLET BY MOUTH EVERY DAY [facility] mupirocin 2 % ointment 5- 00:00: 00 12-30 00:00 :00 No [id number] Apply to area(s) 3 (three) times daily. [facility] CLOPIDOGREL 75 mg tablet 4-05 00:00: 00 07-17 00:00 :00 No [id number] TAKE 1 TABLET BY MOUTH EVERY DAY FOR 90 DAYS [facility] fludeoxyglu cose F-18 (FDG) injection 10.16 millicurie 06-15 14:15: 00 06-15 14:14 :00 No [id number] 10.16mC i 10.16 millicurie , Intravenou s, ONCE, 1 dose, On Jen 06/15/22 at 0915, Routine [facility] methocarbam oL 500 mg tablet 3-06 09:02: 57 05-29 00:00 :00 No methocarba mol 500 mg tablet TAKE 1 TABLET BY MOUTH TWICE A DAY FOR 28 DAYS [facility] methocarbam oL 500 mg tablet 2-16 15:59: 03 Yes methocarba mol 500 mg tablet TAKE 1 TABLET BY MOUTH TWICE A DAY FOR 28 DAYS [facility] clonazePAM 0.25 mg disintegrat ing tablet 16 15:59: 03 Yes clonazepam 0.[address] ting tablet [address] 1 TABLET EVERY DAY BY TRANSLINGU AL ROUTE NEEDED FOR 28 DAYS. [facility] pantoprazol e 40 mg EC tablet 2021-03-15 00:00: 00 09-12 00:00 :00 No [id number] pantoprazo le 40 mg tablet,del ayed release [facility] metoprolol succinate XL 25 mg 24 hr tablet 2021-03 00:00: 00 02-25 05:59 :00 No [id number] 12.5mg Take 0.5 tablets by mouth in the morning for 30 days. [facility] lactobacill us acidophilus 2021-03 00:00: 00 02-05 05:59 :00 No [id number] .5mg Take 1 tablet by mouth in the morning for 10 days. [facility] clonazePAM 0.25 mg disintegrat ing tablet 2021-03 19:05: 02 Yes clonazepam 0.25 mg dis[address]gra ting tablet PL[address] 1 TABLET EVERY DAY BY TRANSLINGU AL ROUTE NEEDED FOR 28 DAYS. [facility] methocarbam oL 500 mg tablet 2021-03 19:05: 02 Yes methocarba mol 500 mg tablet TAKE 1 TABLET BY MOUTH TWICE A DAY FOR 28 DAYS [facility] metoprolol succinate XL (TOPROL XL) tablet 12.5 mg 2021-03 14:00: 00 Yes 12.5mg 12.5 mg, Oral, DAILY, First dose on Sun01/24/22 at 0900, Until Discontinu ed, Routine [facility] lisinopriL (PRINIVIL,Z ESTRIL) tablet 2.5 mg 2021-03 14:00: 00 Yes 2.5mg 2.5 mg, Oral, DAILY, First dose (after last modificati on) on Sun01/24/22 at 0900, Until Discontinu ed, Routine [facility] nicotine 21 mg/24 hr patch 2021-03 00:00: 00 02-22 05:59 :00 No [id number] 1{patch } Apply 1 Patch to area(s) every 24 (twenty- ur) hours for 28 days. [facility] levoFLOXaci n 750 mg tablet 2021-03 00:00: 00 01-30 05:59 :00 No [id number] 750mg Take 1 tablet by mouth every 24 (- ur) hours for 5 days. [facility] levalbutero l (XOPENEX) nebulizer solution 0.31 mg 2021-03 20:31: 21 Yes .31mg 0.31 mg, Inhalation , TIDPRN, Starting on Sun01/23/22 at 1531, Until Discontinu ed, Routine, Wheezing, Shortness of Breath [facility] metoprolol tartrate (LOPRESSOR) tablet 12.5 mg 2021-03 13:45: 00 01-24 12:13 :25 No 12.5mg 12.5 mg, Oral, BID, First dose on Sun01/23/22 at 0845, Until Discontinu ed, Routine [facility] melatonin (MELATIN) tablet 3 mg 2021-03 02:00: 00 Yes 3mg 3 mg, Oral, QHS, First dose on Sun01/22/22 at 2100, Until Discontinu ed, Routine [facility] nicotine (NICODERM) 21 mg/24 hr patch 1 Patch 2021-03 18:30: 00 Yes 1{patch } 1 Patch, Topical, Administer over 24 Hours, Q24H, First dose on Sun01/22/22 at 1330, Until Discontinu ed, Routine [facility] magnesium sulfate in water 2 gram/50 mL (4 %) infusion 2 g 2021-03 14:30: 00 01-22 15:05 :00 No 2g 2 g, IV Piggyback, Administer over 60 Minutes, ONCE, 1 dose, On Sun01/22/22 at 0930, Routine [facility] lactobacill us acidophilus tablet 0.5 mg 2021-03 14:00: 00 Yes .5mg 0.5 mg, Oral, DAILY, First dose on Sun01/22/22 at 0900, Until Discontinu ed, Routine [facility] polyethylen e glycol 3350 powder 17 g 2021-03 14:00: 00 01-24 13:59 :00 No 17g 17 g, Oral, DAILY, 2 doses, First dose on Sun01/22/22 at 0900, Last dose on Sun01/23/22 at 0900, Routine [facility] cyclobenzap rine (FLEXERIL) tablet 5 mg 2021-03 13:00: 00 Yes 5mg 5 mg, Oral, BID, First dose on Sun01/22/22 at 0800, Until Discontinu ed, Routine [facility] ipratropium -albuteroL (DUONEB) 0.5 mg-3 mg(2.5 mg base)/3 mL nebulizer solution 3 mL 2021-03 12:51: 32 01-23 20:31 :37 No 3mL 3 mL, Inhalation , QIDPRN, Starting on Sun01/22/22 at 0751, Until Sun01/23/22 at 1531, Routine, Wheezing, Shortness of Breath [facility] sennosides (SENOKOT) tablet 8.6 mg 2021-03 12:30: 00 Yes 8.6mg 8.6 mg, Oral, BID, First dose on 01/22/22 at 0730, Until Discontinu ed, Routine [facility] docusate (COLACE) capsule 100 mg 2021-03 12:30: 00 Yes 100mg 100 mg, Oral, BID, First dose on 01/22/22 at 0730, Until Discontinu ed, Routine [facility] HYDROcodone -acetaminop hen (NORCO 5) 5-325 mg tablet 1 tablet 2021-03 12:21: 29 Yes 1{tbl} 1 tablet, Oral, Q4HPRN, Starting on 01/22/22 at 0721, Until Discontinu ed, Routine, Pain (scale 4-6) [facility] zolpidem (AMBIEN) tablet 5 mg 2021-03 12:20: 26 Yes 5mg 5 mg, Oral, QHSPRN, Starting on [facility] 01/22/22 at 0720, Until Discontinu ed, Routine, Insomnia [facility] morpHINE (2 mg/mL) injection 2 mg 2021-03 12:19: 58 Yes 2mg 2 mg, Slow IV Push, Q4HPRN, Starting on [facility] 01/22/22 at 0719, Until Discontinu ed, Routine, Pain (scale 7-10) [facility] levoFLOXaci n in D5W (LEVAQUIN) 750 mg/150 mL Piggyback 750 mg 2021-03 05:45: 00 Yes 750mg 750 mg, IV Piggyback, Q24H ABX, First dose on [facility] 01/22/22 at 0045, Until Discontinu ed, Administer over 90 Minutes, 150 mL
Reas on for Anti-Infec tive: Documented Infection< br>Documen tariq Infection Site: Respirator y
Durat ion of Therapy: 7 days [facility] iopamidol (ISOVUE 370-500 mL) injection 75 mL 2021-03 00:30: 00 01-22 00:54 :00 No [id number] 75mL 75 mL, Intravenou s, ONCE, 1 dose, On [facility] 01/21/22 at 1930, Routine [facility] clonazePAM (KLONOPIN) tablet 0.25 mg 2021-03 22:32: 20 Yes .25mg 0.25 mg, Oral, QDAILYPRN, Starting on 01/21/22 at 1732, Until Discontinu ed, Routine, anxiety [facility] methocarbam oL (ROBAXIN) tablet 500 mg 2021-03 21:00: 00 Yes 500mg 500 mg, Oral, QID, First dose on [facility] 01/21/22 at 1600, Until Discontinu ed, Routine [facility] HYDROcodone -acetaminop hen (NORCO 5) 5-325 mg tablet 1 tablet 2021-03 19:30: 04 01-22 12:21 :44 No 1{tbl} 1 tablet, Oral, Q4HPRN, Starting on 01/21/22 at 1430, Until 01/22/22 at 0721, Routine, Pain (scale 7-10) [facility] atorvastati n (LIPITOR) tablet 20 mg 2021-03 02:00: 00 Yes 20mg 20 mg, Oral, QHS, First dose on Sun01/20/22 at 2100, Until Discontinu ed, Routine [facility] enoxaparin (LOVENOX) injection 40 mg 2021-03 14:00: 00 Yes 40mg 40 mg, Subcutaneo us, DAILY, First dose on Sun01/20/22 at 0900, Until Discontinu ed, Routine [facility] pantoprazol e (PROTONIX) EC tablet 40 mg 2021-03 14:00: 00 Yes 40mg 40 mg, Oral, DAILY, First dose on Sun01/20/22 at 0900, Until Discontinu ed, Routine [facility] calcium carbonate (OSCAL-500) tablet 500 mg 2021-03 14:00: 00 Yes 500mg 500 mg, Oral, DAILY, First dose on Sun01/20/22 at 0900, Until Discontinu ed, Routine [facility] clopidogreL (PLAVIX) 75 mg tablet 75 mg 2021-03 14:00: 00 Yes 75mg 75 mg, Oral, DAILY, First dose on Sun01/20/22 at 0900, Until Discontinu ed, Routine [facility] lisinopriL (PRINIVIL,Z ESTRIL) tablet 5 mg 2021-03 14:00: 00 01-24 12:13 :25 No 5mg 5 mg, Oral, DAILY, First dose on Sun01/20/22 at 0900, Until Discontinu ed, Routine [facility] docusate (COLACE) capsule 100 mg 2021-03 14:00: 00 01-22 12:21 :43 No 100mg 100 mg, Oral, DAILY, First dose on Sun01/20/22 at 0900, Until Discontinu ed, Routine [facility] Sliding Scale Insulin - Lispro (HumaLOG) + Fsbg Testing 2021-03 13:00: 00 Yes Subcutaneo us, TID MEALS+HS, First dose on Sun01/20/22 at 0800, Until Discontinu ed, Routine [facility] metFORMIN (GLUCOPHAGE ) tablet 500 mg 2021-03 13:00: 00 Yes 500mg 500 mg, Oral, BID MEALS, First dose on Sun01/20/22 at 0800, Until Discontinu ed, Routine [facility] HYDROcodone -acetaminop hen (NORCO 5) 5-325 mg tablet 1 tablet 2021-03 13:00: 00 01-21 19:29 :53 No 1{tbl} 1 tablet, Oral, BID, First dose on Sun01/20/22 at 0800, Until Discontinu ed, Routine [facility] dextrose 10% (D10W) bolus infusion 250 mL 2021-03 04:08: 14 Yes 250mL 250 mL, IV Infusion, PRN - SEE INSTRUCTIO NS, Administer over 60 Minutes, Other, If blood glucose is < or = 70 mg/dL and patient is unable to swallow or has mental status changes, Starting on Sun01/19/22 at 2308
If blood glucose is < or = 70 mg/dL and patient is unable to swallow or has mental status changes (Give glucagon order if patient needs fluid restrictio n): IF IV access available: Dextrose 10%. 1. 125 mL (? bag) of D10W IV infusion - equivalent to 12.5 g dextrose 2. Blood glucose - draw blood glucose 15 minutes after D10W Administra tion. 3. If blood glucose is < 80 mg/dL, repeat.
[facility] glucagon (GLUCAGEN DIAGNOSTIC KIT) injection 1 mg 2021-03 04:07: 44 Yes 1mg 1 mg, Intramuscu lar, PRN, Starting on Sun01/19/22 at 2307, Until Discontinu ed, CANDIDO, Blood Glucose < or = 70 mg/dL and patient is unable to swallow or has mental changes. [facility] morpHINE (4 mg/mL) injection 4 mg 2021-03 04:06: 41 01-21 04:05 :41 No 4mg 4 mg, Slow IV Push, Q4HPRN, Starting on Sun01/19/22 at 2306, Until Sun01/20/22 at 2305, Routine, Pain (scale 7-10) [facility] acetaminoph en (TYLENOL) tablet 650 mg 2021-03 04:06: 32 Yes 650mg 650 mg, Oral, Q6HPRN, Starting on Sun01/19/22 at 2306, Until Discontinu ed, Routine, Pain (scale 1-3) [facility] FENTanyl PF (SUBLIMAZE (PF)) injection 25 mcg 2021-03 04:00: 00 01-20 03:07 :00 No 25ug 25 mcg, Slow IV Push, ONCE, 1 dose, On Sun01/19/22 at 2300, Routine [facility] codeine-gua ifenesin 10-100 mg/5 mL oral solution 2021-03 23:10: 09 01-19 00:00 :00 No Guaiatussi n AC 10 mg-100 mg/5 mL oral liquid TAKE 5 ML BY MOUTH EVERY 6 (SIX) HOURS NEEDED FOR COUGH FOR UP TO 7 DAYS. INDICATION S: COUGH [facility] clonazePAM 0.25 mg disintegrat ing tablet 11-21 09:24: 55 Yes clonazepam 0.25 mg [address] ting tablet [address] 1 TABLET EVERY DAY BY TRANSLINGU AL ROUTE NEEDED FOR 28 DAYS. [facility] codeine-gua ifenesin 10-100 mg/5 mL oral solution 11-21 09:24: 55 Yes Guaiatussi n AC 10 mg-100 mg/5 mL oral liquid TAKE 5 ML BY MOUTH EVERY 6 (SIX) HOURS NEEDED FOR COUGH FOR UP TO 7 DAYS. INDICATION S: COUGH [facility] methocarbam oL 500 mg tablet 11-21 09:24: 55 Yes methocarba mol 500 mg tablet TAKE 1 TABLET BY MOUTH TWICE A DAY FOR 28 DAYS [facility] molnupiravi r 200 mg capsule 11-21 00:00: 00 05-29 00:00 :00 No [id number] 800mg Take 4 capsules by mouth every 12 (twelve) hours. [facility] bromphenira mine-pseudo ephedrine-D M (BROMFED DM) 2-30-10 mg/5 mL syrup 8-29 00:00: 00 05-29 00:00 :00 No [id number] 5mL Take 5 mL by mouth 4 (four) times daily as needed for Congestion /Allergies . [facility] benzonatate 100 mg capsule 8- 00:00: 00 01-24 00:00 :00 No [id number] 200mg Take 2 capsules by mouth every 8 (eight) hours as needed for Cough. [facility] azithromyci n 500 mg tablet 7- 00:00: 00 01-24 00:00 :00 No [id number] 500mg Take 1 tablet by mouth in the morning. [facility] codeine-gua ifenesin (CHERATUSSI N AC) 10-100 mg/5 mL oral solution 7-25 00:00: 00 10-25 04:59 :00 No 5mL Take 5 mL by mouth every 6 (six) hours as needed for Cough for up to 7 days. Indication s: cough [facility] BUSPIRONE 10 mg tablet 5-20 00:00: 00 05-29 00:00 :00 No [id number] TAKE 1 TABLET BY MOUTH TWICE A DAY [facility] pantoprazol e 40 mg EC tablet 5-19 00:00: 00 03-09 00:00 :00 No [id number] pantoprazo le 40 mg tablet,del ayed release [facility] alendronate 70 mg tablet 5-17 00:00: 00 09-25 00:00 :00 No [id number] 70mg Take 1 tablet by mouth weekly. [facility] metFORMIN 500 mg tablet 4-25 00:00: 00 09-13 00:00 :00 No [id number] 500mg Take 1 tablet by mouth 2 (two) times daily with meals. [facility] atorvastati n 20 mg tablet 4-19 00:00: 00 05-29 00:00 :00 No [id number] 20mg Take 1 tablet by mouth at bedtime. [facility] methylPREDN ISolone (MEDROL, DIANE,) 4 mg tablets -16 00:00: 00 10-17 00:00 :00 No [id number] Take by mouth SEE-INSTRU CTIONS. follow package directions [facility] lisinopriL 5 mg tablet 04-25 00:00: 00 05-29 00:00 :00 No [id number] 5mg Take 1 tablet by mouth daily. [facility] naloxone (Narcan) 2 MG/2ML injection 2020-03 2 00:00: 00 03-10 05:59 :00 No [id number] .4mg Administer 0.4 mL (0.4 mg total) into affected nostril(s) if needed for opioid reversal. May repeat every 2-3 minutes as needed until medical assistance available. [facility] HYDROcodone -acetaminop hen (Mineola) 10-325 MG tablet 2020-03 2- 00:00: 00 05-09 05:59 :00 No [id number] 1{tbl} Take 1 tablet by mouth every 4 (four) hours if needed for severe pain (Pain). [facility] HYDROcodone -acetaminop hen (Mineola) 10-325 MG tablet 2020-03 00:00: 00 04-23 05:59 :00 No [id number] 1{tbl} Take 1 tablet by mouth every 4 (four) hours if needed for severe pain (Pain). [facility] HYDROcodone -acetaminop hen (Mineola) 10-325 MG tablet 2020-03 00:00: 00 04-10 05:59 :00 No [id number] 1{tbl} Take 1 tablet by mouth every 4 (four) hours if needed for severe pain (Pain). [facility] HYDROcodone -acetaminop hen (Mineola) 10-325 MG tablet 2020-03 00:00: 00 02-07 00:00 :00 No [id number] 1{tbl} Take 1 tablet by mouth every 4 (four) hours if needed for severe pain (Pain). [facility] HYDROcodone -acetaminop hen (Mineola) 10-325 MG tablet 2020-03 00:00: 00 03-22 05:59 :00 No [id number] 1{tbl} Take 1 tablet by mouth every 4 (four) hours if needed for severe pain (Pain). [facility] No known medications 2020-03 11:24: 46 No No known medication s [facility] pantoprazol e (ProtoNix) 40 MG EC tablet 2020-03 11:03: 30 Yes pantoprazo le 40 mg tablet,del ayed release [facility] fenofibrate micronized (Lofibra) 134 MG capsule 2020-03 11:03: 29 Yes fenofibrat e micronized 134 mg capsule [facility] lisinopril 20 MG tablet 2020-03 11:03: 29 Yes lisinopril 20 mg tablet TAKE 1 TABLET BY MOUTH EVERY DAY [facility] metFORMIN (Glucophage ) 500 MG tablet 2020-03 11:03: 29 Yes metformin 500 mg tablet [facility] atorvastati n (Lipitor) 20 MG tablet 2020-03 11:03: 28 Yes atorvastat in 20 mg tablet [facility] calcium carbonate (Os-Kosta) 1250 (500 Ca) MG tablet 2020-03 11:03: 28 Yes calcium carbonate 500 mg calcium (1,250 mg) tablet TAKE 1 TABLET BY MOUTH TWICE A DAY FOR 21 DAYS [facility] clopidogrel (Plavix) 75 MG tablet 2020-03 11:03: 28 Yes clopidogre l 75 mg tablet [facility] HYDROcodone -acetaminop hen (Mineola) 10-325 MG tablet 2020-03 0 00:00: 00 01-20 00:00 :00 No [id number] 1{tbl} Take 1 tablet by mouth every 4 (four) hours if needed for severe pain (Pain). [facility] HYDROcodone -acetaminop hen (Mineola) 10-325 MG tablet 12-12 00:00: 00 Yes TAKE 1 TABLET BY MOUTH EVERY 6 HOURS NEEDED FOR PAIN FOR 6 DAYS [facility] calcium carbonate 500 mg calcium (1,250 mg) tablet 12-12 00:00: 00 05-29 00:00 :00 No calcium carbonate 500 mg calcium (1,250 mg) tablet TAKE 1 TABLET BY MOUTH TWICE A DAY FOR 21 DAYS [facility] clopidogreL 75 mg tablet 11-29 00:00: 00 06-28 00:00 :00 No 75mg Take 75 mg by mouth daily. [facility] hydrocodone -acetaminop hen (NORCO) 5-325 mg tablet 12-13 00:00: 00 11-12 00:00 :00 No 1{tbl} Take 1 Tab by mouth 2 (two) times daily. Prn pain [facility] Immunizations Ordered Immunization Name Filled Immunization Name Date Status Comments Source Influenza, adjuvanted, trivalent, PF (FLUAD) 2024-01-09 00:00:00 Completed [facility] SARS-COV-2 COVID-19 VACCINE 12 YRS+, BIVALENT 0.5ML, IM, (MODERNA BOOSTER) 2022-05-11 00:00:00 Completed [facility] Pneumococcal 20 Conjugate, PCV20 (Prevnar 20) 2022-05-11 00:00:00 Completed [facility] SARS-COV-2 COVID-19 VACCINE 12 YRS+, BIVALENT 0.5ML, IM, (MODERNA BOOSTER) 2022-05-11 00:00:00 Completed [facility] Pneumococcal 20 Conjugate, PCV20 (Prevnar 20) 2022-05-11 00:00:00 Completed [facility] SARS-COV-2 COVID-19 VACCINE 12 YRS+, BIVALENT 0.5ML, IM, (MODERNA BOOSTER) 2022-05-11 00:00:00 Completed [facility] Pneumococcal 20 Conjugate, PCV20 (Prevnar 20) 2022-05-11 00:00:00 Completed [facility] SARS-COV-2 COVID-19 VACCINE 12 YRS+, BIVALENT 0.5ML, IM, (MODERNA BOOSTER) 2022-05-11 00:00:00 Completed [facility] Pneumococcal 20 Conjugate, PCV20 (Prevnar 20) 2022-05-11 00:00:00 Completed [facility] SARS-COV-2 COVID-19 VACCINE 12 YRS+, BIVALENT 0.5ML, IM, (MODERNA BOOSTER) 2022-05-11 00:00:00 Completed [facility] Pneumococcal 20 Conjugate, PCV20 (Prevnar 20) 2022-05-11 00:00:00 Completed [facility] SARS-COV-2 COVID-19 VACCINE 12 YRS+, BIVALENT 0.5ML, IM, (MODERNA BOOSTER) 2022-05-11 00:00:00 Completed [facility] Pneumococcal 20 Conjugate, PCV20 (Prevnar 20) 2022-05-11 00:00:00 Completed [facility] SARS-COV-2 COVID-19 VACCINE 12 YRS+, BIVALENT 0.5ML, IM, (MODERNA BOOSTER) 2022-05-11 00:00:00 Completed [facility] Pneumococcal 20 Conjugate, PCV20 (Prevnar 20) 2022-05-11 00:00:00 Completed [facility] SARS-COV-2 COVID-19 VACCINE 12 YRS+, BIVALENT 0.5ML, IM, (MODERNA BOOSTER) 2022-05-11 00:00:00 Completed [facility] Pneumococcal 20 Conjugate, PCV20 (Prevnar 20) 2022-05-11 00:00:00 Completed [facility] SARS-COV-2 COVID-19 VACCINE 12 YRS+, BIVALENT 0.5ML, IM, (MODERNA) 2022-05-11 00:00:00 Completed [facility] Pneumococcal 20 Conjugate, PCV20 (Prevnar 20) 2022-05-11 00:00:00 Completed [facility] SARS-COV-2 COVID-19 VACCINE 12 YRS+, BIVALENT 0.5ML, IM, (MODERNA) 2022-05-11 00:00:00 Completed [facility] Pneumococcal 20 Conjugate, PCV20 (Prevnar 20) 2022-05-11 00:00:00 Completed [facility] SARS-COV-2 COVID-19 VACCINE 12 YRS+, BIVALENT 0.5ML, IM, (MODERNA) 2022-05-11 00:00:00 Completed [facility] Pneumococcal 20 Conjugate, PCV20 (Prevnar 20) 2022-05-11 00:00:00 Completed [facility] SARS-COV-2 COVID-19 VACCINE 12 YRS+, BIVALENT 0.5ML, IM, (MODERNA-BLUE TOP) 2022-05-11 00:00:00 Completed [facility] Pneumococcal 20 Conjugate, PCV20 (Prevnar 20) 2022-05-11 00:00:00 Completed [facility] SARS-COV-2 COVID-19 VACCINE 12 YRS+, BIVALENT 0.5ML, IM, (MODERNA-BLUE TOP) 2022-05-11 00:00:00 Completed [facility] Pneumococcal 20 Conjugate, PCV20 (Prevnar 20) 2022-05-11 00:00:00 Completed [facility] SARS-COV-2 COVID-19 VACCINE 12 YRS+, BIVALENT 0.5ML, IM, (MODERNA-BLUE TOP) 2022-05-11 00:00:00 Completed [facility] Pneumococcal 20 Conjugate, PCV20 (Prevnar 20) 2022-05-11 00:00:00 Completed [facility] SARS-COV-2 COVID-19 VACCINE 12 YRS+, BIVALENT 0.5ML, IM, (MODERNA-BLUE TOP) 2022-05-11 00:00:00 Completed [facility] Pneumococcal 20 Conjugate, PCV20 (Prevnar 20) 2022-05-11 00:00:00 Completed [facility] SARS-COV-2 COVID-19 VACCINE 12 YRS+, BIVALENT 0.5ML, IM, (MODERNA-BLUE TOP) 2022-05-11 00:00:00 Completed [facility] Pneumococcal 20 Conjugate, PCV20 (Prevnar 20) 2022-05-11 00:00:00 Completed [facility] SARS-COV-2 COVID-19 VACCINE 12 YRS+, BIVALENT 0.5ML, IM, (MODERNA-BLUE TOP) 2022-05-11 00:00:00 Completed [facility] Pneumococcal 20 Conjugate, PCV20 (Prevnar 20) 2022-05-11 00:00:00 Completed [facility] SARS-COV-2 COVID-19 VACCINE 12 YRS+, BIVALENT 0.5ML, IM, (MODERNA-BLUE TOP) 2022-05-11 00:00:00 Completed [facility] Pneumococcal 20 Conjugate, PCV20 (Prevnar 20) 2022-05-11 00:00:00 Completed [facility] SARS-COV-2 COVID-19 VACCINE 12 YRS+, BIVALENT 0.5ML, IM, (MODERNA-BLUE TOP) 2022-05-11 00:00:00 Completed [facility] Pneumococcal 20 Conjugate, PCV20 (Prevnar 20) 2022-05-11 00:00:00 Completed [facility] SARS-COV-2 COVID-19 VACCINE 12 YRS+, BIVALENT 0.5ML, IM, (MODERNA-BLUE TOP) 2022-05-11 00:00:00 Completed [facility] Pneumococcal 20 Conjugate, PCV20 (Prevnar 20) 2022-05-11 00:00:00 Completed [facility] SARS-COV-2 COVID-19 VACCINE 12 YRS+, BIVALENT 0.5ML, IM, (MODERNA-BLUE TOP) 2022-05-11 00:00:00 Completed [facility] Pneumococcal 20 Conjugate, PCV20 (Prevnar 20) 2022-05-11 00:00:00 Completed [facility] SARS-COV-2 COVID-19 VACCINE 12 YRS+, BIVALENT 0.5ML, IM, (MODERNA-BLUE TOP) 2022-05-11 00:00:00 Completed [facility] Pneumococcal 20 Conjugate, PCV20 (Prevnar 20) 2022-05-11 00:00:00 Completed [facility] SARS-COV-2 COVID-19 VACCINE 12 YRS+, BIVALENT 0.5ML, IM, (MODERNA-BLUE TOP) 2022-05-11 00:00:00 Completed [facility] Pneumococcal 20 Conjugate, PCV20 (Prevnar 20) 2022-05-11 00:00:00 Completed [facility] SARS-COV-2 COVID-19 VACCINE 12 YRS+, BIVALENT 0.5ML, IM, (MODERNA-BLUE TOP) 2022-05-11 00:00:00 Completed [facility] Pneumococcal 20 Conjugate, PCV20 (Prevnar 20) 2022-05-11 00:00:00 Completed [facility] SARS-COV-2 COVID-19 VACCINE 12 YRS+, BIVALENT 0.5ML, IM, (MODERNA-BLUE TOP) 2022-05-11 00:00:00 Completed [facility] Pneumococcal 20 Conjugate, PCV20 (Prevnar 20) 2022-05-11 00:00:00 Completed [facility] SARS-COV-2 COVID-19 VACCINE 12 YRS+, BIVALENT 0.5ML, IM, (MODERNA-BLUE TOP) 2022-05-11 00:00:00 Completed [facility] Pneumococcal 20 Conjugate, PCV20 (Prevnar 20) 2022-05-11 00:00:00 Completed [facility] SARS-COV-2 COVID-19 VACCINE 12 YRS+, BIVALENT 0.5ML, IM, (MODERNA-BLUE TOP) 2022-05-11 00:00:00 Completed [facility] Pneumococcal 20 Conjugate, PCV20 (Prevnar 20) 2022-05-11 00:00:00 Completed [facility] Influenza High Dose 2022-01-04 00:00:00 Completed [facility] Influenza High Dose 2022-01-04 00:00:00 Completed [facility] Influenza High Dose 2022-01-04 00:00:00 Completed [facility] Influenza High Dose 2022-01-04 00:00:00 Completed [facility] Influenza High Dose 2022-01-04 00:00:00 Completed [facility] Influenza High Dose 2022-01-04 00:00:00 Completed [facility] Influenza High Dose 2022-01-04 00:00:00 Completed [facility] Influenza High Dose 2022-01-04 00:00:00 Completed [facility] Influenza High Dose 2022-01-04 00:00:00 Completed [facility] Influenza High Dose 2022-01-04 00:00:00 Completed [facility] Influenza High Dose 2022-01-04 00:00:00 Completed [facility] Influenza High Dose 2022-01-04 00:00:00 Completed [facility] Influenza High Dose 2022-01-04 00:00:00 Completed [facility] Influenza High Dose 2022-01-04 00:00:00 Completed [facility] Influenza High Dose 2022-01-04 00:00:00 Completed [facility] Influenza High Dose 2022-01-04 00:00:00 Completed [facility] Influenza High Dose 2022-01-04 00:00:00 Completed [facility] Influenza High Dose 2022-01-04 00:00:00 Completed [facility] Influenza High Dose 2022-01-04 00:00:00 Completed [facility] Influenza High Dose 2022-01-04 00:00:00 Completed [facility] Influenza High Dose 2022-01-04 00:00:00 Completed [facility] Influenza High Dose 2022-01-04 00:00:00 Completed [facility] Influenza High Dose 2022-01-04 00:00:00 Completed [facility] Influenza High Dose 2022-01-04 00:00:00 Completed [facility] Influenza High Dose 2022-01-04 00:00:00 Completed [facility] Influenza High Dose 2022-01-04 00:00:00 Completed [facility] Influenza High Dose 2022-01-04 00:00:00 Completed [facility] Influenza High Dose 2022-01-04 00:00:00 Completed [facility] Influenza High Dose 2022-01-04 00:00:00 Completed [facility] Influenza High Dose 2022-01-04 00:00:00 Completed [facility] Influenza High Dose 2022-01-04 00:00:00 Completed [facility] Influenza High Dose 2022-01-04 00:00:00 Completed [facility] Influenza High Dose 2022-01-04 00:00:00 Completed [facility] Influenza, High-Dose, Trivalent, PF (FLUZONE) 2022-01-04 00:00:00 Completed [facility] SARS-COV-2 COVID-19 MODERNA VACCINE 2021-02-04 00:00:00 Completed [facility] SARS-COV-2 COVID-19 MODERNA VACCINE 2021-02-04 00:00:00 Completed [facility] SARS-COV-2 COVID-19 MODERNA VACCINE 2021-02-04 00:00:00 Completed [facility] SARS-COV-2 COVID-19 MODERNA VACCINE 2021-02-04 00:00:00 Completed [facility] SARS-COV-2 COVID-19 MODERNA 12+ YRS VACCINE 2021-02-04 00:00:00 Completed [facility] SARS-COV-2 COVID-19 MODERNA 12+ YRS VACCINE 2021-02-04 00:00:00 Completed [facility] SARS-COV-2 COVID-19 MODERNA 12+ YRS VACCINE 2021-02-04 00:00:00 Completed [facility] SARS-COV-2 COVID-19 MODERNA 12+ YRS VACCINE 2021-02-04 00:00:00 Completed [facility] SARS-COV-2 COVID-19 MODERNA 12+ YRS VACCINE 2021-02-04 00:00:00 Completed [facility] SARS-COV-2 COVID-19 MODERNA 12+ YRS VACCINE 2021-02-04 00:00:00 Completed [facility] SARS-COV-2 COVID-19 MODERNA 12+ YRS VACCINE 2021-02-04 00:00:00 Completed [facility] SARS-COV-2 COVID-19 MODERNA 12+ YRS VACCINE 2021-02-04 00:00:00 Completed [facility] SARS-COV-2 COVID-19 MODERNA 12+ YRS VACCINE 2021-02-04 00:00:00 Completed [facility] SARS-COV-2 COVID-19 MODERNA 12+ YRS VACCINE 2021-02-04 00:00:00 Completed [facility] SARS-COV-2 COVID-19 MODERNA 12+ YRS VACCINE 2021-02-04 00:00:00 Completed [facility] SARS-COV-2 COVID-19 MODERNA 12+ YRS VACCINE 2021-02-04 00:00:00 Completed [facility] SARS-COV-2 COVID-19 MODERNA 12+ YRS VACCINE 2021-02-04 00:00:00 Completed [facility] SARS-COV-2 COVID-19 MODERNA 12+ YRS VACCINE 2021-02-04 00:00:00 Completed [facility] SARS-COV-2 COVID-19 MODERNA 12+ YRS VACCINE 2021-02-04 00:00:00 Completed [facility] SARS-COV-2 COVID-19 MODERNA 12+ YRS VACCINE 2021-02-04 00:00:00 Completed [facility] SARS-COV-2 COVID-19 MODERNA 12+ YRS VACCINE 2021-02-04 00:00:00 Completed [facility] SARS-COV-2 COVID-19 MODERNA 12+ YRS VACCINE 2021-02-04 00:00:00 Completed [facility] SARS-COV-2 COVID-19 MODERNA 12+ YRS VACCINE 2021-02-04 00:00:00 Completed [facility] SARS-COV-2 COVID-19 MODERNA 12+ YRS VACCINE 2021-02-04 00:00:00 Completed [facility] SARS-COV-2 COVID-19 MODERNA 12+ YRS VACCINE 2021-02-04 00:00:00 Completed [facility] SARS-COV-2 COVID-19 MODERNA 12+ YRS VACCINE 2021-02-04 00:00:00 Completed [facility] SARS-COV-2 COVID-19 MODERNA 12+ YRS VACCINE 2021-02-04 00:00:00 Completed [facility] SARS-COV-2 COVID-19 MODERNA 12+ YRS VACCINE 2021-02-04 00:00:00 Completed [facility] SARS-COV-2 COVID-19 MODERNA 12+ YRS VACCINE 2021-02-04 00:00:00 Completed [facility] SARS-COV-2 COVID-19 MODERNA 12+ YRS VACCINE 2021-02-04 00:00:00 Completed [facility] SARS-COV-2 COVID-19 MODERNA 12+ YRS VACCINE 2021-02-04 00:00:00 Completed [facility] SARS-COV-2 COVID-19 MODERNA 12+ YRS VACCINE 2021-02-04 00:00:00 Completed [facility] SARS-COV-2 COVID-19 MODERNA 12+ YRS VACCINE 2021-02-04 00:00:00 Completed [facility] SARS-COV-2 COVID-19 MODERNA 12+ YRS VACCINE 2021-02-04 00:00:00 Completed [facility] SARS-COV-2 COVID-19 MODERNA 12+ YRS VACCINE 2021-02-04 00:00:00 Completed [facility] SARS-COV-2 COVID-19 MODERNA 12+ YRS VACCINE 2021-02-04 00:00:00 Completed [facility] SARS-COV-2 COVID-19 MODERNA 12+ YRS VACCINE 2021-02-04 00:00:00 Completed [facility] SARS-COV-2 COVID-19 MODERNA 12+ YRS VACCINE 2021-02-04 00:00:00 Completed [facility] SARS-COV-2 COVID-19 MODERNA 12+ YRS VACCINE 2021-02-04 00:00:00 Completed [facility] SARS-COV-2 COVID-19 MODERNA 12+ YRS VACCINE 2021-02-04 00:00:00 Completed [facility] SARS-COV-2 COVID-19 MODERNA 12+ YRS VACCINE 2021-02-04 00:00:00 Completed [facility] SARS-COV-2 COVID-19 MODERNA 12+ YRS VACCINE 2021-02-04 00:00:00 Completed [facility] Influenza High Dose 2020-12-08 00:00:00 Completed [facility] Influenza High Dose 2020-12-08 00:00:00 Completed [facility] Influenza High Dose 2020-12-08 00:00:00 Completed [facility] Influenza High Dose 2020-12-08 00:00:00 Completed [facility] Influenza High Dose 2020-12-08 00:00:00 Completed [facility] Influenza High Dose 2020-12-08 00:00:00 Completed [facility] Influenza High Dose 2020-12-08 00:00:00 Completed [facility] Influenza High Dose 2020-12-08 00:00:00 Completed [facility] Influenza High Dose 2020-12-08 00:00:00 Completed [facility] Influenza High Dose 2020-12-08 00:00:00 Completed [facility] Influenza High Dose 2020-12-08 00:00:00 Completed [facility] Influenza High Dose 2020-12-08 00:00:00 Completed [facility] Influenza High Dose 2020-12-08 00:00:00 Completed [facility] Influenza High Dose 2020-12-08 00:00:00 Completed [facility] Influenza High Dose 2020-12-08 00:00:00 Completed [facility] Influenza High Dose 2020-12-08 00:00:00 Completed [facility] Influenza High Dose 2020-12-08 00:00:00 Completed [facility] Influenza High Dose 2020-12-08 00:00:00 Completed [facility] Influenza High Dose 2020-12-08 00:00:00 Completed [facility] Influenza High Dose 2020-12-08 00:00:00 Completed [facility] Influenza High Dose 2020-12-08 00:00:00 Completed [facility] Influenza High Dose 2020-12-08 00:00:00 Completed [facility] Influenza High Dose 2020-12-08 00:00:00 Completed [facility] Influenza High Dose 2020-12-08 00:00:00 Completed [facility] Influenza High Dose 2020-12-08 00:00:00 Completed [facility] Influenza High Dose 2020-12-08 00:00:00 Completed [facility] Influenza High Dose 2020-12-08 00:00:00 Completed [facility] Influenza High Dose 2020-12-08 00:00:00 Completed [facility] Influenza High Dose 2020-12-08 00:00:00 Completed [facility] Influenza High Dose 2020-12-08 00:00:00 Completed [facility] Influenza High Dose 2020-12-08 00:00:00 Completed [facility] Influenza High Dose 2020-12-08 00:00:00 Completed [facility] Influenza High Dose 2020-12-08 00:00:00 Completed [facility] Influenza High Dose 2020-12-08 00:00:00 Completed [facility] Influenza High Dose 2020-12-08 00:00:00 Completed [facility] Influenza High Dose 2020-12-08 00:00:00 Completed [facility] Influenza High Dose 2020-12-08 00:00:00 Completed [facility] Influenza High Dose 2020-12-08 00:00:00 Completed [facility] Influenza High Dose 2020-12-08 00:00:00 Completed [facility] Influenza High Dose 2020-12-08 00:00:00 Completed [facility] Influenza High Dose 2020-12-08 00:00:00 Completed [facility] Influenza, High-Dose, Trivalent, PF (FLUZONE) 2020-12-08 00:00:00 Completed [facility] SARS-COV-2 COVID-19 UNSPECIFIED VACCINE 2020-06-15 00:00:00 Completed [facility] SARS-COV-2 COVID-19 UNSPECIFIED VACCINE 2020-06-15 00:00:00 Completed [facility] SARS-COV-2 COVID-19 UNSPECIFIED VACCINE 2020-06-15 00:00:00 Completed [facility] SARS-COV-2 COVID-19 UNSPECIFIED VACCINE 2020-06-15 00:00:00 Completed [facility] SARS-COV-2 COVID-19 UNSPECIFIED VACCINE 2020-06-15 00:00:00 Completed [facility] SARS-COV-2 COVID-19 UNSPECIFIED VACCINE 2020-06-15 00:00:00 Completed [facility] SARS-COV-2 COVID-19 UNSPECIFIED VACCINE 2020-06-15 00:00:00 Completed [facility] SARS-COV-2 COVID-19 UNSPECIFIED VACCINE 2020-06-15 00:00:00 Completed [facility] SARS-COV-2 COVID-19 UNSPECIFIED VACCINE 2020-06-15 00:00:00 Completed [facility] SARS-COV-2 COVID-19 UNSPECIFIED VACCINE 2020-06-15 00:00:00 Completed [facility] SARS-COV-2 COVID-19 UNSPECIFIED VACCINE 2020-06-15 00:00:00 Completed [facility] SARS-COV-2 COVID-19 UNSPECIFIED VACCINE 2020-06-15 00:00:00 Completed [facility] SARS-COV-2 COVID-19 UNSPECIFIED VACCINE 2020-06-15 00:00:00 Completed [facility] SARS-COV-2 COVID-19 UNSPECIFIED VACCINE 2020-06-15 00:00:00 Completed [facility] SARS-COV-2 COVID-19 UNSPECIFIED VACCINE 2020-06-15 00:00:00 Completed [facility] SARS-COV-2 COVID-19 UNSPECIFIED VACCINE 2020-06-15 00:00:00 Completed [facility] SARS-COV-2 COVID-19 UNSPECIFIED VACCINE 2020-06-15 00:00:00 Completed [facility] SARS-COV-2 COVID-19 UNSPECIFIED VACCINE 2020-06-15 00:00:00 Completed [facility] SARS-COV-2 COVID-19 UNSPECIFIED VACCINE 2020-06-15 00:00:00 Completed [facility] SARS-COV-2 COVID-19 UNSPECIFIED VACCINE 2020-06-15 00:00:00 Completed [facility] SARS-COV-2 COVID-19 UNSPECIFIED VACCINE 2020-06-15 00:00:00 Completed [facility] SARS-COV-2 COVID-19 UNSPECIFIED VACCINE 2020-06-15 00:00:00 Completed [facility] SARS-COV-2 COVID-19 UNSPECIFIED VACCINE 2020-06-15 00:00:00 Completed [facility] SARS-COV-2 COVID-19 UNSPECIFIED VACCINE 2020-06-15 00:00:00 Completed [facility] SARS-COV-2 COVID-19 UNSPECIFIED VACCINE 2020-06-15 00:00:00 Completed [facility] SARS-COV-2 COVID-19 UNSPECIFIED VACCINE 2020-06-15 00:00:00 Completed [facility] SARS-COV-2 COVID-19 UNSPECIFIED VACCINE 2020-06-15 00:00:00 Completed [facility] SARS-COV-2 COVID-19 UNSPECIFIED VACCINE 2020-06-15 00:00:00 Completed [facility] SARS-COV-2 COVID-19 UNSPECIFIED VACCINE 2020-06-15 00:00:00 Completed [facility] SARS-COV-2 COVID-19 UNSPECIFIED VACCINE 2020-06-15 00:00:00 Completed [facility] SARS-COV-2 COVID-19 UNSPECIFIED VACCINE 2020-06-15 00:00:00 Completed [facility] SARS-COV-2 COVID-19 UNSPECIFIED VACCINE 2020-06-15 00:00:00 Completed [facility] SARS-COV-2 COVID-19 UNSPECIFIED VACCINE 2020-06-15 00:00:00 Completed [facility] SARS-COV-2 COVID-19 UNSPECIFIED VACCINE 2020-06-15 00:00:00 Completed [facility] SARS-COV-2 COVID-19 UNSPECIFIED VACCINE 2020-06-15 00:00:00 Completed [facility] SARS-COV-2 COVID-19 UNSPECIFIED VACCINE 2020-06-15 00:00:00 Completed [facility] SARS-COV-2 COVID-19 UNSPECIFIED VACCINE 2020-06-15 00:00:00 Completed [facility] SARS-COV-2 COVID-19 UNSPECIFIED VACCINE 2020-06-15 00:00:00 Completed [facility] SARS-COV-2 COVID-19 UNSPECIFIED VACCINE 2020-06-15 00:00:00 Completed [facility] SARS-COV-2 COVID-19 UNSPECIFIED VACCINE 2020-06-15 00:00:00 Completed [facility] SARS-COV-2 COVID-19 UNSPECIFIED VACCINE 2020-06-15 00:00:00 Completed [facility] SARS-COV-2 COVID-19 UNSPECIFIED VACCINE 2020-06-15 00:00:00 Completed [facility] SARS-COV-2 COVID-19 UNSPECIFIED VACCINE 2020-05-25 00:00:00 Completed [facility] SARS-COV-2 COVID-19 UNSPECIFIED VACCINE 2020-05-25 00:00:00 Completed [facility] SARS-COV-2 COVID-19 UNSPECIFIED VACCINE 2020-05-25 00:00:00 Completed [facility] SARS-COV-2 COVID-19 UNSPECIFIED VACCINE 2020-05-25 00:00:00 Completed [facility] SARS-COV-2 COVID-19 UNSPECIFIED VACCINE 2020-05-25 00:00:00 Completed [facility] SARS-COV-2 COVID-19 UNSPECIFIED VACCINE 2020-05-25 00:00:00 Completed [facility] SARS-COV-2 COVID-19 UNSPECIFIED VACCINE 2020-05-25 00:00:00 Completed [facility] SARS-COV-2 COVID-19 UNSPECIFIED VACCINE 2020-05-25 00:00:00 Completed [facility] SARS-COV-2 COVID-19 UNSPECIFIED VACCINE 2020-05-25 00:00:00 Completed [facility] SARS-COV-2 COVID-19 UNSPECIFIED VACCINE 2020-05-25 00:00:00 Completed [facility] SARS-COV-2 COVID-19 UNSPECIFIED VACCINE 2020-05-25 00:00:00 Completed [facility] SARS-COV-2 COVID-19 UNSPECIFIED VACCINE 2020-05-25 00:00:00 Completed [facility] SARS-COV-2 COVID-19 UNSPECIFIED VACCINE 2020-05-25 00:00:00 Completed [facility] SARS-COV-2 COVID-19 UNSPECIFIED VACCINE 2020-05-25 00:00:00 Completed [facility] SARS-COV-2 COVID-19 UNSPECIFIED VACCINE 2020-05-25 00:00:00 Completed [facility] SARS-COV-2 COVID-19 UNSPECIFIED VACCINE 2020-05-25 00:00:00 Completed [facility] SARS-COV-2 COVID-19 UNSPECIFIED VACCINE 2020-05-25 00:00:00 Completed [facility] SARS-COV-2 COVID-19 UNSPECIFIED VACCINE 2020-05-25 00:00:00 Completed [facility] SARS-COV-2 COVID-19 UNSPECIFIED VACCINE 2020-05-25 00:00:00 Completed [facility] SARS-COV-2 COVID-19 UNSPECIFIED VACCINE 2020-05-25 00:00:00 Completed [facility] SARS-COV-2 COVID-19 UNSPECIFIED VACCINE 2020-05-25 00:00:00 Completed [facility] SARS-COV-2 COVID-19 UNSPECIFIED VACCINE 2020-05-25 00:00:00 Completed [facility] SARS-COV-2 COVID-19 UNSPECIFIED VACCINE 2020-05-25 00:00:00 Completed [facility] SARS-COV-2 COVID-19 UNSPECIFIED VACCINE 2020-05-25 00:00:00 Completed [facility] SARS-COV-2 COVID-19 UNSPECIFIED VACCINE 2020-05-25 00:00:00 Completed [facility] SARS-COV-2 COVID-19 UNSPECIFIED VACCINE 2020-05-25 00:00:00 Completed [facility] SARS-COV-2 COVID-19 UNSPECIFIED VACCINE 2020-05-25 00:00:00 Completed [facility] SARS-COV-2 COVID-19 UNSPECIFIED VACCINE 2020-05-25 00:00:00 Completed [facility] SARS-COV-2 COVID-19 UNSPECIFIED VACCINE 2020-05-25 00:00:00 Completed [facility] SARS-COV-2 COVID-19 UNSPECIFIED VACCINE 2020-05-25 00:00:00 Completed [facility] SARS-COV-2 COVID-19 UNSPECIFIED VACCINE 2020-05-25 00:00:00 Completed [facility] SARS-COV-2 COVID-19 UNSPECIFIED VACCINE 2020-05-25 00:00:00 Completed [facility] SARS-COV-2 COVID-19 UNSPECIFIED VACCINE 2020-05-25 00:00:00 Completed [facility] SARS-COV-2 COVID-19 UNSPECIFIED VACCINE 2020-05-25 00:00:00 Completed [facility] SARS-COV-2 COVID-19 UNSPECIFIED VACCINE 2020-05-25 00:00:00 Completed [facility] SARS-COV-2 COVID-19 UNSPECIFIED VACCINE 2020-05-25 00:00:00 Completed [facility] SARS-COV-2 COVID-19 UNSPECIFIED VACCINE 2020-05-25 00:00:00 Completed [facility] SARS-COV-2 COVID-19 UNSPECIFIED VACCINE 2020-05-25 00:00:00 Completed [facility] SARS-COV-2 COVID-19 UNSPECIFIED VACCINE 2020-05-25 00:00:00 Completed [facility] SARS-COV-2 COVID-19 UNSPECIFIED VACCINE 2020-05-25 00:00:00 Completed [facility] SARS-COV-2 COVID-19 UNSPECIFIED VACCINE 2020-05-25 00:00:00 Completed [facility] SARS-COV-2 COVID-19 UNSPECIFIED VACCINE 2020-05-25 00:00:00 Completed Pneumococcal Polysaccharide, PPSV23 (PNEUMOVAX) 2018-10-02 00:00:00 Completed [facility] Pneumococcal Polysaccharide, PPSV23 (PNEUMOVAX) 2018-10-02 00:00:00 Completed [facility] Pneumococcal Polysaccharide, PPSV23 (PNEUMOVAX) 2018-10-02 00:00:00 Completed [facility] Pneumococcal Polysaccharide, PPSV23 (PNEUMOVAX) 2018-10-02 00:00:00 Completed [facility] Pneumococcal Polysaccharide, PPSV23 (PNEUMOVAX) 2018-10-02 00:00:00 Completed [facility] Pneumococcal Polysaccharide, PPSV23 (PNEUMOVAX) 2018-10-02 00:00:00 Completed [facility] Pneumococcal Polysaccharide, PPSV23 (PNEUMOVAX) 2018-10-02 00:00:00 Completed [facility] Pneumococcal Polysaccharide, PPSV23 (PNEUMOVAX) 2018-10-02 00:00:00 Completed [facility] Pneumococcal Polysaccharide, PPSV23 (PNEUMOVAX) 2018-10-02 00:00:00 Completed [facility] Pneumococcal Polysaccharide, PPSV23 (PNEUMOVAX) 2018-10-02 00:00:00 Completed [facility] Pneumococcal Polysaccharide, PPSV23 (PNEUMOVAX) 2018-10-02 00:00:00 Completed [facility] Pneumococcal Polysaccharide, PPSV23 (PNEUMOVAX) 2018-10-02 00:00:00 Completed [facility] Pneumococcal Polysaccharide, PPSV23 (PNEUMOVAX) 2018-10-02 00:00:00 Completed [facility] Pneumococcal Polysaccharide, PPSV23 (PNEUMOVAX) 2018-10-02 00:00:00 Completed [facility] Pneumococcal Polysaccharide, PPSV23 (PNEUMOVAX) 2018-10-02 00:00:00 Completed [facility] Pneumococcal Polysaccharide, PPSV23 (PNEUMOVAX) 2018-10-02 00:00:00 Completed [facility] Pneumococcal Polysaccharide, PPSV23 (PNEUMOVAX) 2018-10-02 00:00:00 Completed [facility] Pneumococcal Polysaccharide, PPSV23 (PNEUMOVAX) 2018-10-02 00:00:00 Completed [facility] Pneumococcal Polysaccharide, PPSV23 (PNEUMOVAX) 2018-10-02 00:00:00 Completed [facility] Pneumococcal Polysaccharide, PPSV23 (PNEUMOVAX) 2018-10-02 00:00:00 Completed [facility] Pneumococcal Polysaccharide, PPSV23 (PNEUMOVAX) 2018-10-02 00:00:00 Completed [facility] Pneumococcal Polysaccharide, PPSV23 (PNEUMOVAX) 2018-10-02 00:00:00 Completed [facility] Pneumococcal Polysaccharide, PPSV23 (PNEUMOVAX) 2018-10-02 00:00:00 Completed [facility] Pneumococcal Polysaccharide, PPSV23 (PNEUMOVAX) 2018-10-02 00:00:00 Completed [facility] Pneumococcal Polysaccharide, PPSV23 (PNEUMOVAX) 2018-10-02 00:00:00 Completed [facility] Pneumococcal Polysaccharide, PPSV23 (PNEUMOVAX) 2018-10-02 00:00:00 Completed [facility] Pneumococcal Polysaccharide, PPSV23 (PNEUMOVAX) 2018-10-02 00:00:00 Completed [facility] Pneumococcal Polysaccharide, PPSV23 (PNEUMOVAX) 2018-10-02 00:00:00 Completed [facility] Pneumococcal Polysaccharide, PPSV23 (PNEUMOVAX) 2018-10-02 00:00:00 Completed [facility] Pneumococcal Polysaccharide, PPSV23 (PNEUMOVAX) 2018-10-02 00:00:00 Completed [facility] Pneumococcal Polysaccharide, PPSV23 (PNEUMOVAX) 2018-10-02 00:00:00 Completed [facility] Pneumococcal Polysaccharide, PPSV23 (PNEUMOVAX) 2018-10-02 00:00:00 Completed [facility] Pneumococcal Polysaccharide, PPSV23 (PNEUMOVAX) 2018-10-02 00:00:00 Completed [facility] Pneumococcal Polysaccharide, PPSV23 (PNEUMOVAX) 2018-10-02 00:00:00 Completed [facility] Pneumococcal Polysaccharide, PPSV23 (PNEUMOVAX) 2018-10-02 00:00:00 Completed [facility] Pneumococcal Polysaccharide, PPSV23 (PNEUMOVAX) 2018-10-02 00:00:00 Completed [facility] Pneumococcal Polysaccharide, PPSV23 (PNEUMOVAX) 2018-10-02 00:00:00 Completed [facility] Pneumococcal Polysaccharide, PPSV23 (PNEUMOVAX) 2018-10-02 00:00:00 Completed [facility] Pneumococcal Polysaccharide, PPSV23 (PNEUMOVAX) 2018-10-02 00:00:00 Completed [facility] Pneumococcal Polysaccharide, PPSV23 (PNEUMOVAX) 2018-10-02 00:00:00 Completed [facility] Pneumococcal Polysaccharide, PPSV23 (PNEUMOVAX) 2018-10-02 00:00:00 Completed [facility] Pneumococcal Polysaccharide, PPSV23 (PNEUMOVAX) 2018-10-02 00:00:00 Completed [facility] DTAP 2016-02-02 00:00:00 Completed [facility] DTAP 2016-02-02 00:00:00 Completed [facility] DTAP 2016-02-02 00:00:00 Completed [facility] DTAP 2016-02-02 00:00:00 Completed [facility] DTAP 2016-02-02 00:00:00 Completed [facility] DTAP 2016-02-02 00:00:00 Completed [facility] DTAP 2016-02-02 00:00:00 Completed [facility] DTAP 2016-02-02 00:00:00 Completed [facility] DTAP 2016-02-02 00:00:00 Completed [facility] DTAP 2016-02-02 00:00:00 Completed [facility] DTAP 2016-02-02 00:00:00 Completed [facility] DTAP 2016-02-02 00:00:00 Completed [facility] DTAP 2016-02-02 00:00:00 Completed [facility] DTAP 2016-02-02 00:00:00 Completed [facility] DTAP 2016-02-02 00:00:00 Completed [facility] DTAP 2016-02-02 00:00:00 Completed [facility] DTAP 2016-02-02 00:00:00 Completed [facility] DTAP 2016-02-02 00:00:00 Completed [facility] DTAP 2016-02-02 00:00:00 Completed [facility] DTAP 2016-02-02 00:00:00 Completed [facility] DTAP 2016-02-02 00:00:00 Completed [facility] DTAP 2016-02-02 00:00:00 Completed [facility] DTAP 2016-02-02 00:00:00 Completed [facility] DTAP 2016-02-02 00:00:00 Completed [facility] DTAP 2016-02-02 00:00:00 Completed [facility] DTAP 2016-02-02 00:00:00 Completed [facility] DTAP 2016-02-02 00:00:00 Completed [facility] DTAP 2016-02-02 00:00:00 Completed [facility] DTAP 2016-02-02 00:00:00 Completed [facility] DTAP 2016-02-02 00:00:00 Completed [facility] DTAP 2016-02-02 00:00:00 Completed [facility] DTAP 2016-02-02 00:00:00 Completed [facility] DTAP 2016-02-02 00:00:00 Completed [facility] DTAP 2016-02-02 00:00:00 Completed [facility] DTAP 2016-02-02 00:00:00 Completed [facility] DTAP 2016-02-02 00:00:00 Completed [facility] DTAP 2016-02-02 00:00:00 Completed [facility] DTAP 2016-02-02 00:00:00 Completed [facility] DTAP 2016-02-02 00:00:00 Completed [facility] DTAP 2016-02-02 00:00:00 Completed [facility] DTAP 2016-02-02 00:00:00 Completed [facility] DTAP 2016-02-02 00:00:00 Completed [facility] Influenza High Dose Unknown Completed [facility] Pneumococcal Polysaccharide, PPSV23 (PNEUMOVAX) Unknown Completed [facility] DTAP Unknown Completed [facility] SARS-COV-2 COVID-19 MODERNA 12+ YRS VACCINE Unknown Completed [facility] SARS-COV-2 COVID-19 UNSPECIFIED VACCINE Unknown Completed [facility] SARS-COV-2 COVID-19 VACCINE 12 YRS+, BIVALENT 0.5ML, IM, (MODERNA-BLUE TOP) Unknown Completed [facility] Pneumococcal 20 Conjugate, PCV20 (Prevnar 20) Unknown Completed [facility] Influenza High Dose Unknown Completed [facility] Pneumococcal Polysaccharide, PPSV23 (PNEUMOVAX) Unknown Completed [facility] DTAP Unknown Completed [facility] SARS-COV-2 COVID-19 MODERNA 12+ YRS VACCINE Unknown Completed [facility] SARS-COV-2 COVID-19 UNSPECIFIED VACCINE Unknown Completed [facility] Influenza High Dose Unknown Completed [facility] Pneumococcal Polysaccharide, PPSV23 (PNEUMOVAX) Unknown Completed [facility] DTAP Unknown Completed [facility] SARS-COV-2 COVID-19 MODERNA 12+ YRS VACCINE Unknown Completed [facility] SARS-COV-2 COVID-19 UNSPECIFIED VACCINE Unknown Completed [facility] Influenza High Dose Unknown Completed [facility] Pneumococcal Polysaccharide, PPSV23 (PNEUMOVAX) Unknown Completed [facility] DTAP Unknown Completed [facility] SARS-COV-2 COVID-19 MODERNA 12+ YRS VACCINE Unknown Completed [facility] SARS-COV-2 COVID-19 UNSPECIFIED VACCINE Unknown Completed [facility] Influenza High Dose Unknown Completed [facility] Pneumococcal Polysaccharide, PPSV23 (PNEUMOVAX) Unknown Completed [facility] DTAP Unknown Completed [facility] SARS-COV-2 COVID-19 MODERNA 12+ YRS VACCINE Unknown Completed [facility] SARS-COV-2 COVID-19 UNSPECIFIED VACCINE Unknown Completed [facility] Influenza High Dose Unknown Completed [facility] Pneumococcal Polysaccharide, PPSV23 (PNEUMOVAX) Unknown Completed [facility] DTAP Unknown Completed [facility] SARS-COV-2 COVID-19 MODERNA 12+ YRS VACCINE Unknown Completed [facility] SARS-COV-2 COVID-19 UNSPECIFIED VACCINE Unknown Completed [facility] Influenza High Dose Unknown Completed [facility] Pneumococcal Polysaccharide, PPSV23 (PNEUMOVAX) Unknown Completed [facility] DTAP Unknown Completed [facility] SARS-COV-2 COVID-19 MODERNA 12+ YRS VACCINE Unknown Completed [facility] SARS-COV-2 COVID-19 UNSPECIFIED VACCINE Unknown Completed [facility] SARS-COV-2 COVID-19 VACCINE 12 YRS+, BIVALENT 0.5ML, IM, (MODERNA-BLUE TOP) Unknown Completed [facility] Pneumococcal 20 Conjugate, PCV20 (Prevnar 20) Unknown Completed [facility] Influenza High Dose Unknown Completed [facility] Pneumococcal Polysaccharide, PPSV23 (PNEUMOVAX) Unknown Completed [facility] DTAP Unknown Completed [facility] SARS-COV-2 COVID-19 MODERNA 12+ YRS VACCINE Unknown Completed [facility] SARS-COV-2 COVID-19 UNSPECIFIED VACCINE Unknown Completed [facility] SARS-COV-2 COVID-19 VACCINE 12 YRS+, BIVALENT 0.5ML, IM, (MODERNA-BLUE TOP) Unknown Completed [facility] Pneumococcal 20 Conjugate, PCV20 (Prevnar 20) Unknown Completed [facility] Influenza High Dose Unknown Completed [facility] Pneumococcal Polysaccharide, PPSV23 (PNEUMOVAX) Unknown Completed [facility] DTAP Unknown Completed [facility] SARS-COV-2 COVID-19 MODERNA 12+ YRS VACCINE Unknown Completed [facility] SARS-COV-2 COVID-19 UNSPECIFIED VACCINE Unknown Completed [facility] SARS-COV-2 COVID-19 VACCINE 12 YRS+, BIVALENT 0.5ML, IM, (MODERNA-BLUE TOP) Unknown Completed [facility] Pneumococcal 20 Conjugate, PCV20 (Prevnar 20) Unknown Completed [facility] Influenza High Dose Unknown Completed [facility] Pneumococcal Polysaccharide, PPSV23 (PNEUMOVAX) Unknown Completed [facility] DTAP Unknown Completed [facility] SARS-COV-2 COVID-19 MODERNA 12+ YRS VACCINE Unknown Completed [facility] SARS-COV-2 COVID-19 UNSPECIFIED VACCINE Unknown Completed [facility] SARS-COV-2 COVID-19 VACCINE 12 YRS+, BIVALENT 0.5ML, IM, (MODERNA-BLUE TOP) Unknown Completed [facility] Pneumococcal 20 Conjugate, PCV20 (Prevnar 20) Unknown Completed [facility] Pneumococcal Polysaccharide, PPSV23 (PNEUMOVAX) Unknown Completed [facility] DTAP Unknown Completed [facility] SARS-COV-2 COVID-19 MODERNA 12+ YRS VACCINE Unknown Completed [facility] SARS-COV-2 COVID-19 VACCINE 12 YRS+, BIVALENT 0.5ML, IM, (MODERNA-BLUE TOP) Unknown Completed [facility] Pneumococcal 20 Conjugate, PCV20 (Prevnar 20) Unknown Completed [facility] Influenza High Dose Unknown Completed [facility] SARS-COV-2 COVID-19 UNSPECIFIED VACCINE Unknown Completed [facility] Influenza High Dose Unknown Completed [facility] Pneumococcal Polysaccharide, PPSV23 (PNEUMOVAX) Unknown Completed [facility] DTAP Unknown Completed [facility] SARS-COV-2 COVID-19 MODERNA 12+ YRS VACCINE Unknown Completed [facility] SARS-COV-2 COVID-19 UNSPECIFIED VACCINE Unknown Completed [facility] SARS-COV-2 COVID-19 VACCINE 12 YRS+, BIVALENT 0.5ML, IM, (MODERNA-BLUE TOP) Unknown Completed [facility] Pneumococcal 20 Conjugate, PCV20 (Prevnar 20) Unknown Completed [facility] Influenza High Dose Unknown Completed [facility] Pneumococcal Polysaccharide, PPSV23 (PNEUMOVAX) Unknown Completed [facility] DTAP Unknown Completed [facility] SARS-COV-2 COVID-19 MODERNA 12+ YRS VACCINE Unknown Completed [facility] SARS-COV-2 COVID-19 UNSPECIFIED VACCINE Unknown Completed [facility] SARS-COV-2 COVID-19 VACCINE 12 YRS+, BIVALENT 0.5ML, IM, (MODERNA-BLUE TOP) Unknown Completed [facility] Pneumococcal 20 Conjugate, PCV20 (Prevnar 20) Unknown Completed [facility] Pneumococcal Polysaccharide, PPSV23 (PNEUMOVAX) Unknown Completed [facility] DTAP Unknown Completed [facility] SARS-COV-2 COVID-19 MODERNA 12+ YRS VACCINE Unknown Completed [facility] SARS-COV-2 COVID-19 VACCINE 12 YRS+, BIVALENT 0.5ML, IM, (MODERNA-BLUE TOP) Unknown Completed [facility] Pneumococcal 20 Conjugate, PCV20 (Prevnar 20) Unknown Completed [facility] Influenza High Dose Unknown Completed [facility] SARS-COV-2 COVID-19 UNSPECIFIED VACCINE Unknown Completed [facility] Influenza High Dose Unknown Completed [facility] Pneumococcal Polysaccharide, PPSV23 (PNEUMOVAX) Unknown Completed [facility] DTAP Unknown Completed [facility] SARS-COV-2 COVID-19 MODERNA 12+ YRS VACCINE Unknown Completed [facility] SARS-COV-2 COVID-19 UNSPECIFIED VACCINE Unknown Completed [facility] SARS-COV-2 COVID-19 VACCINE 12 YRS+, BIVALENT 0.5ML, IM, (MODERNA-BLUE TOP) Unknown Completed [facility] Pneumococcal 20 Conjugate, PCV20 (Prevnar 20) Unknown Completed [facility] Influenza High Dose Unknown Completed [facility] Pneumococcal Polysaccharide, PPSV23 (PNEUMOVAX) Unknown Completed [facility] DTAP Unknown Completed [facility] SARS-COV-2 COVID-19 MODERNA 12+ YRS VACCINE Unknown Completed [facility] SARS-COV-2 COVID-19 UNSPECIFIED VACCINE Unknown Completed [facility] SARS-COV-2 COVID-19 VACCINE 12 YRS+, BIVALENT 0.5ML, IM, (MODERNA-BLUE TOP) Unknown Completed [facility] Pneumococcal 20 Conjugate, PCV20 (Prevnar 20) Unknown Completed [facility] Pneumococcal Polysaccharide, PPSV23 (PNEUMOVAX) Unknown Completed [facility] DTAP Unknown Completed [facility] SARS-COV-2 COVID-19 MODERNA 12+ YRS VACCINE Unknown Completed [facility] SARS-COV-2 COVID-19 VACCINE 12 YRS+, BIVALENT 0.5ML, IM, (MODERNA-BLUE TOP) Unknown Completed [facility] Pneumococcal 20 Conjugate, PCV20 (Prevnar 20) Unknown Completed [facility] Influenza High Dose Unknown Completed [facility] SARS-COV-2 COVID-19 UNSPECIFIED VACCINE Unknown Completed [facility] Influenza High Dose Unknown Completed [facility] Pneumococcal Polysaccharide, PPSV23 (PNEUMOVAX) Unknown Completed [facility] DTAP Unknown Completed [facility] SARS-COV-2 COVID-19 MODERNA 12+ YRS VACCINE Unknown Completed [facility] SARS-COV-2 COVID-19 UNSPECIFIED VACCINE Unknown Completed [facility] SARS-COV-2 COVID-19 VACCINE 12 YRS+, BIVALENT 0.5ML, IM, (MODERNA-BLUE TOP) Unknown Completed [facility] Pneumococcal 20 Conjugate, PCV20 (Prevnar 20) Unknown Completed [facility] Influenza High Dose Unknown Completed [facility] Pneumococcal Polysaccharide, PPSV23 (PNEUMOVAX) Unknown Completed [facility] DTAP Unknown Completed [facility] SARS-COV-2 COVID-19 MODERNA 12+ YRS VACCINE Unknown Completed [facility] SARS-COV-2 COVID-19 UNSPECIFIED VACCINE Unknown Completed [facility] SARS-COV-2 COVID-19 VACCINE 12 YRS+, BIVALENT 0.5ML, IM, (MODERNA-BLUE TOP) Unknown Completed [facility] Pneumococcal 20 Conjugate, PCV20 (Prevnar 20) Unknown Completed [facility] Influenza High Dose Unknown Completed [facility] Pneumococcal Polysaccharide, PPSV23 (PNEUMOVAX) Unknown Completed [facility] DTAP Unknown Completed [facility] SARS-COV-2 COVID-19 MODERNA 12+ YRS VACCINE Unknown Completed [facility] SARS-COV-2 COVID-19 UNSPECIFIED VACCINE Unknown Completed [facility] SARS-COV-2 COVID-19 VACCINE 12 YRS+, BIVALENT 0.5ML, IM, (MODERNA-BLUE TOP) Unknown Completed [facility] Pneumococcal 20 Conjugate, PCV20 (Prevnar 20) Unknown Completed [facility] Pneumococcal Polysaccharide, PPSV23 (PNEUMOVAX) Unknown Completed [facility] DTAP Unknown Completed [facility] SARS-COV-2 COVID-19 MODERNA 12+ YRS VACCINE Unknown Completed [facility] SARS-COV-2 COVID-19 VACCINE 12 YRS+, BIVALENT 0.5ML, IM, (MODERNA-BLUE TOP) Unknown Completed [facility] Pneumococcal 20 Conjugate, PCV20 (Prevnar 20) Unknown Completed [facility] Influenza High Dose Unknown Completed [facility] SARS-COV-2 COVID-19 UNSPECIFIED VACCINE Unknown Completed [facility] Influenza High Dose Unknown Completed [facility] Pneumococcal Polysaccharide, PPSV23 (PNEUMOVAX) Unknown Completed [facility] DTAP Unknown Completed [facility] SARS-COV-2 COVID-19 MODERNA 12+ YRS VACCINE Unknown Completed [facility] SARS-COV-2 COVID-19 UNSPECIFIED VACCINE Unknown Completed [facility] SARS-COV-2 COVID-19 VACCINE 12 YRS+, BIVALENT 0.5ML, IM, (MODERNA-BLUE TOP) Unknown Completed [facility] Pneumococcal 20 Conjugate, PCV20 (Prevnar 20) Unknown Completed [facility] Influenza High Dose Unknown Completed [facility] Pneumococcal Polysaccharide, PPSV23 (PNEUMOVAX) Unknown Completed [facility] DTAP Unknown Completed [facility] SARS-COV-2 COVID-19 MODERNA 12+ YRS VACCINE Unknown Completed [facility] SARS-COV-2 COVID-19 UNSPECIFIED VACCINE Unknown Completed [facility] SARS-COV-2 COVID-19 VACCINE 12 YRS+, BIVALENT 0.5ML, IM, (MODERNA-BLUE TOP) Unknown Completed [facility] Pneumococcal 20 Conjugate, PCV20 (Prevnar 20) Unknown Completed [facility] Influenza High Dose Unknown Completed [facility] Pneumococcal Polysaccharide, PPSV23 (PNEUMOVAX) Unknown Completed [facility] DTAP Unknown Completed [facility] SARS-COV-2 COVID-19 MODERNA 12+ YRS VACCINE Unknown Completed [facility] SARS-COV-2 COVID-19 UNSPECIFIED VACCINE Unknown Completed [facility] SARS-COV-2 COVID-19 VACCINE 12 YRS+, BIVALENT 0.5ML, IM, (MODERNA-BLUE TOP) Unknown Completed [facility] Pneumococcal 20 Conjugate, PCV20 (Prevnar 20) Unknown Completed [facility] Influenza High Dose Unknown Completed [facility] Pneumococcal Polysaccharide, PPSV23 (PNEUMOVAX) Unknown Completed [facility] DTAP Unknown Completed [facility] SARS-COV-2 COVID-19 MODERNA 12+ YRS VACCINE Unknown Completed [facility] SARS-COV-2 COVID-19 UNSPECIFIED VACCINE Unknown Completed [facility] SARS-COV-2 COVID-19 VACCINE 12 YRS+, BIVALENT 0.5ML, IM, (MODERNA-BLUE TOP) Unknown Completed [facility] Pneumococcal 20 Conjugate, PCV20 (Prevnar 20) Unknown Completed [facility] Vital Signs Vital Name Observation Time Observation Value Comments S ource BMI 2024-06-23 13:11:00 21.22 kg/m2 [facility] Oxygen saturation in Arterial blood by Pulse oximetry 2024-06-23 13:11:00 96 /min [facility] Systolic blood pressure 2024-06-23 13:11:00 118 mm[Hg] [facility] Diastolic blood pressure 2024-06-23 13:11:00 74 mm[Hg] [facility] Heart rate 2024-06-23 13:11:00 98 /min [facility] Respiratory rate 2024-06-23 13:11:00 14 /min [facility] Body height 2024-06-23 13:11:00 154.9 cm per pt [facility] Body weight 2024-06-23 13:11:00 50.945 kg [facility] Systolic blood pressure 2024-05-05 20:47:00 118 mm[Hg] [facility] Diastolic blood pressure 2024-05-05 20:47:00 67 mm[Hg] [facility] Heart rate 2024-05-05 20:47:00 94 /min [facility] Body height 2024-05-05 20:47:00 154.9 cm [facility] Body weight 2024-05-05 20:47:00 52.617 kg [facility] BMI 2024-05-05 20:47:00 21.92 kg/m2 [facility] Systolic blood pressure 2024-03-25 14:05:00 126 mm[Hg] [facility] Diastolic blood pressure 2024-03-25 14:05:00 75 mm[Hg] [facility] Heart rate 2024-03-25 14:05:00 105 /min [facility] Respiratory rate 2024-03-25 14:05:00 16 /min [facility] Body height 2024-03-25 14:05:00 152.4 cm per pt [facility] Body weight 2024-03-25 14:05:00 51.398 kg [facility] BMI 2024-03-25 14:05:00 22.13 kg/m2 [facility] Oxygen saturation in Arterial blood by Pulse oximetry 2024-03-25 14:05:00 96 /min [facility] Systolic blood pressure 2024-02-12 14:26:00 114 mm[Hg] [facility] Diastolic blood pressure 2024-02-12 14:26:00 70 mm[Hg] [facility] Heart rate 2024-02-12 14:26:00 90 /min [facility] Respiratory rate 2024-02-12 14:26:00 14 /min [facility] Body height 2024-02-12 14:26:00 152.4 cm [facility] Body weight 2024-02-12 14:26:00 51.738 kg [facility] BMI 2024-02-12 14:26:00 22.28 kg/m2 [facility] Oxygen saturation in Arterial blood by Pulse oximetry 2024-02-12 14:26:00 96 /min [facility] Systolic blood pressure 2024-01-09 19:41:00 130 mm[Hg] [facility] Diastolic blood pressure 2024-01-09 19:41:00 81 mm[Hg] [facility] Heart rate 2024-01-09 19:41:00 104 /min [facility] Body temperature 2024-01-09 19:41:00 36.72 Michelle [facility] Body height 2024-01-09 19:41:00 152.4 cm [facility] Body weight 2024-01-09 19:41:00 51.256 kg [facility] BMI 2024-01-09 19:41:00 22.07 kg/m2 [facility] Systolic blood pressure 2024-01-01 16:26:00 132 mm[Hg] [place] Diastolic blood pressure 2024-01-01 16:26:00 75 mm[Hg] [facility] Heart rate 2024-01-01 16:26:00 89 /min [facility] Body temperature 2024-01-01 16:26:00 36.44 Michelle [facility] Respiratory rate 2024-01-01 16:26:00 18 /min [facility] Oxygen saturation in Arterial blood by Pulse oximetry 2024-01-01 16:26:00 94 /min [facility] Body weight 2024-01-01 08:11:00 52.98 kg [facility] BMI 2024-01-01 08:11:00 22.81 kg/m2 [facility] Body height 2023-12-31 18:18:00 152.4 cm [facility] Systolic blood pressure 2023-12-11 13:11:00 103 mm[Hg] [facility] Diastolic blood pressure 2023-12-11 13:11:00 62 mm[Hg] [facility] Heart rate 2023-12-11 13:11:00 98 /min [facility] Body temperature 2023-12-11 13:11:00 36.72 Michelle [facility] Respiratory rate 2023-12-11 13:11:00 18 /min [facility] Body height 2023-12-11 13:11:00 154.9 cm [facility] Body weight 2023-12-11 13:11:00 49.896 kg [facility] BMI 2023-12-11 13:11:00 20.78 kg/m2 [facility] Oxygen saturation in Arterial blood by Pulse oximetry 2023-12-11 13:11:00 91 /min [facility] Heart rate 2023-07-15 16:09:00 104 /min [facility] Systolic blood pressure 2023-07-15 15:33:00 139 mm[Hg] [facility] Diastolic blood pressure 2023-07-15 15:33:00 82 mm[Hg] [facility] Body temperature 2023-07-15 15:33:00 37.28 Michelle [facility] Respiratory rate 2023-07-15 15:33:00 18 /min [facility] Body weight 2023-07-15 15:33:00 51.347 kg [facility] BMI 2023-07-15 15:33:00 22.11 kg/m2 [facility] Oxygen saturation in Arterial blood by Pulse oximetry 2023-07-15 15:33:00 92 /min [facility] Systolic blood pressure 2023-05-15 16:24:00 132 mm[Hg] [facility] Diastolic blood pressure 2023-05-15 16:24:00 62 mm[Hg] [facility] Heart rate 2023-05-15 16:24:00 107 /min [facility] Body height 2023-05-15 16:24:00 152.4 cm [facility] Body weight 2023-05-15 16:24:00 50.939 kg [facility] BMI 2023-05-15 16:24:00 21.93 kg/m2 [facility] Oxygen saturation in Arterial blood by Pulse oximetry 2023-05-15 16:24:00 96 /min [facility] Systolic blood pressure 2023-04-04 16:40:00 129 mm[Hg] [facility] Diastolic blood pressure 2023-04-04 16:40:00 72 mm[Hg] [facility] Heart rate 2023-04-04 16:40:00 81 /min [facility] Body temperature 2023-04-04 16:40:00 36.89 Michelle [facility] Body weight 2023-04-04 16:40:00 51.256 kg [facility] BMI 2023-04-04 16:40:00 20.67 kg/m2 [facility] Oxygen saturation in Arterial blood by Pulse oximetry 2023-04-04 16:40:00 95 /min [facility] Systolic blood pressure 2023-03-21 16:56:00 135 mm[Hg] [facility] Diastolic blood pressure 2023-03-21 16:56:00 79 mm[Hg] [facility] Heart rate 2023-03-21 16:56:00 84 /min [facility] Body temperature 2023-03-21 16:56:00 38 Michelle [facility] Body height 2023-03-21 16:56:00 157.5 cm [facility] Body weight 2023-03-21 16:56:00 51.574 kg [facility] BMI 2023-03-21 16:56:00 20.80 kg/m2 [facility] Oxygen saturation in Arterial blood by Pulse oximetry 2023-03-21 16:56:00 94 /min [facility] Systolic blood pressure 2023-03-17 15:38:00 129 mm[Hg] [facility] Diastolic blood pressure 2023-03-17 15:38:00 71 mm[Hg] [facility] Heart rate 2023-03-17 15:38:00 90 /min [facility] Body temperature 2023-03-17 15:38:00 37.33 Michelle [facility] Respiratory rate 2023-03-17 15:38:00 18 /min [facility] Body weight 2023-03-17 15:38:00 50.077 kg [facility] BMI 2023-03-17 15:38:00 20.86 kg/m2 [facility] Oxygen saturation in Arterial blood by Pulse oximetry 2023-03-17 15:38:00 95 /min [facility] Systolic blood pressure 2023-03-07 15:49:00 113 mm[Hg] [facility] Diastolic blood pressure 2023-03-07 15:49:00 64 mm[Hg] [facility] Heart rate 2023-03-07 15:49:00 89 /min [facility] Body temperature 2023-03-07 15:49:00 35.67 Michelle [facility] Body height 2023-03-07 15:49:00 154.9 cm [facility] Body weight 2023-03-07 15:49:00 52.164 kg [facility] BMI 2023-03-07 15:49:00 21.73 kg/m2 [facility] Body temperature 2023-01-17 19:29:00 35.94 Michelle [facility] Body height 2023-01-17 19:29:00 154.9 cm [facility] Body weight 2023-01-17 19:29:00 51.982 kg [facility] BMI 2023-01-17 19:29:00 21.65 kg/m2 [facility] Systolic blood pressure 2022-12-19 20:18:00 119 mm[Hg] [facility] Diastolic blood pressure 2022-12-19 20:18:00 67 mm[Hg] [facility] Heart rate 2022-12-19 20:18:00 89 /min [facility] Body height 2022-12-19 20:18:00 154.9 cm [facility] Body weight 2022-12-19 20:18:00 51.256 kg [facility] BMI 2022-12-19 20:18:00 21.35 kg/m2 [facility] Systolic blood pressure 2022-11-10 13:17:00 137 mm[Hg] [facility] Diastolic blood pressure 2022-11-10 13:17:00 72 mm[Hg] [facility] Heart rate 2022-11-10 13:17:00 74 /min [facility] Body height 2022-11-10 13:17:00 156.2 cm [facility] Body weight 2022-11-10 13:17:00 52.254 kg [facility] BMI 2022-11-10 13:17:00 21.41 kg/m2 [facility] Oxygen saturation in Arterial blood by Pulse oximetry 2022-11-10 13:17:00 97 /min [facility] Systolic blood pressure 2022-07-29 15:54:00 132 mm[Hg] [facility] Diastolic blood pressure 2022-07-29 15:54:00 76 mm[Hg] [facility] Heart rate 2022-07-29 15:54:00 118 /min [facility] Body temperature 2022-07-29 15:54:00 37.67 Michelle [facility] Respiratory rate 2022-07-29 15:54:00 16 /min [facility] Body height 2022-07-29 15:54:00 156.2 cm [facility] Body weight 2022-07-29 15:54:00 50.576 kg [facility] BMI 2022-07-29 15:54:00 20.73 kg/m2 [facility] Oxygen saturation in Arterial blood by Pulse oximetry 2022-07-29 15:54:00 96 /min [facility] Systolic blood pressure 2022-07-24 19:14:00 114 mm[Hg] [facility] Diastolic blood pressure 2022-07-24 19:14:00 69 mm[Hg] [facility] Heart rate 2022-07-24 19:14:00 82 /min [facility] Body temperature 2022-07-24 19:14:00 37.39 Michelle [facility] Body height 2022-07-24 19:14:00 154.9 cm [facility] Body weight 2022-07-24 19:14:00 51.256 kg [facility] BMI 2022-07-24 19:14:00 21.35 kg/m2 [facility] Systolic blood pressure 2022-05-29 15:09:00 130 mm[Hg] [facility] Diastolic blood pressure 2022-05-29 15:09:00 64 mm[Hg] [facility] Heart rate 2022-05-29 15:09:00 70 /min [facility] Body height 2022-05-29 15:09:00 154.9 cm [facility] Body weight 2022-05-29 15:09:00 49.079 kg [facility] BMI 2022-05-29 15:09:00 20.44 kg/m2 [facility] Oxygen saturation in Arterial blood by Pulse oximetry 2022-05-29 15:09:00 97 /min [facility] Systolic blood pressure 2022-05-11 21:59:00 114 mm[Hg] [facility] Diastolic blood pressure 2022-05-11 21:59:00 68 mm[Hg] [facility] Heart rate 2022-05-11 21:59:00 86 /min [facility] Body height 2022-05-11 21:59:00 154.9 cm [facility] Body weight 2022-05-11 21:59:00 50.122 kg [facility] BMI 2022-05-11 21:59:00 20.88 kg/m2 [facility] Oxygen saturation in Arterial blood by Pulse oximetry 2022-05-11 21:59:00 98 /min [facility] Systolic blood pressure 2022-02-02 16:57:00 134 mm[Hg] [facility] Diastolic blood pressure 2022-02-02 16:57:00 71 mm[Hg] [facility] Heart rate 2022-02-02 16:57:00 90 /min [facility] Body temperature 2022-02-02 16:57:00 36.67 Michelle [facility] Body height 2022-02-02 16:57:00 154.9 cm [facility] Body weight 2022-02-02 16:57:00 49.442 kg [facility] BMI 2022-02-02 16:57:00 20.60 kg/m2 [facility] Oxygen saturation in Arterial blood by Pulse oximetry 2022-02-02 16:57:00 97 /min on 2 liters [facility] Systolic blood pressure 2022-01-30 20:53:00 114 mm[Hg] [facility] Diastolic blood pressure 2022-01-30 20:53:00 70 mm[Hg] [facility] Heart rate 2022-01-30 20:53:00 83 /min [facility] Body height 2022-01-30 20:53:00 157.5 cm [facility] Body weight 2022-01-30 20:53:00 48.988 kg [facility] BMI 2022-01-30 20:53:00 19.75 kg/m2 [facility] Oxygen saturation in Arterial blood by Pulse oximetry 2022-01-30 20:53:00 93 /min [facility] Systolic blood pressure 2022-01-24 16:42:00 116 mm[Hg] [place] [facility] Diastolic blood pressure 2022-01-24 16:42:00 63 mm[Hg] [facility] Heart rate 2022-01-24 16:42:00 95 /min [facility] Body temperature 2022-01-24 16:42:00 36.78 Michelle [facility] Respiratory rate 2022-01-24 16:42:00 16 /min [facility] Oxygen saturation in Arterial blood by Pulse oximetry 2022-01-24 16:42:00 96 /min [facility] Body weight 2022-01-24 09:32:00 50.984 kg [facility] BMI 2022-01-24 09:32:00 20.56 kg/m2 [facility] Body height 2022-01-20 04:47:00 157.5 cm [facility] Systolic blood pressure 2021-11-21 14:23:00 118 mm[Hg] [facility] Diastolic blood pressure 2021-11-21 14:23:00 74 mm[Hg] [facility] Heart rate 2021-11-21 14:23:00 105 /min [facility] 2021-11-21 14:23:00 36.94 Michelle [facility] Respiratory rate 2021-11-21 14:23:00 16 /min [facility] Body height 2021-11-21 14:23:00 154.9 cm [facility] Body weight 2021-11-21 14:23:00 48.399 kg [facility] BMI 2021-11-21 14:23:00 20.16 kg/m2 [facility] Oxygen saturation in Arterial blood by Pulse oximetry 2021-11-21 14:23:00 96 /min [facility] Systolic blood pressure 2021-10-17 18:04:00 121 mm[Hg] [facility] Diastolic blood pressure 2021-10-17 18:04:00 74 mm[Hg] [facility] Heart rate 2021-10-17 18:04:00 105 /min [facility] Body temperature 2021-10-17 18:04:00 36.94 Michelle [facility] Body height 2021-10-17 18:04:00 154.9 cm [facility] Body weight 2021-10-17 18:04:00 48.988 kg [facility] BMI 2021-10-17 18:04:00 20.41 kg/m2 [facility] Body height 2021-04-08 16:45:00 161.3 cm [facility] [...] 2020-12-24 15:57:00 19.18 [facility] 2023-07-15 16:09:00 104 /min [facility] Systolic blood pressure 2023-07-15 15:33:00 139 mm[Hg] [facility] Diastolic blood pressure 2023-07-15 15:33:00 82 mm[Hg] [facility] Body temperature 2023-07-15 15:33:00 37.28 Michelle [facility] Respiratory rate 2023-07-15 15:33:00 18 /min [facility] Body weight 2023-07-15 15:33:00 51.347 kg [facility] BMI 2023-07-15 15:33:00 22.11 kg/m2 [facility] Oxygen saturation in Arterial blood by Pulse oximetry 2023-07-15 15:33:00 92 /min [facility] Body height 2023-05-15 16:24:00 152.4 cm [facility] Procedures Procedure Date / Time Performed Performing Clinician Source FLU VACC([id number]),65+YR,0.5 ML,IM,ADJUVANTED,TIV(FLUA D) 2024-01-09 20:05:56 Di Richards [facility] POCT GLUCOSE (AUTOMATED) 2024-01-01 16:42:00 Beronica Alicea [facility] POCT GLUCOSE (AUTOMATED) 2024-01-01 12:38:00 [facility] MAGNESIUM 2024-01-01 09:11:00 Jb Alicea [facility] TROPONIN I 2024-01-01 09:11:00 Jb Alicea [facility] BASIC METABOLIC PANEL (NA, K, CL, CO2, GLUCOSE, BUN, CREATININE, CA) 2024-01-01 09:11:00 Jb Alicea [facility] CBC WITH DIFF 2024-01-01 09:11:00 Jb Alicea [facility] D-DIMER 2024-01-01 09:11:00 Alpa Hancock [facility] POCT GLUCOSE (AUTOMATED) 2024-01-01 02:09:00 Beronica Alicea [facility] TROPONIN I 2023-12-31 21:55:00 Jb Alicea [facility] POCT GLUCOSE (AUTOMATED) 2023-12-31 21:35:00 [facility] POCT GLUCOSE (AUTOMATED) 2023-12-31 20:12:00 Beronica Alicea [facility] TRANSTHORACIC ECHO (TTE) COMPLETE 2023-12-31 17:57:51 Jb Alicea [facility] TROPONIN I 2023-12-31 14:01:00 Familia Loza [facility] COMP. METABOLIC PANEL (41949) 2023-12-31 14:01:00 Familia Loza [facility] CBC WITH DIFF 2023-12-31 14:01:00 Familia Loza [facility] GLYCOSYLATED HEMOGLOBIN (A1C) 2023-12-31 14:01:00 Jb Alicea [facility] N-TERMINAL PRO-BNP 2023-12-31 14:01:00 Zion Loza [facility] XR CHEST 1 VW 2023-12-31 13:58:00 Familia Loza [facility] HB ECG ROUTINE & RHYTHM STRIP 2023-12-31 13:11:33 Familia Loza [facility] POCT MOLECULAR FLU 2023-12-11 13:30:00 Roopa [facility] POCT SARS-COV-2 ANTIGEN (BINAX NOW) 2023-07-15 00:00[facility]00 [facility]2 ANTIGEN (BINAX NOW) 2023-07-15 00:00:00 [facility] GLYCOSYLATED HEMOGLOBIN (A1C) 2023-05-15 16:53:00 Roopa [facility] LIPID PANEL (43175)(TOTAL CHOLESTEROL, TRIGLYCERIDES, HDL) 2023-05-15 16:53:00 Roopa [facility] COMP. METABOLIC PANEL (61980) 2023-05-15 16:53:00 [facility] 2023-03-21 17:07:00 Unknown, Usha [facility] POCT MOLECULAR STREP 2023-03-21 17:06:00 Unknown, Attcatarina ríos [facility] POCT SARS-COV-2 ANTIGEN (BINAX NOW) 2023-03-21 00:00:00 Teto Gutierrez [facility] POCT URINALYSIS 2023-03-17 15:44:00 Poly Whitehead [facility] ASSIGNMENT OF BENEFITS 2023-03-17 15:25:41 Docto r Unassigned, [place] [facility] XR HAND 3+ VW RIGHT 2022-11-13 13:57:27 [facility]/CLEARANCE FORMS 2022-08-28 05:01:00 Doctor Unassigned, [place] [facility] XR CHEST 2 VW 2022-07-29 16:24:41 Poly Whitehead [facility] POCT MOLECULAR FLU 2022-07-29 15:55:00 Unknown, Attend [facility] POCT SARS-COV-2 ANTIGEN (BINAX NOW) 2022-07-29 15:54:00 Poly Whitehead [facility] POCT MOLECULAR STREP 2022-07-29 15:51:00 Unknown, Attcatarina ríos [facility] POCT GLUCOSE (AUTOMATED) 2022-06-15 14:08:00 Misbah Blas [facility] PATIENT FINANCIAL POLICY 2022-05-29 14:52:44 Doctor Unassigned, [place] [facility] CT LOW DOSE LUNG NODULE 2022-05-17 14:28:00 Tahira Blas [facility] CT LOW DOSE LUNG NODULE 2022-05-17 14:28:00 Tahira Blas [facility] GLYCOSYLATED HEMOGLOBIN (A1C) 2022-05-12 15:03:00 Roopa [facility] COMP. METABOLIC PANEL (16748) 2022-05-12 15:03:00 [facility] WITH DIFF 2022-05-12 15:03:00 Gelacio Blas [facility] MICROALBUMIN URINE 2022-05-12 15:03:00 Anene, Gelacio [facility] PNEUMOCOCCAL 20 CONJUGATE (PREVNAR 20) VACCINE 2022-05-11 22:21:50 Gelacio Blas [facility] SARS-COV-2 COVID-19 VACCINE 12 YRS+, BIVALENT 0.5ML, IM (MODERNA BOOSTER) 2022-05-11 22:21:50 Gelacio Bals [facility] CONSENT/REFUSAL FOR DIAGNOSIS AND TREATMENT 2022-05-11 21:35:54 Doctor Unassigned, [place] [facility] - OTHER 2022-03-24 06:01:00 Doctor U nassigned, [place] [facility] - OTHER 2022-03-09 06:01:00 Doctor U nassigned, [place] [facility] - OTHER 2022-02-14 06:01:00 Doctor U nassigned, [place] [facility] - OTHER 2022-02-09 06:01:00 Doctor U amysigned, [place] [facility] INSURANCE CORRESPONDENCE 2022-02-02 06:01:00 Doc tor Unassigned, [place] [facility] POCT GLUCOSE (AUTOMATED) 2022-01-24 17:15:00 Tarah Webb [facility] POCT GLUCOSE (AUTOMATED) 2022-01-24 12:45:00 Tarah Webb [facility] BASIC METABOLIC PANEL (NA, K, CL, CO2, GLUCOSE, BUN, CREATININE, CA) 2022-01-24 09:08:00 Yulia Garcia [facility] POCT GLUCOSE (AUTOMATED) 2022-01-24 01:42:00 Tarah Webb [facility] POCT GLUCOSE (AUTOMATED) 2022-01-23 22:11:00 Tarah Webb [facility] POCT GLUCOSE (AUTOMATED) 2022-01-23 17:11:00 Chrissy Dupree [facility] TRANSTHORACIC ECHO (TTE) COMPLETE 2022-01-23 14:47:00 Jason Barajas [facility] POCT GLUCOSE (AUTOMATED) 2022-01-23 12:35:00 Chrissy Dupree [facility] TROPONIN I 2022-01-23 09:08:00 Michelle South [facility] HB ECG ROUTINE & RHYTHM STRIP 2022-01-23 02:02:19 Betty Weldon [facility] POCT GLUCOSE (AUTOMATED) 2022-01-23 01:52:00 Chrissy Dupree [facility] POCT GLUCOSE (AUTOMATED) 2022-01-22 21:13:00 Chrissy Dupree [facility] POCT GLUCOSE (AUTOMATED) 2022-01-22 16:50:00 Chrissy Dupree [facility] POCT GLUCOSE (AUTOMATED) 2022-01-22 12:39:00 Chrissy Dupree [facility] PHOSPHORUS 2022-01-22 09:51:00 Betty Weldon [facility] MAGNESIUM 2022-01-22 09:51:00 Shiraz jeramy [facility] TROPONIN I 2022-01-22 09:51:00 Shiraz jeramy [facility] COMP. METABOLIC PANEL (03449) 2022-01-22 09:51:00 Betty Weldon [facility] CBC WITH DIFF 2022-01-22 09:51:00 Betty Weldon [facility] N-TERMINAL PRO-BNP 2022-01-22 09:51:00 Shiraz jeramy [facility] PROCALCITONIN 2022-01-22 09:51:00 [facility] TROPONIN I 2022-01-22 03:06:00 Michelle South [facility] POCT GLUCOSE (AUTOMATED) 2022-01-22 01:29:00 Chrissy Dupree [facility] CT CHEST PULMONARY ANGIOGRAM 2022-01-22 00:52:00 Jordan Webb [facility] TROPONIN I 2022-01-21 22:50:00 Michelle South [facility] LIPID PANEL (46687)(TOTAL CHOLESTEROL, TRIGLYCERIDES, HDL) 2022-01-21 22:50:00 Michelle South [facility] D-DIMER 2022-01-21 22:50:00 Michelle South U [facility] N-TERMINAL PRO-BNP 2022-01-21 22:50:00 Derick South [facility] HB ECG ROUTINE & RHYTHM STRIP 2022-01-21 22:33:04 Michelle South [facility] POCT GLUCOSE (AUTOMATED) 2022-01-21 21:50:00 Chrissy Dupree [facility] XR CHEST 1 VW 2022-01-21 19:40:41 Michelle South [facility] POCT GLUCOSE (AUTOMATED) 2022-01-21 16:46:00 Chrissy Dupree [facility] POCT GLUCOSE (AUTOMATED) 2022-01-21 12:34:00 Chrissy Dupree [facility] BASIC METABOLIC PANEL (NA, K, CL, CO2, GLUCOSE, BUN, CREATININE, CA) 2022-01-21 10:04:00 Noble Nash [facility] CBC WITH DIFF 2022-01-21 10:04:00 Noble Nash [facility] GLYCOSYLATED HEMOGLOBIN (A1C) 2022-01-21 10:04:00 Noble Nash [facility] POCT GLUCOSE (AUTOMATED) 2022-01-21 01:44:00 Chrissy Dupree [facility] POCT GLUCOSE (AUTOMATED) 2022-01-20 21:42:00 Chrissy Dupree [facility] POCT GLUCOSE (AUTOMATED) 2022-01-20 16:30:00 Chrissy Dupree [facility] POCT GLUCOSE (AUTOMATED) 2022-01-20 12:25:00 Chrissy Dupree [facility] MRSA / MSSA SCREEN BY PCRPRAVIN 2022-01-20 09:23:00 Adin Haskins [facility] XR PELVIS <3 VW 2022-01-20 04:07:50 Junaid Dupree [facility] XR HIPS 2 VW RIGHT 2022-01-20 02:39:00 Junaid Dupree [facility] BASIC METABOLIC PANEL (NA, K, CL, CO2, GLUCOSE, BUN, CREATININE, CA) 2022-01-20 02:27:00 Junaid Dupree [facility] CBC WITH DIFF 2022-01-20 02:27:00 Junaid Dupree [facility] DME/SUPPLY JUSTIFICATION 2021-12-14 05:01:00 Doc tor Unassigned, [place] [facility] POCT SARS-COV-2 ANTIGEN (BINAX NOW) 2021-11-21 14:28:00 Carrie Kessler [facility] XR CHEST 2 VW 2021-10-17 18:36:00 Marc Richards [facility] HCV ANTIBODY 2021-02-09 13:49:00 Gel[facility] CAST APPLICATION 2021-02-04 17:23:09 Adonis Mathis [facility] XR WRIST 3+ VIEWS RIGHT 2021-02-04 16:35:40 Eric Mathis ie [facility] CAST APPLICATION 2021-01-14 16:23:20 Adonis Mathis [facility] XR WRIST 3+ VIEWS RIGHT 2021-01-14 16:12:00 Eric Mathis [facility] XR FEMUR 2+ VW RIGHT 2021-01-14 16:09:00 Adonis Mathis [facility] XR WRIST 3+ VIEWS RIGHT 2020-12-24 06:17:00 Eric Mathis [facility] Encounters Start Date/Time End Date/Time Encounter Type Admission Type Attending Clinicians Care Facility Care Department Encounter ID Source 2021-04-08 10:51:43 Outpatient [facility] [id number] [facility] 2021-04-08 10:51:43 Outpatient [facility] [id number] [facility] 2021-02-25 10:40:57 Outpatient [facility] [id number] [facility] 2021-02-25 10:40:57 Outpatient [facility] [id number] [facility] 2021-02-04 10:48:38 Outpatient ADONIS MATHIS [facility] [id number] [facility] 2021-02-04 10:20:46 Outpatient [facility] [id number] [facility] 2021-01-14 10:51:42 Outpatient [facility] [id number] [facility] 2021-01-14 10:51:42 Outpatient [facility] [id number] [facility] 2020-12-24 11:10:15 Outpatient [facility] [id number] [facility] 2024-07-21 00:00:00 2024-07-22 10:48:43 Refill LaalfonzoDi case [facility] 1.2.840.114 350.1.13.10 4.2.7.2.686 [id number] [facility] 2024-06-29 00:00:00 2024-06-30 09:09:06 Refill LaalfonzoDi case [facility] 1..840.114 350.1.13.10 4.2.7.2.686 [id number] [facility] 2024-06-23 08:00:00 2024-06-23 08:36:13 Outpatient R DENISE DAHL [facility] [id number] [facility] 2024-06-23 08:00:00 2024-06-23 08:36:13 Office Visit Denise Dahl [facility] 1..840.114 350.1.13.10 4.2.7.2.686 [id number] [facility] 2024-06-09 09:30:00 2024-06-09 09:30:00 Outpatient R DI [facility] [id number] [facility] 2024-05-14 00:00:00 2024-05-15 07:37:31 Telephone Lamaria g [facility] 1..840.114 350.1.13.10 4.2.7.2.686 [id number] [facility] 2024-05-14 00:00:00 2024-05-14 15:12:22 Telephone Di Richards [facility] 1.2840.114 350.1.13.10 4.2.7.2.686 [id number] [facility] 2023-11-13 00:00:00 2024-05-10 07:05:49 Orders Only Julieta, [facility] 1..114 350.1.13.10 4.2.7.2.686 [id number] [facility] 2024-05-05 15:00:00 2024-05-05 15:37:01 Outpatient R BADIRIZAK LAIRD, [facility] [id number] [facility] 2024-05-05 15:00:00 2024-05-05 15:37:01 Office Visit TadDi case [facility] 1..114 350.1.13.10 4.2.7.2.686 [id number] [facility] 2024-05-02 00:00:00 2024-05-02 13:28:47 Telephone Di Richards [facility] 1..114 350.1.13.10 4.2.7.2.686 [id number] [facility] 2024-04-11 09:30:00 2024-04-11 10:30:00 Social Services Counselor Visit Therapist, Adc Respiratory Unknown, Attending [facility] 1.840.114 350.1.13.10 4.2.7.2.686 [id number] [facility] 2024-04-11 09:30:00 2024-04-11 09:30:00 Outpatient R [facility] [id number] [facility] 2024-03-25 08:00:00 2024-03-25 08:45:03 Outpatient R [facility] [id number] [facility] 2024-03-25 08:00:00 2024-03-25 08:45:03 [facility] 1.2.840.114 350.1.13.10 4.2.7.2.686 [id number] [facility] 2024-02-16 11:13:21 2024-02-16 23:59:00 Outpatient R [facility]HL [facility] [id number] [facility] 2024-02-16 11:13:21 2024-02-16 23:59:00 Hospital Encounter Denise Dahl [facility] 1.2.840.114 350.1.13.10 4.2.7.2.686 [id number] [facility] 2024-02-12 08:30:00 2024-02-12 08:59:35 Outpatient R DENISE DAHL [facility] [id number] [facility] 2024-02-12 08:30:00 2024-02-12 08:59:35 Office Visit Denise Dahl [facility] 1.2.840.114 350.1.13.10 4.2.7.2.686 [id number] [facility] 2024-01-22 00:00:00 2024-01-22 16:21:26 Telephone Di Richards [facility] 1.840.114 350.1.13.10 4.2.7.2.686 [id number] [facility] 2024-01-09 14:30:00 2024-01-09 15:17:24 Outpatient R DI [facility] [id number] [facility] 2024-01-09 14:30:00 2024-01-09 15:17:24 Office Visit Di Richards [facility] 1.840.114 350.1.13.10 4.2.7.2.686 [id number] [facility] 2024-01-02 00:00:00 2024-01-02 13:35:57 Transition of Care Billy Mike Miatha R [facility] 1.840.114 350.1.13.10 4.2.7.2.686 [id number] [facility] 2023-12-31 08:14:00 2024-01-01 12:54:00 Outpatient X JB ALICEA [facility] [id number] [facility] 2023-12-31 08:14:00 2024-01-01 12:54:00 Emergency Familia Loza David [facility] 1.840.114 350.1.13.10 4.2.7.2.686 [id number] [facility] 2023-12-11 08:00:00 2023-12-11 08:50:43 Outpatient R [facility]ACIO [facility] [id number] [facility] 2023-12-11 08:00:00 2023-12-11 08:50:43 [facility] 1.840.114 350.1.13.10 4.2.7.2.686 [id number] [facility] 2023-12-04 00:00:00 2023-12-04 11:58:48 Pre Visit Outreach Arely López April A [facility] 1.2.840.114 350.1.13.10 4.2.7.2.686 [id number] [facility] 2023-11-27 00:00:00 2023-11-27 08:37:21 Pre Visit Outreach Arely López April A [facility] 1.2.840.114 350.1.13.10 4.2.7.2.686 [id number] [facility] 2023-11-16 08:30:00 2023-11-16 08:30:00 Outpatient [facility]IO [facility] [id number] [facility] 2023-10-23 00:00:00 2023-10-23 14:25:48 Di Carey [facility] [facility] 1.2.840.114 350.1.13.10 4.2.7.2.686 [id number] 044 [id number] [facility] 2023-08-12 00:00:00 2023-08-14 09:09:37 Telephone Di Richards 1.2.840.1 03108.1.1 3.104.2.7 .3.399669 .8 [id number] [facility] 2023-07-18 00:00:00 2023-07-19 18:13:54 Gelacio Chakraborty 1.2.840.1 55668.1.1 3.104.2.7 .3.936520 .8 [id number] [facility] 2023-07-15 09:40:00 2023-07-15 11:19:50 Outpatient [facility] [id number] [facility] 2023-07-15 09:40:00 2023-07-15 11:19:50 Urgent Care Unknown, Attending Florencio Oropeza 1.2.840.1 56719.1.1 3.104.2.7 .3.690565 .8 [id number] [facility] 2023-07-15 00:00:00 2023-07-15 00:00:00 Travel 1.2.840.1 67552.1.1 3.104.2.7 .3.938447 .8 1.2.840.114 350.1.13.10 4.2.7.3.698 [id number] [facility] 2023-05-16 00:00:00 2023-05-16 00:00:00 Patient Outreach Gena Driver [facility] 1.84.114 350.1.13.10 4.2.7.2.686 [id number] [id number] [facility] 2023-05-15 12:00:00 2023-05-15 12:15:00 Social Services Counselor Visit Lab, Delano Blas [facility] 1.840.114 350.1.13.10 4.2.7.2.686 [id number] [facility] 2023-05-15 10:30:00 2023-05-15 10:43:04 [facility] [id number] [facility] 2023-05-15 10:30:00 2023-05-15 10:43:04 Office Visit Roopa [facility] 1.2840.114 350.1.13.10 4.2.7.2.686 [id number] 044 [id number] [facility] 2023-04-17 00:00:00 2023-04-17 00:00:00 Refill Di Richards Formerly [facility] JERMAIN?[facility] 1.84.114 350.1.13.10 4.2.7.2.686 [id number] 044 [id number] [facility] 2023-04-04 11:00:00 2023-04-04 11:15:00 Office Visit Di Richards [facility] 1.114 350.1.13.10 4.2.7.2.686 [id number] 044 [id number] [facility] 2023-04-04 11:00:00 2023-04-04 11:00:00 Outpatient R [facility] [id number] [facility] 2023-03-21 11:00:00 2023-03-21 11:30:32 Outpatient R [facility] [id number] [facility] 2023-03-21 11:00:00 2023-03-21 11:30:32 Urgent Care Teto Gutierrez Unknown, Attending [facility] 1.84114 350.1.13.10 4.2.7.2.686 [id number] [facility] 2023-03-20 00:00:00 2023-03-20 00:00:00 Telephone Poly Whitehead [facility]LY [facility], [facility] JERMAIN?ANDREY [facility] 1.84.114 350.1.13.10 4.2.7.2.686 [id number] [facility] 2023-03-17 09:20:00 2023-03-17 09:40:00 Urgent Care Poly Whitehead Unknown, [facility]ending [facility] 1.84114 350.1.13.10 4.2.7.2.686 [id number] [facility] 2023-03-17 09:20:00 2023-03-17 09:20:00 Outpatient R POLY [facility] [id number] [facility] 2023-03-17 00:00:00 2023-03-17 00:00:00 Orders Only Doctor Unassigned, [place] [facility] 840.114 350.1.13.10 4.2.7.2.686 [id number] [id number] [facility] 2023-03-07 09:50:00 2023-03-07 10:40:23 Outpatient R [facility] [id number] [facility] 2023-03-07 09:50:00 2023-03-07 10:40:23 [facility] 03.27.840.114 350.1.13.10 4.2.7.2.686 [id number] [facility] 2023-01-23 00:00:00 2023-01-23 00:00:00 Outpatient GC_GCBZW_Ka diyala_S PRIV PRIV [id number] [facility] 2023-01-22 00:00:00 2023-01-22 00:00:00 Outpatient GC_GCBZW_Ka diyala_S PRIV PRIV [id number] [facility] 2023-01-17 14:30:00 2023-01-17 15:20:59 Outpatient R [facility] [id number] [facility] 2023-01-17 14:30:00 2023-01-17 15:20:59 Office Visit [facility] .840.114 350.1.13.10 4.2.7.2.686 [id number] [facility] 2023-01-07 00:00:00 2023-01-07 00:00:00 Refill Di Richards Formerly [facility] JERMAIN?[facility] 1.84.114 350.1.13.10 4.2.7.2.686 [id number] [id number] [facility] 2022-12-19 15:15:00 2022-12-19 15:45:00 Office Visit Di Richards Former[facility] JERMAIN?ANDREY [facility] 1.84.114 350.1.13.10 4.2.7.2.686 [id number] 044 [id number] [facility] 2022-12-19 15:15:00 2022-12-19 15:15:00 Outpatient R DI [facility] [id number] [facility] 2022-11-23 00:00:00 2022-11-23 00:00:00 Letter (Out) JosecarlosPoly [facility]REY [facility] 1.84.114 350.1.13.10 4.2.7.2.686 [id number] [facility] 2022-11-22 15:20:00 2022-11-22 15:20:00 Outpatient [facility] [id number] [facility] 2022-11-16 00:00:00 2022-11-16 00:00:00 Telephone TadDi case Formerly [facility] JERMAIN?ANDREY [facility] 1.84.114 350.1.13.10 4.2.7.2.686 [id number] [id number] [facility] 2022-11-16 00:00:00 2022-11-16 00:00:00 Refill Di Richards Formerly [facility] JERMAIN?ANDREY [facility] 1.84.114 350.1.13.10 4.2.7.2.686 [id number] 044 [id number] [facility] 2022-11-15 00:00:00 2022-11-15 00:00:00 Pre Visit Outreach Kartik Weiner [facility] 1.114 350.1.13.10 4.2.7.2.686 [id number] [facility] 2022-11-15 00:00:00 2022-11-15 00:00:00 Letter (Out) Lorie Sloane [facility] 1.114 350.1.13.10 4.2.7.2.686 [id number] [facility] 2022-11-14 14:30:00 2022-11-14 14:45:00 Laboratory Only Only, Ang Db Test Unknown, Attending [facility] 1.114 350.1.13.10 4.2.7.2.686 [id number] [facility] 2022-11-14 14:30:00 2022-11-14 14:24:26 Outpatient R [facility] [id number] [facility] 2022-11-13 08:15:00 2022-11-13 23:59:00 Outpatient R [facility] [id number] [facility] 2022-11-13 08:15:00 2022-11-13 23:59:00 [facility] 1.114 350.1.13.10 4.2.7.2.686 [id number] [facility] 2022-11-13 09:30:00 2022-11-13 09:45:00 Social Services Counselor Visit Lab, Ang - Db [facility] 1.2.840.114 350.1.13.10 4.2.7.2.686 [id number] [facility] 2022-11-10 09:23:45 2022-11-10 23:59:00 Outpatient R [facility]ELACIO [facility] [id number] [facility] 2022-11-10 09:23:45 2022-11-10 23:59:00 [facility] 1.840.114 350.1.13.10 4.2.7.2.686 [id number] [facility] 2022-11-10 09:30:00 2022-11-10 09:45:00 Social Services Counselor Visit Lab, Delano Gonzalez Tahira BlasFormerly [facility] JERMAIN?ANDREY [facility] 1.840114 350.1.13.10 4.2.7.2.686 [id number] [facility] 2022-11-10 08:30:00 2022-11-10 09:18:43 Office Visit [facility] 1.2840.114 350.1.13.10 4.2.7.2.686 [id number] 044 [id number] [facility] 2022-09-24 00:00:00 2022-09-24 00:00:00 Yumiko Lamaria g [facility] 1.840.114 350.1.13.10 4.2.7.2.686 [id number] [id number] [facility] 2022-09-13 00:00:00 2022-09-13 00:00:00 Yumiko Laalfonzomanpreet [facility]MAIN[facility] 1.20.114 350.1.13.10 4.2.7.2.686 [id number] [id number] [facility] 2022-09-12 00:00:00 2022-09-12 00:00:00 Refill Di Richards [facility]?ANDREY [facility] 1.840.114 350.1.13.10 4.2.7.2.686 [id number] [id number] [facility] 2022-08-28 00:00:00 2022-08-28 00:00:00 Orders Only Doctor Unassigned, [place] [facility] 1..114 350.1.13.10 4.2.7.2.686 [id number] [facility] 2022-07-29 11:10:26 2022-07-29 23:59:00 Outpatient R POLY [facility] [id number] [facility] 2022-07-29 11:10:26 2022-07-29 23:59:00 Hospital Encounter Charley Davidsony [facility]ILD[facility] 1.84114 350.1.13.10 4.2.7.2.686 [id number] [facility] 2022-07-29 10:40:00 2022-07-29 11:00:00 Urgent Care Poly Whitehead Unknown, Attending [facility] 1.84.114 350.1.13.10 4.2.7.2.686 [id number] [facility] 2022-07-24 14:15:00 2022-07-24 14:30:00 Office Visit Di Richards [facility]ILD[facility] 1.284.114 350.1.13.10 4.2.7.2.686 [id number] [id number] [facility] 2022-07-24 14:15:00 2022-07-24 14:15:00 Outpatient R DI [facility] [id number] [facility] 2022-06-26 00:00:00 2022-06-26 00:00:00 RefDi Tay [facility] 1.840.114 350.1.13.10 4.2.7.2.686 [id number] 044 [id number] [facility] 2022-06-15 08:29:49 2022-06-15 23:59:00 [facility] 1.840.114 350.1.13.10 4.2.7.2.686 [id number] [facility] 2022-06-15 08:29:19 2022-06-15 23:59:00 Outpatient R ROOPA [facility] [id number] [facility] 2022-06-15 08:29:19 2022-06-15 23:59:00 [facility] 1.840.114 350.1.13.10 4.2.7.2.686 [id number] [facility] 2022-06-14 00:00:00 2022-06-14 00:00:00 Outpatient R [facility] [id number] [facility] 2022-05-29 09:00:00 2022-05-29 09:33:44 Outpatient R GELACIO [facility] [id number] [facility] 2022-05-29 09:00:00 2022-05-29 09:33:44 [facility] 1..840.114 350.1.13.10 4.2.7.2.686 [id number] [id number] [facility] 2022-05-29 00:00:00 2022-05-29 00:00:00 Orders Only Doctor Unassigned, [place] [facility] 1..840.114 350.1.13.10 4.2.7.2.686 [id number] [facility] 2022-05-17 07:54:44 2022-05-17 23:59:00 Outpatient R GELACIO [facility] [id number] [facility] 2022-05-17 07:54:44 2022-05-17 23:59:00 Hospital Encounter Gelacio Blas [facility] 1..840.114 350.1.13.10 4.2.7.2.686 [id number] [facility] 2022-05-12 08:30:00 2022-05-12 09:15:56 Social Services Counselor Visit Lab, Delano Fragarafael [facility] OFF[facility]ILD[facility] 1..840.114 350.1.13.10 4.2.7.2.686 [id number] [facility] 2022-05-12 08:30:00 2022-05-12 08:30:00 Outpatient R GELACIO [facility] [id number] [facility] 2022-05-11 16:00:00 2022-05-11 16:41:26 Outpatient R GELACIO [facility] [id number] [facility] 2022-05-11 16:00:00 2022-05-11 16:41:26 Office Visit Roopa [facility] 1..840.114 350.1.13.10 4.2.7.2.686 [id number] [id number] [facility] 2022-05-11 00:00:00 2022-05-11 00:00:00 Orders Only Doctor Unassigned, [place] [facility] 1.2840.114 350.1.13.10 4.2.7.2.686 [id number] [facility] 2022-03-24 00:00:00 2022-03-24 00:00:00 Telephone Maurice [facility] 1.2840.114 350.1.13.10 4.2.7.2.686 [id number] [id number] [facility] 2022-03-24 00:00:00 2022-03-24 00:00:00 Orders Only Doctor Unassigned, [place] [facility] 1.2840.114 350.1.13.10 4.2.7.2.686 [id number] [facility] 2022-03-14 00:00:00 2022-03-14 00:00:00 Telephone Maurice Di [facility] 1.2840.114 350.1.13.10 4.2.7.2.686 [id number] 044 [id number] [facility] 2022-03-09 00:00:00 2022-03-09 00:00:00 Gelacio Chakraborty [facility] 1.2840.114 350.1.13.10 4.2.7.2.686 [id number] [id number] [facility] 2022-03-09 00:00:00 2022-03-09 00:00:00 Orders Only Doctor Unassigned, [place] [facility] 1.2.840.114 350.1.13.10 4.2.7.2.686 [id number] [facility] 2022-02-28 00:00:00 2022-02-28 00:00:00 Telephone MauriceDi [facility] 1.2.840.114 350.1.13.10 4.2.7.2.686 [id number] [id number] [facility] 2022-02-14 00:00:00 2022-02-14 00:00:00 Orders Only Doctor Unassigned, [place] [facility] 1.2840.114 350.1.13.10 4.2.7.2.686 [id number] [id number] [facility] 2022-02-09 00:00:00 2022-02-09 00:00:00 Orders Only Doctor Unassigned, [place] [facility] 1.2840.114 350.1.13.10 4.2.7.2.686 [id number] [facility] 2022-02-02 11:00:00 2022-02-02 11:34:37 Outpatient R [facility] [id number] [facility] 2022-02-02 11:00:00 2022-02-02 11:34:37 Office Visit Saundra Colmenares [facility] 1.2.840.114 350.1.13.10 4.2.7.2.686 [id number] 044 [id number] [facility] 2022-02-02 00:00:00 2022-02-02 00:00:00 Orders Only Doctor Unassigned, [place] [facility] 1.2.840.114 350.1.13.10 4.2.7.2.686 [id number] [facility] 2022-01-30 14:30:00 2022-01-30 15:24:22 Outpatient R [facility] [id number] [facility] 2022-01-30 14:30:00 2022-01-30 15:24:22 Office Visit Rachel Cevallos [facility] 1.2840.114 350.1.13.10 4.2.7.2.686 [id number] [facility] 2022-01-25 00:00:00 2022-01-25 00:00:00 Transition of Care Gifty Johansen 1.840.114 350.1.13.10 4.2.7.2.686 [id number] [facility] 2022-01-19 21:21:00 2022-01-24 18:56:00 Inpatient X JORDAN WEBB [facility] CELI [id number] [facility] 2022-01-19 21:21:00 2022-01-24 18:56:00 Hospital Encounter Junaid Dupree, Jordan Strauss [facility] 1.840.114 350.1.13.10 4.2.7.2.686 [id number] [facility] 2021-12-26 00:00:00 2021-12-26 00:00:00 Letter (Out) Rafa Amezquita [facility] 1.2.840.114 350.1.13.10 4.2.7.2.686 [id number] [facility] 2021-12-14 00:00:00 2021-12-14 00:00:00 Orders Only Doctor Unassigned, [place] [facility] 1.2840.114 350.1.13.10 4.2.7.2.686 [id number] [facility] 2021-11-27 10:30:00 2021-11-27 10:30:00 Outpatient [facility] [id number] [facility] 2021-11-21 09:40:00 2021-11-21 10:00:00 Urgent Care [facility] 1.2.840.114 350.1.13.10 4.2.7.2.686 [id number] [facility] 2021-11-21 09:40:00 2021-11-21 09:40:00 Outpatient R POLY [facility] [id number] [facility] 2021-11-21 00:00:00 2021-11-21 00:00:00 Refill [facility] J[facility]MAIN?[facility] 1..840.114 350.1.13.10 4.2.7.2.686 [id number] [facility] 2021-10-17 13:15:54 2021-10-17 23:59:00 Outpatient R DI [facility] [id number] [facility] 2021-10-17 13:15:54 2021-10-17 23:59:00 Hospital Encounter Tadmanpreet Di Formerly [facility] J[facility]MAIN?[facility] 1..840.114 350.1.13.10 4.2.7.2.686 [id number] [facility] 2021-10-17 13:00:00 2021-10-17 13:15:00 Office Visit Maurice Di [facility] JERMAIN?[facility] 1..840.114 350.1.13.10 4.2.7.2.686 [id number] 044 [id number] [facility] 2021-10-17 13:00:00 2021-10-17 13:00:00 Outpatient R DI [facility] [id number] [facility] 2021-08-12 00:00:00 2021-08-12 00:00:00 Refill Di Richards Former[facility] JERMAIN?[facility] 1.2840.114 350.1.13.10 4.2.7.2.686 [id number] [id number] [facility] 2021-08-09 00:00:00 2021-08-09 00:00:00 Refill Di Richards Former[facility] JERMAIN?ANDREY [facility] 1.2840.114 350.1.13.10 4.2.7.2.686 [id number] 044 [id number] [facility] 2021-08-09 00:00:00 2021-08-09 00:00:00 Refill Roopa GelacioFormerly [facility] JERMAIN?[facility] 1.2840.114 350.1.13.10 4.2.7.2.686 [id number] 044 [id number] [facility] 2021-08-05 00:00:00 2021-08-05 00:00:00 Refill Marko Lisandro [facility]MAIN[facility] 1.2840.114 350.1.13.10 4.2.7.2.686 [id number] 044 [id number] [facility] 2021-07-18 00:00:00 2021-07-18 00:00:00 Refill Di Richards [facility] J[place]MAIN?[facility] 1.2840.114 350.1.13.10 4.2.7.2.686 [id number] 044 [id number] [facility] 2021-07-18 00:00:00 2021-07-18 00:00:00 Refill Di Richards Former[facility] JERMAIN?[facility] 1.2840.114 350.1.13.10 4.2.7.2.686 [id number] 044 [id number] [facility] 2021-07-12 00:00:00 2021-07-12 00:00:00 Telephone Anene, Gelacio [facility]Y [facility] 1.0.114 350.1.13.10 4.2.7.2.686 [id number] 044 [id number] [facility] 2021-07-11 00:00:00 2021-07-11 00:00:00 Lisandro Marte [facility] 1.0.114 350.1.13.10 4.2.7.2.686 [id number] 044 [id number] [facility] 2021-06-30 11:51:00 2021-06-30 14:22:00 Emergency X RAJ METZ [facility] ERT [id number] [facility] 2021-06-30 11:51:00 2021-06-30 14:22:00 Emergency Raj Metz B [facility] 1.0.114 350.1.13.10 4.2.7.2.686 [id number] [facility] 2021-06-30 00:00:00 2021-06-30 00:00:00 Orders Only Doctor Unassigned, [place] [facility] 1.840.114 350.1.13.10 4.2.7.2.686 [id number] [facility] 2021-05-26 00:00:00 2021-05-26 00:00:00 Orders Only Doctor Unassigned, [place] [facility] 1.2840.114 350.1.13.10 4.2.7.2.686 [id number] [facility] 2021-05-13 00:00:00 2021-05-13 00:00:00 Telephone Di Richards [facility]?ANDREY [facility] 1.114 350.1.13.10 4.2.7.2.686 [id number] 044 [id number] [facility] 2021-05-11 11:26:05 2021-05-11 23:59:00 Outpatient R [facility] [id number] [facility] 2021-05-11 11:26:05 2021-05-11 23:59:00 Hospital Encounter Saundra Colmenares [facility] 1..840.114 350.1.13.10 4.2.7.2.686 [id number] [facility] 2021-05-11 10:30:00 2021-05-11 11:26:26 Outpatient R [facility] [id number] [facility] 2021-05-11 10:30:00 2021-05-11 11:26:26 Office Visit Saundra Colmenares [facility] 1..840.114 350.1.13.10 4.2.7.2.686 [id number] [facility] 2021-05-06 08:46:00 2021-05-06 09:30:00 Emergency X ACOSTAJUSTIN [facility] ERT [id number] [facility] 2021-05-06 08:46:00 2021-05-06 09:30:00 Emergency AcostaJustin nieto [facility] 1..840.114 350.1.13.10 4.2.7.2.686 [id number] [facility] 2021-04-27 00:00:00 2021-04-27 00:00:00 Orders Only Doctor Unassigned, [place] [facility] 1..840.114 350.1.13.10 4.2.7.2.686 [id number] [facility] 2021-04-25 00:00:00 2021-04-25 00:00:00 Telephone Veselka, Di [facility] 1.840.114 350.1.13.10 4.2.7.2.686 [id number] [facility] 2021-04-25 00:00:00 2021-04-25 00:00:00 Telephone Di Richards [facility] 1.840.114 350.1.13.10 4.2.7.2.686 [id number] [facility] 2021-04-18 11:30:00 2021-04-18 11:46:29 Office Visit Di Richards [facility] 1.840.114 350.1.13.10 4.2.7.2.686 [id number] [facility] 2021-04-18 11:30:00 2021-04-18 11:46:29 Outpatient R [facility] [id number] [facility] 2021-04-18 11:30:00 2021-04-18 11:30:00 Outpatient R DI [facility] [id number] [facility] 2021-04-18 00:00:00 2021-04-18 00:00:00 [facility]phone [facility] 1.840.114 350.1.13.10 4.2.7.2.686 [id number] [facility] 2021-04-18 00:00:00 2021-04-18 00:00:00 Orders Only Doctor Unassigned, [place] [facility] 1.284.114 350.1.13.10 4.2.7.2.686 [id number] [facility] 2021-04-13 00:00:00 2021-04-13 00:00:00 [facility] 1.2840.114 350.1.13.10 4.2.7.2.686 [id number] [facility] 2021-04-08 10:45:00 2021-04-08 11:55:25 Office Visit Adonis Mathis [facility] 1 1.2840.114 350.1.13.58 9.2.7.2.686 [id number] [facility] 2021-03-31 14:30:00 2021-03-31 15:33:54 [facility] 1.2.840.114 350.1.13.10 4.2.7.2.686 [id number] [facility] 2021-03-31 14:30:00 2021-03-31 15:33:54 Outpatient R [facility] [id number] [facility] 2021-03-31 14:30:00 2021-03-31 14:30:00 Outpatient [facility] [id number] [facility] 2021-03-30 00:00:00 2021-03-30 00:00:00 Telephone [facility]as[facility]ly [facility] JERMAIN?[facility] 1.284.114 350.1.13.10 4.2.7.2.686 [id number] [facility] 2021-03-08 00:00:00 2021-03-08 00:00:00 Refill Analisa Daniels [facility] [address] 1 1.284.114 350.1.13.58 9.2.7.2.686 [id number] [facility] 2021-02-26 00:00:00 2021-02-26 00:00:00 [facility] 1.84114 350.1.13.10 4.2.7.2.686 [id number] [facility] 2021-02-22 08:46:47 2021-02-22 23:59:00 Outpatient [facility] [id number] [facility] 2021-02-22 08:46:47 2021-02-22 23:59:00 Hospital Encounter Gelacio Blas [facility] 1.114 350.1.13.10 4.2.7.2.686 [id number] [facility] 2021-02-22 00:00:00 2021-02-22 00:00:00 Orders Only Doctor Unassigned, [place] [facility] 1.84114 350.1.13.10 4.2.7.2.686 [id number] [facility] 2021-02-09 07:30:00 2021-02-09 07:30:00 Outpatient [facility] [id number] [facility] 2021-02-09 07:30:00 2021-02-09 07:30:00 Outpatient R [facility] [id number] [facility] 2021-02-09 07:12:49 2021-02-09 07:27:49 Social Services Counselor Visit Lab, [place] - [facility] 1.84.114 350.1.13.10 4.2.7.2.686 [id number] [facility] 2021-02-07 00:00:00 2021-02-07 00:00:00 Refill Jeremiah, Analisa Brown [facility] 1 1.84.114 350.1.13.58 9.2.7.2.686 [id number] [facility] 2021-02-04 13:00:00 2021-02-04 14:24:58 Outpatient R [facility] [id number] [facility] 2021-02-04 13:00:00 2021-02-04 14:24:58 [facility] [id number] [facility] 2021-02-04 12:39:30 2021-02-04 14:24:58 [facility] 1.2840.114 350.1.13.10 4.2.7.2.686 [id number] [facility] 2021-02-04 10:01:07 2021-02-04 10:52:45 Office Visit Adonis Mathis [facility] 1 1.2840.114 350.1.13.58 9.2.7.2.686 [id number] [facility] 2021-02-04 00:00:00 2021-02-04 00:00:00 Orders Only Doctor Unassigned, [place] [facility] 1.2840.114 350.1.13.10 4.2.7.2.686 [id number] [facility] 2021-01-28 00:00:00 2021-01-28 00:00:00 Refill Daniels, Analisa Daniels, Analisa [facility] [address] 1 1.2840.114 350.1.13.58 9.2.7.2.686 [id number] [facility] 2021-01-17 00:00:00 2021-01-17 00:00:00 Refill Daniels, Analisa Daniels, Analisa [facility] 1 1.2840.114 350.1.13.58 9.2.7.2.686 [id number] [facility] 2021-01-14 10:35:43 2021-01-14 11:21:36 Office Visit Adonis Mathis [facility] 1 1..114 350.1.13.58 9.2.7.2.686 [id number] [facility] 2021-01-01 00:00:00 2021-01-01 00:00:00 Letter (Out) Diamante Rapp [facility] 1.114 350.1.13.10 4.2.7.2.686 [id number] [facility] 2020-12-30 11:23:32 2020-12-30 11:38:32 Laboratory Only Only, Ang Db [facility] 1.114 350.1.13.10 4.2.7.2.686 [id number] [facility] 2020-12-30 11:30:00 2020-12-30 11:30:00 Outpatient R POLY [facility] [id number] [facility] 2020-12-30 00:00:00 2020-12-30 00:00:00 Orders Only Doctor Unassigned, [place] [facility] 1. 350.1.13.10 4.2.7.2.686 [id number] [facility] 2020-12-24 10:48:14 2020-12-24 11:03:14 Office Visit Adonis Mathis [facility] 1 1..114 350.1.13.58 9.2.7.2.686 [id number] [facility] 2020-12-24 00:00:00 2020-12-24 00:00:00 Refill Adonis Mathis [facility] 1 1.2.840.114 350.1.13.58 9.2.7.2.686 [id number] [facility] 2020-12-21 00:00:00 2020-12-21 00:00:00 Telephone Only, Ang Db Test [facility] Medical Office Building 1.2840.114 350.1.13.10 4.2.7.2.686 [id number] [facility] 2020-12-20 00:00:00 2020-12-20 00:00:00 Telephone Pcp, Patient Does Not Have A [facility] 1.2840.114 350.1.13.10 4.2.7.2.686 [id number] [facility] 2020-12-19 00:00:00 2020-12-19 00:00:00 Telephone Belgica Benson [facility] 1.2840.114 350.1.13.10 4.2.7.2.686 [id number] [facility] 2020-12-18 19:04:26 2020-12-18 19:19:26 Laboratory Only Only, Ang Db Test Florencio Oropeza [facility] Office Building 1.2840.114 350.1.13.10 4.2.7.2.686 [id number] [facility] 2020-12-18 19:15:00 2020-12-18 19:15:00 Outpatient R [facility] [id number] [facility] 2020-12-13 19:15:00 2020-12-13 22:33:00 Emergency Miles Golden [facility] 1.2.840.114 350.1.13.10 4.2.7.2.686 [id number] [facility] 2020-12-13 19:15:00 2020-12-13 19:15:00 Emergency X YARIMA, WAKILI [facility] ERT [id number] [facility] 2020-12-13 00:00:00 2020-12-13 00:00:00 Telephone [facility] 1.2.840.114 350.1.13.58 9.2.7.2.686 [id number] [facility] 2020-12-10 16:59:52 2020-12-10 17:59:52 EXT [facility] OP ADONIS MATHIS EXT [facility] LOCATION 1.2.840.114 350.1.13.58 9.2.7.2.686 [id number] [facility] 2020-12-10 16:59:52 2020-12-10 17:59:52 EXT [facility] OP Adonis Mathis EXT [facility] LOCATION 1.2.840.114 350.1.13.58 9.2.7.2.686 [id number] [facility] 2009-12-20 00:00:00 2009-12-20 16:16:51 [facility]patient [facility] [id number] [facility] 2009-12-09 00:00:00 2009-12-09 15:42:17 Outpatient Mitra CHRISTIANA PABLO [facility] VLS [id number] [facility] 2009-11-22 00:00:00 2009-11-22 14:24:24 Outpatient [facility] [id number] [facility] 2009-11-04 00:00:00 2009-11-05 11:09:57 Outpatient R BELINDACarlos PABLO [facility] DSU [id number] [facility] 2009-10-04 00:00:00 2009-10-04 15:18:05 Outpatient [facility] [id number] [facility] 2009-08-10 00:00:00 2009-08-10 14:23:48 Outpatient [facility] [id number] [facility] 2009-07-01 00:00:00 2009-07-01 13:40:39 Outpatient [facility] [id number] [facility] 2009-05-12 00:00:00 2009-05-12 12:09:26 Outpatient [facility] [id number] [facility] 2009-05-05 00:00:00 2009-05-05 11:56:54 Outpatient [facility] [id number] [facility] 2009-04-22 00:00:00 2009-04-22 15:31:05 Outpatient [facility] [id number] [facility] 2009-04-01 00:00:00 2009-04-02 09:23:48 Outpatient [facility] [id number] [facility] 2009-02-11 00:00:00 2009-02-11 16:47:01 Outpatient [facility] [id number] [facility] Results Test Description Test Time Test Comments Results Result Co mments Source [facility] GLUCOSE (AUTOMATED)2024-01-01 12:45:27* Test Item Value Reference Range Interpretation Comme [facility] POCT GLU (test code = 1419951508) 156 mg/dL 70-110 H Lab Interpretation (test cod e = 01376-5) Abnormal [facility] GLUCOSE (AUTOMATED)2024-01-01 02:10:31* Test Item Value Reference Range Interpretation Comme [facility] POCT GLU (test code = 3650654452) 153 mg/dL 70-110 H Lab Interpretation (test cod e = 69463-5) [facility]normal [facility]2023-12-31 22:43:57* Test Item Value Reference Range Interpretation Comme nts Height (test code = 3950224960) 60 in Weight (test code = 1364803355) 115 lbs Systolic BP (test code = 4047374471) 130 mmHg Diastolic BP (test code = 1169354180) 65 mmHg Heart Rate (test code = 9119913921) 68 bpm EF(Teich) (test code = 7382515742) 60.60 % LVIDD (test code = 2010387506) 3.80 cm LVIDS (test code = 2980650115) 2.60 cm Left Ventricular End Systolic Volume by Teichholz Method (test code = 4620094) 23.7 mL Left Ventricular End Diastolic Volume by Teichholz Method (test code = 8783826) 60.0 mL IVS (test code = 0189964343) 0.85 cm LVPWD (test code = 9857265082) 0.64 cm LVOT diameter (test code = 8974253299) 1.90 cm LVOT area (test code = 0112492000) 2.80 cm2 FS (test code = 2195473574) 32 % LA size (test code = 6182765716) 3.4 cm RVOT Proximal Diameter (test code = 7216880221) 2.80 cm ACS (test code = 9037161927) 1.80 cm Ao root diam (test code = 0489154470) 3.00 cm Aortic root (test code = 5588683549) 3.0 cm Ao root annulus (test code = 8978325859) 3.0 cm PW (test code = 6919538072) 0.64 cm 0.6-1.1 EF - 2D (test code = 62297303) 60.60 % Interventricular Septum Diastolic Thickness by 2D (test code = 4529532) 0.85 cm BSA (test code = 6633670102) 1.48 m2 E wave decelartion time (test code = 6569827749) 0.27 s MV Peak E Dilma (test code = 4153785832) 82.3 cm/s MV Peak A Dilma (test code = 4736580691) 112.1 cm/s E/A ratio (test code = 2001093339) 0.73 ratio MV Prop V (test code = 5616441578) 48.10 cm/s TR Peak Dilma (test code = 8359539054) 226.2 cm/s Triscuspid Valve Regurgitation Peak Gradient (test code = 0781350923) 20.5 mmHg LVOT stroke volume (test code = 8811362194) 67.20 cm3 LVOT peak dilma (test code = 4033039555) 104.3 cm/s LVOT mn grad (test code = 5940001892) 1.9 mmHg AV LVOT peak gradient (test code = 0111790727) 4.4 mmHg LVOT peak VTI (test code = 3516140020) 23.7 cm LV V1 mean (test code = 3968247473) 62.90 cm/s Aortic valve mean velocity (test code = 6487835524) 83.9 cm/s Ao peak dilma (test code = 9952468753) 125.8 cm/s Ao VTI (test code = 0181251948) 24.5 cm AV area by cont VTI (test code = 1647934389) 2.7 cm2 AV area peak dilma (test code = 6319913218) 2.4 cm2 Ao max PG (test code = 9431669887) 6.30 mm[Hg] AV peak gradient (test code = 9605689798) 6.3 mmHg AV valve area (test code = 7447400125) 2.70 cm2 AV mean gradient (test code = 8201035333) 3.2 mmHg Radiology Study observation (narrative) (test code = 59725-9) SERGIO (test code = SERGIO) ?Left?Ventricle: Left ventricle size is normal. Normal wall thickness. Normal wall motion. ?Right?Ventricle: Right ventricle size is normal. Normal systolic function. ?Left?Atrium: Left atrium size is normal. ?Aortic?Valve: Aortic valve structure is normal. ?Pulmonic?Valve: Pulmonic valve is normal in structure and function. ?Mitral?Valve: Mitral valve structure is normal. ?Tricuspid?Valve: Tricuspid valve structure is normal. Physiologically normal transvalvular regurgitation. Right ventricular systolic pressure is normal. ?RA pressure is 5-10 mmHg. ?Aorta: Normal sized aorta. Left VentricleLeft ventricle size is normal. Normal wall thickness. Normal wall motion. No regional wall motion abnormalities. Normal systolic function with a visually estimated EF of 60 - 65%. There is impaired relaxation.Right VentricleRight ventricle size is normal. Normal systolic function.Left AtriumLeft atrium size is normal.Right AtriumRight atrium size is normal.Mitral ValveMitral valve structure is normal. Trace transvalvular regurgitation.Tricuspi d ValveTricuspid valve structure is normal. Physiologically normal transvalvular regurgitation. Right ventricular systolic pressure is normal. RA pressure is 5-10 mmHg.Aortic ValveAortic valve structure is normal. No transvalvular regurgitation.Pulmonic ValvePulmonic valve is normal in structure and function. Trace transvalvular regurgitation.Ascendin g AortaNormal sized aorta.PericardiumThe pericardium is normal. No pericardial effusion.Study DetailsStudy quality was adequate. A complete echocardiogram was performed using 2D, color flow Doppler and spectral Doppler. The apical, parasternal, subcostal and suprasternal views were obtained. [facility] GLUCOSE (AUTOMATED)2023-12-31 21:36:26* Test Item Value Reference Range Interpretation Comme [facility] POCT GLU (test code = 9159290416) 229 mg/dL 70-110 H Lab Interpretation (test cod e = 86471-7) Abnormal [facility] GLUCOSE (AUTOMATED)2023-12-31 20:22:59* Test Item Value Reference Range Interpretation Comme [facility] POCT GLU (test code = 2616777618) 191 mg/dL 70-110 H Lab Interpretation (test cod e = 29062-0) Abnormal [facility]cos[facility] Hemoglobin (A1C)2023-12-31 18:04:42* Test Item Value Reference Range Interpretation Comme [facility] HGB A1C (test code = 4548-4) 8.8 % 4.0-5.7 H SERGIO (test code = SERGIO) Reference RangesNormal: <5.7%Prediabetes: 5.7 - 6.4%Diabetes: > 6.5% Lab Interpretation (test code = 63174-4) Abnormal [facility] Center[facility] CHEST 1 [id number] 14:52:09ORDERING PHYSICIAN: FAMILIA LOZA. HISTORY: chest pain TECHNIQUE: AP COMPARISON: 07/29/2022; CT chest report 05/17/2022 FINDINGS: Lungs: ?No focal consolidation is seen. Pleura: ?No effusion or pleural disease is seen. ?No pneumothorax. Mediastinum/Yessica: ?No masses or adenopathy. Heart: ?The heartis not enlarged. Other: ?No acute osseous abnormality is seen.[facility] TROPONIN [id number] 14:50:47* Test Item Value Reference Range Interpretation Comme [facility] TROPONIN I (test code = 6773844749) 0.006 ng/mL <=0.034 SERGIO (test code = SERGIO) Reference (Normal) Range (defined by the 99th percentile reference limit): <= 0.034 ng/mL Note: Cardiac troponin begins to rise 3-4 hours after the onset of ischemia. Repeat in 4-6 hours if the sample was drawn within 3-4 hours of the onset of the symptom and found normal. Diagnosis of myocardial injury is made with acute changes in cTn concentrations with at least one serial sample above the 99th percentile upper reference limit (URL), taken together with the patient's clinical presentation. Biotin has been reported to cause a negative bias, interpret results relative to patient's use of biotin. Lab Interpretation (test code = 65239-0) Normal [facility] CenterN-TERMINAL [id number] 14:48:25* Test Item Value Reference Range Interpretation Comme nts NT-proBNP (test code = 77461-3) 224 pg/mL <=125 SERGIO (test code = SERGIO) Result Indeterminate-Consid er causes of NT-proBNP elevation other than Heart failure such as acute coronary syndrome, pulmonary embolism, pulmonary hypertension, sepsis, stroke, and renal dysfunction. Lab Interpretation (test code = 96966-3) Abnormal [facility] CenterCOM. METABOLIC PANEL (42648)2023-12-31 14:39:04* Test Item Value Reference Range Interpretation Comme nts NA (test code = 9633848340) 138 mmol/L 135-145 K (test code = 3526990270) 4.0 mmol/L 3.5-5.0 CL (test code = 4232701196) 103 mmol/L 98-108 CO2 TOTAL (test code = 0299730875) 30 mmol/L 23-31 AGAP (test code = 4836560598) 5 2-16 BUN (test code = 6155932004) 7 mg/dL 7-23 GLUCOSE (test code = 8790611522) 209 mg/dL 70-110 H CREATININE (test code = 2160-0) 0.52 mg/dL 0.50-1.04 TOTAL BILI (test code = 8320621286) 0.5 mg/dL 0.1-1.1 CALCIUM (test code = 4238989890) 9.0 mg/dL 8.6-10.6 T PROTEIN (test code = 5624051871) 7.5 g/dL 6.3-8.2 ALBUMIN (test code = 9098622010) 4.3 g/dL 3.5-5.0 ALK PHOS (test code = 2644738918) 128 U/L 34-122 H ALTv (test code = 1742-6) 20 U/L 5-35 AST(SGOT) (test code = 9640910606) 31 U/L 13-40 eGFR (test code = 68891-8) 97.0 mL/min/1.73m2 CKD-EPI eGFR (2020). Assuming creatinine has been stable day-to-day for at least three months, the eGFR indicates Category G1 (>= 90 mL/min/1.73 m2) Lab Interpretation (test code = 85271-6) Abnormal [facility] WITH [id number] 14:27:03* Test Item Value Reference Range Interpretation Comme nts WBC (test code = 6690-2) 6.24 4.30-11.10 RBC (test code = 789-8) 4.79 3.93-5.25 HGB (test code = 718-7) 13.7 g/dL 11.6-15.0 HCT (test code = 4544-3) 40.8 % 35.7-45.2 MCV (test code = 787-2) 85.2 fL 80.6-95.5 MCH (test code = 785-6) 28.6 pg 25.9-32.8 MCHC (test code = 786-4) 33.6 g/dL 31.6-35.1 RDW-SD (test code = 81311-1) 38.8 fL 39.0-49.9 L RDW-CV (test code = 788-0) 12.5 % 12.0-15.5 PLT (test code = 777-3) 208 166-358 MPV (test code = 19739-3) 10.0 fL 9.5-12.9 NRBC/100 WBC (test code = 4753064598) 0.0 0.0-10.0 NRBC x10^3 (test code = 5995173120) See_Comment [Automated [employer]] The system which generated this result transmitted reference range: 10*3/?L. The reference range was not used to interpret this result as normal/abnormal. GRAN MAT (NEUT) % (test code = 770-8) 58.2 % IMM GRAN % (test code = 4973530096) 0.20 % LYMPH % (test code = 736-9) 31.7 % MONO % (test code = 5905-5) 5.8 % EOS % (test code = 713-8) 3.0 % BASO % (test code = 706-2) 1.1 % GRAN MAT x10^3(ANC) (test code = 0627561258) 3.63 10*3/uL 1.88-7.09 IMM GRAN x10^3 (test code = 1929588108) 0.00-0.06 LYMPH x10^3 (test code = 731-0) 1.98 10*3/uL 1.32-3.29 MONO x10^3 (test code = 742-7) 0.36 10*3/uL 0.33-0.92 EOS x10^3 (test code = 711-2) 0.19 10*3/uL 0.03-0.39 BASO x10^3 (test code = 704-7) 0.07 10*3/uL 0.01-0.07 Lab Interpretation (test code = 41246-2) Abnormal [facility] Molecular [id number] 13:42:07* Test Item Value Reference Range Interpretation Comme nts POCT Molecular FluA (test co de = 58342-7) Negative Negative POCT Molecular FluB (test co de = 57978-5) Negative Negative Lab Interpretation (test cod e = 84021-8) Normal [facility] SARS-COV-2 ANTIGEN (BINAX NOW)2023-07-15 15:54:00* Test Item Value Reference Range Interpretation Comme nts POCT SARS-COV-2 ANTIGEN (katie t code = 04753-5) Not Detected Not Detected On board controls acceptable with C Line (test code = 3574) Yes Lab Interpretation (test cod e = 51495-3) Normal [facility] SARS-COV-2 ANTIGEN (BINAX NOW)2023-07-15 15:54:00* Test Item Value Reference Range Interpretation Comme nts POCT SARS-COV-2 ANTIGEN (katie t code = 36957-9) Not Detected Not Detected On board controls acceptable with C Line (test code = 3574) Yes Lab Interpretation (test cod e = 29942-1) Normal [facility] SARS-COV-2 ANTIGEN (BINAX NOW)2023-03-21 17:16:00* Test Item Value Reference Range Interpretation Comme nts POCT SARS-COV-2 ANTIGEN (aktie t code = 54477-2) Not Detected Not Detected On board controls acceptable with C Line (test code = 3574) Yes [facility] MOLECULAR [id number] 17:14:25* Test Item Value Reference Range Interpretation Comme nts POCT Molecular Strep (test c ode = 72022-4) Negative Negative Lab Interpretation (test cod e = 32972-4) Normal [facility] Molecular [id number] 17:11:47* Test Item Value Reference Range Interpretation Comme nts POCT Molecular FluA (test co de = 81576-3) Positive Negative A Lab Interpretation (test cod e = 89327-8) Abnormal [facility] Urinalysis W Specific [id number] 15:45:00* Test Item Value Reference Range Interpretation Comme nts POCT U SP GRAV (test code = 3255) 1.020 mg/dl 1.005-1.025 POCT PH U (test code = 3254) 5 mg/dl 5-8 POCT U LEUK EST (test code = 3263) ++ Negative - Negative POCT U NIT (test code = 3262) neg Negative - Negative POCT U PROT (test code = 3259) trace Negative - Negative POCT U GLU (test code = 3256) normal Negative - Negative POCT U KETONE (test code = 3258) neg Negative - Negative POCT U UROBILI (test code = 3260) normal 0.2-1 POCT U BILI (test code = 3261) neg Negative - Negative POCT U BLD (test code = 3257) aboout 250 Negative - Negative POCT U COLOR (test code = 3266) dark yellow POCT U APPEAR (test code = 3267) cloudy SERGIO (test code = SERGIO) accurate developme nt and interpretation of all internal controls Lab Interpretation (test code = 27442-4) Normal [facility] Urinalysis W Specific [id number] 15:45:00* Test Item Value Reference Range Interpretation Comme nts POCT U SP GRAV (test code = 3255) 1.020 mg/dl 1.005-1.025 POCT PH U (test code = 3254) 5 mg/dl 5-8 POCT U LEUK EST (test code = 3263) ++ Negative - Negative POCT U NIT (test code = 3262) neg Negative - Negative POCT U PROT (test code = 3259) trace Negative - Negative POCT U GLU (test code = 3256) normal Negative - Negative POCT U KETONE (test code = 3258) neg Negative - Negative POCT U UROBILI (test code = 3260) normal 0.2-1 POCT U BILI (test code = 3261) neg Negative - Negative POCT U BLD (test code = 3257) aboout 250 Negative - Negative POCT U COLOR (test code = 3266) dark yellow POCT U APPEAR (test code = 3267) cloudy SERGIO (test code = SERGIO) accurate developme nt and interpretation of all internal controls Lab Interpretation (test code = 57846-6) Normal [facility] SARS-COV-2 ANTIGEN (BINAX NOW)2022-07-29 16:10:00* Test Item Value Reference Range Interpretation Comme nts POCT SARS-COV-2 ANTIGEN (katie t code = 10683-7) Not Detected Not Detected On board controls acceptable with C Line (test code = 3574) Yes Lab Interpretation (test cod e = 39122-4) [facility] MOLECULAR [id number] 16:06:48* Test Item Value Reference Range Interpretation Comme nts POCT Molecular FluA (test co de = 78865-0) Negative Negative POCT Molecular FluB (test co de = 55800-8) Negative Negative Lab Interpretation (test cod e = 24331-0) Normal [facility] MOLECULAR [id number] 15:59:33* Test Item Value Reference Range Interpretation Comme nts POCT Molecular Strep (test c ode = 22215-5) Negative Negative Lab Interpretation (test cod e = 14007-0) Normal [facility] GLUCOSE (AUTOMATED)2022-06-15 14:10:07* Test Item Value Reference Range Interpretation Comme nts POCT GLU (test code = 1660777239) 121 mg/dL 70-110 H Notified Provide r Lab Interpretation (test code = 24271-9) Abnormal [facility] (00514)2022-05-12 21:15:15* Test Item Value Reference Range Interpretation Comme nts NA (test code = 1478959593) 136 mmol/L 135-145 K (test code = 2661649039) 4.2 mmol/L 3.5-5.0 CL (test code = 7014120015) 99 mmol/L 98-108 CO2 TOTAL (test code = 5740480943) 29 mmol/L 23-31 AGAP (test code = 4805023806) 8 2-16 BUN (test code = 9373213974) 11 mg/dL 7-23 GLUCOSE (test code = 1372323177) 111 mg/dL 70-110 H CREATININE (test code = 3371470597) 0.58 mg/dL 0.50-1.04 TOTAL BILI (test code = 0305730820) 1.0 mg/dL 0.1-1.1 CALCIUM (test code = 9058699126) 9.6 mg/dL 8.6-10.6 T PROTEIN (test code = 6920597576) 8.0 g/dL 6.3-8.2 ALBUMIN (test code = 0965606669) 4.7 g/dL 3.5-5.0 ALK PHOS (test code = 4655755975) 110 U/L 34-122 ALTv (test code = 1742-6) 22 U/L 5-35 AST(SGOT) (test code = 2690137724) 30 U/L 13-40 eGFR (test code = 4091514331) 101.6 mL/min/1.73m2 SERGIO (test code = SERGIO) Association of Glomerular Filtration Rate (GFR) and Staging of Kidney Disease* + --+ --+ ------+| GFR (mL/min/1.73 m2) ?| With Kidney Damage ?| ?Without Kidney Damage+ --------+ --------+ +| ?>90 ?| ?Stage one ?| ? Normal ?+ ---+ ---+ -------+| ?60-89 ?| ?Stage two ?| ? Decreased GFR ? + --+ --+ ------+| ?30-59 ?| ?Stage three ?| ? Stage three ? + --+ --+ ------+| ?15-29 ?| ?Stage four ? | ? Stage four ?+ ---+ ---+ -------+| ?<15 (or dialysis) ? ?| ?Stage five ? | ? Stage five ?+ ---+ ---+ -------+ *Each stage assumes the associated GFR level has been in effect for at least three months. ?Stages 1 to 5, with or without kidney disease, indicate chronic kidney disease. Notes: Determination of stages one and two (with eGFR >59mL/min/1.73 m2) requires estimation of kidney damage for at least three months as defined by structural or functional abnormalities of the kidney, manifested by either:Pathological abnormalities or Markers of kidney damage (including abnormalities in the composition of the blood or urine or abnormalities in imaging tests). Lab Interpretation (test code = 49628-1) Abnormal [facility]. METABOLIC PANEL (17841)2022-05-12 21:15:15* Test Item Value Reference Range Interpretation Comme nts NA (test code = 3733127648) 136 mmol/L 135-145 K (test code = 4552364660) 4.2 mmol/L 3.5-5.0 CL (test code = 8802995435) 99 mmol/L 98-108 CO2 TOTAL (test code = 3257027939) 29 mmol/L 23-31 AGAP (test code = 6531703796) 8 2-16 BUN (test code = 8700149467) 11 mg/dL 7-23 GLUCOSE (test code = 7399147498) 111 mg/dL 70-110 H CREATININE (test code = 1807854491) 0.58 mg/dL 0.50-1.04 TOTAL BILI (test code = 9849174892) 1.0 mg/dL 0.1-1.1 CALCIUM (test code = 0566298584) 9.6 mg/dL 8.6-10.6 T PROTEIN (test code = 2610574291) 8.0 g/dL 6.3-8.2 ALBUMIN (test code = 3875761448) 4.7 g/dL 3.5-5.0 ALK PHOS (test code = 7078278698) 110 U/L 34-122 ALTv (test code = 1742-6) 22 U/L 5-35 AST(SGOT) (test code = 6579851815) 30 U/L 13-40 eGFR (test code = 7989552591) 101.6 mL/min/1.73m2 SERGIO (test code = SERGIO) Association of Glomerular Filtration Rate (GFR) and Staging of Kidney Disease* + --+ --+ ------+| GFR (mL/min/1.73 m2) ?| With Kidney Damage ?| ?Without Kidney Damage+ --------+ --------+ +| ?>90 ?| ?Stage one ?| ? Normal ?+ ---+ ---+ -------+| ?60-89 ?| ?Stage two ?| ? Decreased GFR ? + --+ --+ ------+| ?30-59 ?| ?Stage three ?| ? Stage three ? + --+ --+ ------+| ?15-29 ?| ?Stage four ? | ? Stage four ?+ ---+ ---+ -------+| ?<15 (or dialysis) ? ?| ?Stage five ? | ? Stage five ?+ ---+ ---+ -------+ *Each stage assumes the associated GFR level has been in effect for at least three months. ?Stages 1 to 5, with or without kidney disease, indicate chronic kidney disease. Notes: Determination of stages one and two (with eGFR >59mL/min/1.73 m2) requires estimation of kidney damage for at least three months as defined by structural or functional abnormalities of the kidney, manifested by either:Pathological abnormalities or Markers of kidney damage (including abnormalities in the composition of the blood or urine or abnormalities in imaging tests). Lab Interpretation (test code = 96771-1) [facility] 21:01:08* Test Item Value Reference Range Interpretation Comme nts HGB A1C (test code = 4548-4) 7.2 % 4.0-5.7 H SERGIO (test code = SERGIO) Reference RangesNormal: <5.7%Prediabetes: 5.7 - 6.4%Diabetes: > 6.5% Lab Interpretation (test code = 54118-9) [facility] [id number] 20:01:39* Test Item Value Reference Range Interpretation Comme nts WBC (test code = 6690-2) 7.97 See_Comment [Automated messa ge] The system which generated this result transmitted reference range: 4.30 - 11.10 10*3/?L. The reference range was not used to interpret this result as normal/abnormal. RBC (test code = 789-8) 4.81 See_Comment [Automated messa ge] The system which generated this result transmitted reference range: 3.93 - 5.25 10*6/?L. The reference range was not used to interpret this result as normal/abnormal. HGB (test code = 718-7) 13.3 g/dL 11.6-15.0 HCT (test code = 4544-3) 40.5 % 35.7-45.2 MCV (test code = 787-2) 84.2 fL 80.6-95.5 MCH (test code = 785-6) 27.7 pg 25.9-32.8 MCHC (test code = 786-4) 32.8 g/dL 31.6-35.1 RDW-SD (test code = 79255-4) 39.9 fL 39.0-49.9 RDW-CV (test code = 788-0) 13.0 % 12.0-15.5 PLT (test code = 777-3) 208 See_Comment [Automated messa ge] The system which generated this result transmitted reference range: 166 - 358 10*3/?L. The reference range was not used to interpret this result as normal/abnormal. MPV (test code = 05834-6) 9.8 fL 9.5-12.9 NRBC/100 WBC (test code = 4475080643) 0.0 See_Comment [Automated [employer] ssage] The system which generated this result transmitted reference range: 0.0 - 10.0 /100 WBCs. The reference range was not used to interpret this result as normal/abnormal. NRBC x10^3 (test code = 1220239020) See_Comment [Automated messa ge] The system which generated this result transmitted reference range: 10*3/?L. The reference range was not used to interpret this result as normal/abnormal. GRAN MAT (NEUT) % (test code = 770-8) 65.7 % IMM GRAN % (test code = 1445138089) 0.40 % LYMPH % (test code = 736-9) 21.8 % MONO % (test code = 5905-5) 8.8 % EOS % (test code = 713-8) 1.9 % BASO % (test code = 706-2) 1.4 % GRAN MAT x10^3(ANC) (test code = 8116715931) 5.24 10*3/uL 1.88-7.09 IMM GRAN x10^3 (test code = 6714327279) 0.03 10*3/uL 0.00-0.06 LYMPH x10^3 (test code = 731-0) 1.74 10*3/uL 1.32-3.29 MONO x10^3 (test code = 742-7) 0.70 10*3/uL 0.33-0.92 EOS x10^3 (test code = 711-2) 0.15 10*3/uL 0.03-0.39 BASO x10^3 (test code = 704-7) 0.11 10*3/uL 0.01-0.07 H Lab Interpretation (test code = 28774-0) Abnormal [facility] WITH [id number] 20:01:39* Test Item Value Reference Range Interpretation Comme nts WBC (test code = 6690-2) 7.97 See_Comment [Automated messa ge] The system which generated this result transmitted reference range: 4.30 - 11.10 10*3/?L. The reference range was not used to interpret this result as normal/abnormal. RBC (test code = 789-8) 4.81 See_Comment [Automated messa ge] The system which generated this result transmitted reference range: 3.93 - 5.25 10*6/?L. The reference range was not used to interpret this result as normal/abnormal. HGB (test code = 718-7) 13.3 g/dL 11.6-15.0 HCT (test code = 4544-3) 40.5 % 35.7-45.2 MCV (test code = 787-2) 84.2 fL 80.6-95.5 MCH (test code = 785-6) 27.7 pg 25.9-32.8 MCHC (test code = 786-4) 32.8 g/dL 31.6-35.1 RDW-SD (test code = 81814-9) 39.9 fL 39.0-49.9 RDW-CV (test code = 788-0) 13.0 % 12.0-15.5 PLT (test code = 777-3) 208 See_Comment [Automated [employer]] The system which generated this result transmitted reference range: 166 - 358 10*3/?L. The reference range was not used to interpret this result as normal/abnormal. MPV (test code = 54692-0) 9.8 fL 9.5-12.9 NRBC/100 WBC (test code = 1077990989) 0.0 See_Comment [Automated [employer] ssage] The system which generated this result transmitted reference range: 0.0 - 10.0 /100 WBCs. The reference range was not used to interpret this result as normal/abnormal. NRBC x10^3 (test code = 2830992107) See_Comment [Automated [employer]] The system which generated this result transmitted reference range: 10*3/?L. The reference range was not used to interpret this result as normal/abnormal. GRAN MAT (NEUT) % (test code = 770-8) 65.7 % IMM GRAN % (test code = 8417261133) 0.40 % LYMPH % (test code = 736-9) 21.8 % MONO % (test code = 5905-5) 8.8 % EOS % (test code = 713-8) 1.9 % BASO % (test code = 706-2) 1.4 % GRAN MAT x10^3(ANC) (test code = 5878112936) 5.24 10*3/uL 1.88-7.09 IMM GRAN x10^3 (test code = 0789414535) 0.03 10*3/uL 0.00-0.06 LYMPH x10^3 (test code = 731-0) 1.74 10*3/uL 1.32-3.29 MONO x10^3 (test code = 742-7) 0.70 10*3/uL 0.33-0.92 EOS x10^3 (test code = 711-2) 0.15 10*3/uL 0.03-0.39 BASO x10^3 (test code = 704-7) 0.11 10*3/uL 0.01-0.07 H Lab Interpretation (test code = 07535-5) Abnormal [facility] GLUCOSE (AUTOMATED)2022-01-24 17:21:26* Test Item Value Reference Range Interpretation Comme nts POCT GLU (test code = 5576418312) 93 mg/dL 70-110 Lab Interpretation (test cod e = 19137-2) Normal [facility] GLUCOSE (AUTOMATED)2022-01-24 12:59:55* Test Item Value Reference Range Interpretation Comme nts POCT GLU (test code = 2018066193) 100 mg/dL 70-110 Lab Interpretation (test cod e = 95375-8) Normal [facility] GLUCOSE (AUTOMATED)2022-01-24 01:44:29* Test Item Value Reference Range Interpretation Comme nts POCT GLU (test code = 6701186902) 165 mg/dL 70-110 H Lab Interpretation (test cod e = 57272-4) Abnormal [facility] GLUCOSE (AUTOMATED)2022-01-23 22:18:04* Test Item Value Reference Range Interpretation Comme nts POCT GLU (test code = 2101339479) 133 mg/dL 70-110 H Lab Interpretation (test cod e = 12459-8) [facility] 22:11:36* Test Item Value Reference Range Interpretation Comme nts Height (test code = 5151502145) in Weight (test code = 2795634312) lbs Systolic BP (test code = 7648085861) mmHg Diastolic BP (test code = 5897655849) mmHg Heart Rate (test code = 9784950845) bpm BSA (test code = 2357622763) 1.55 m2 LVIDD (test code = 9963580943) 3.70 cm Left Ventricular End Diastolic Volume by Teichholz Method (test code = 3517007) 58.4 mL IVS (test code = 0260482465) 0.88 cm Interventricular Septum Diastolic Thickness by 2D (test code = 0429448) 0.88 cm LVPWD (test code = 6872212014) 0.83 cm PW (test code = 9925249302) 0.83 cm 0.6-1.1 EF(Teich) (test code = 3180335100) 54.70 % LVIDS (test code = 8548988031) 2.70 cm Left Ventricular End Systolic Volume by Teichholz Method (test code = 0215291) 26.4 mL FS (test code = 0216129205) 28 % EF - 2D (test code = 43880401) 54.70 % LVOT diameter (test code = 3273278602) 1.84 cm LVOT area (test code = 6269166233) 2.70 cm2 ACS (test code = 9625956245) 1.70 cm Ao root diam (test code = 6837304932) 2.90 cm Aortic root (test code = 9266714867) 2.9 cm Ao root annulus (test code = 5140453234) 2.9 cm LA size (test code = 2515960677) 3.1 cm E wave decelartion time (test code = 8978525062) 0.19 s MV Peak E Dilma (test code = 9198419120) 84.2 cm/s MV Peak A Dilma (test code = 5296251387) 111.4 cm/s E/A ratio (test code = 3505572334) ratio MV Prop V (test code = 1628361303) 40.80 cm/s Tapse (test code = 7495358903) 1.67 cm TR Peak Dilma (test code = 4885069569) 183.0 cm/s Triscuspid Valve Regurgitation Peak Gradient (test code = 1985368153) mmHg LVOT stroke volume (test code = 1946156999) 47.10 cm3 LVOT peak dilma (test code = 0919118751) 86.8 cm/s LVOT mn grad (test code = 3795886435) mmHg AV LVOT peak gradient (test code = 5827827141) mmHg LVOT peak VTI (test code = 2982067484) 17.7 cm LV V1 mean (test code = 8002267301) 56.10 cm/s Aortic valve mean velocity (test code = 0257839955) 100.8 cm/s Ao peak dilma (test code = 8235223002) 139.7 cm/s Ao VTI (test code = 0241871634) 29.4 cm AV area by cont VTI (test code = 1023163008) 1.6 cm2 AV area peak dilma (test code = 7886115133) 1.7 cm2 Ao max PG (test code = 4460138761) 7.80 mm[Hg] AV peak gradient (test code = 1087731212) mmHg AV valve area (test code = 3621238642) 1.60 cm2 AV mean gradient (test code = 8600328446) mmHg Radiology Study observation (narrative) (test code = 01700-4) SERGIO (test code = SERGIO) ?Left?Ventricle: Left ventricle size is normal. Normal wall thickness. Normal wall motion. Normal systolic function with a visually estimated EF of 55 - 60%. ?Right?Ventricle: Right ventricle size is normal. Normal systolic function. ?Left?Atrium: Left atrium size is normal. ?Aortic?Valve: Aortic valve structure is normal. ?Pulmonic?Valve: Not well visualized. Pulmonic valve is normal in structure and function. ?Mitral?Valve: Mitral valve structure is normal. ?Tricuspid?Valve: Tricuspid valve structure is normal. Physiologically normal transvalvular regurgitation. Right ventricular systolic pressure is normal. ?RA pressure is 0-5 mmHg. ?Aorta: Normal sized aorta. Left VentricleLeft ventricle size is normal. Normal wall thickness. Normal wall motion. Normal systolic function with a visually estimated EF of 55 - 60%. There is impaired relaxation.Right VentricleRight ventricle size is normal. Normal systolic function.Left AtriumLeft atrium size is normal.Right AtriumRight atrium size is normal.Mitral ValveMitral valve structure is normal. Trace transvalvular regurgitation.Tricuspi d ValveTricuspid valve structure is normal. Physiologically normal transvalvular regurgitation. Right ventricular systolic pressure is normal. RA pressure is 0-5 mmHg.Aortic ValveAortic valve structure is normal. No transvalvular regurgitation.Pulmonic ValveNot well visualized. Pulmonic valve is normal in structure and function. Trace transvalvular regurgitation.Ascendin g AortaNormal sized aorta.PericardiumThe pericardium is normal. No pericardial effusion.Study DetailsStudy quality was adequate. A complete echocardiogram was performed using 2D, color flow Doppler and spectral Doppler. The apical, parasternal and subcostal views were obtained. [facility] GLUCOSE (AUTOMATED)2022-01-23 17:34:13* Test Item Value Reference Range Interpretation Comme nts POCT GLU (test code = 7616086048) 177 mg/dL 70-110 H Lab Interpretation (test cod e = 86669-8) [facility] 17:34:07* Test Item Value Reference Range Interpretation Comme nts POCT GLU (test code = 9464201693) 137 mg/dL 70-110 H Lab Interpretation (test cod e = 09774-4) Abnormal [facility] GLUCOSE (AUTOMATED)2022-01-23 01:58:12* Test Item Value Reference Range Interpretation Comme nts POCT GLU (test code = 5372459460) 211 mg/dL 70-110 H Lab Interpretation (test cod e = 08008-8) Abnormal [facility] GLUCOSE (AUTOMATED)2022-01-22 21:15:52* Test Item Value Reference Range Interpretation Comme nts POCT GLU (test code = 4353310552) 186 mg/dL 70-110 H Lab Interpretation (test cod e = 39464-2) Abnormal [facility] GLUCOSE (AUTOMATED)2022-01-22 16:57:32* Test Item Value Reference Range Interpretation Comme nts POCT GLU (test code = 3799928284) 174 mg/dL 70-110 H Lab Interpretation (test cod e = 36387-3) Abnormal [facility] GLUCOSE (AUTOMATED)2022-01-22 12:47:55* Test Item Value Reference Range Interpretation Comme nts POCT GLU (test code = 6267280195) 135 mg/dL 70-110 H Lab Interpretation (test cod e = 78976-7) Abnormal [facility] GLUCOSE (AUTOMATED)2022-01-22 01:45:03* Test Item Value Reference Range Interpretation Comme nts POCT GLU (test code = 6366665903) 176 mg/dL 70-110 H Lab Interpretation (test cod e = 89012-4) [facility]normal [id number] 23:49:39* Test Item Value Reference Range Interpretation Comments D-DIMER (test code = 2784081277) See_Comment H [Automated message] The system which generated this result transmitted reference range: <0.41 ?g/mL (FEU). The reference range was not used to interpret this result as normal/abnormal. SERGIO (test code = SERGIO) This test may be used in conjunction with a clinical pretest probability (PTP) assessment model to exclude venous thromboembolism (VTE) in patients suspected of deep venous thrombosis (DVT) and pulmonary embolism (PE) A D-Dimer value less than 0.50 ?g/ml (FEU) has a negative predicative value of 96 to 100% (95% CI)and 97 to 100% (95% CI) as an aid in the diagnosis of deep vein thrombosis (DVT) and pulmonary embolism when there is low or moderate pretest probability of PE or DVT. D-Dimer values are expressed in initial fibrinogen equivalent units (FEU)" The assay results should be used with other information, including the clinical context, in forming a diagnosis. Lab Interpretation (test code = 90500-1) [facility]normal [facility] [id number] 23:22:17* Test Item Value Reference Range Interpretation Comments TROPONIN I (test code = 6487019752) 0.002 ng/mL See_Comment [Automated message] The system which generated this result transmitted reference range: <=0.034. The reference range was not used to interpret this result as normal/abnormal. SERGIO (test code = SERGIO) Reference (Normal) Range (defined by the 99th percentile reference limit): <= 0.034 ng/mL Note: Cardiac troponin begins to rise 3-4 hours after the onset of ischemia. Repeat in 4-6 hours if the sample was drawn within 3-4 hours of the onset of the symptom and found normal. Diagnosis of myocardial injury is made with acute changes in cTn concentrations with at least one serial sample above the 99th percentile upper reference limit (URL), taken together with the patient's clinical presentation. Biotin has been reported to cause a negative bias, interpret results relative to patient's use of biotin. Lab Interpretation (test code = 45705-5) Normal [facility] [id number] 23:18:56* Test Item Value Reference Range Interpretation Comme nts NT-proBNP (test code = 9120156059) 218 pg/mL See_Comment H [Automated message] The system which generated this result transmitted reference range: <=125. The reference range was not used to interpret this result as normal/abnormal. SERGIO (test code = SERGIO) Biotin has been reported to cause a negative bias, interpret results relative to patient's use of biotin. Lab Interpretation (test code = 44225-9) [facility]normal [facility] CenterL[facility] (08454)(TOTAL CHOLESTEROL, TRIGLYCERIDES, HDL)2022-01-21 23:09:59* Test Item Value Reference Range Interpretation Comme nts CHOL (test code = 2244266841) 141 mg/dL 120-200 HDL (test code = 4670950120) 39 mg/dL See_Comment L [Automated messa ge] The system which generated this result transmitted reference range: >=50. The reference range was not used to interpret this result as normal/abnormal. HDLC RATIO (test code = 1127796051) See_Comment [Automated messa ge] The system which generated this result transmitted reference range: <=4.5. The reference range was not used to interpret this result as normal/abnormal. TRIG (test code = 9524717655) 238 mg/dL 30-170 H LDL CHOL (test code = 32961-2) 54 mg/dL See_Comment [Automated messa ge] The system which generated this result transmitted reference range: <=160. The reference range was not used to interpret this result as normal/abnormal. VLDL (test code = 2835123335) 48 mg/dL 5-60 Lab Interpretation (test code = 83607-1) Abnormal [facility] GLUCOSE (AUTOMATED)2022-01-21 22:02:27* Test Item Value Reference Range Interpretation Comme nts POCT GLU (test code = 4690015536) 145 mg/dL 70-110 H Lab Interpretation (test cod e = 38820-4) Abnormal [facility] GLUCOSE (AUTOMATED)2022-01-21 16:55:50* Test Item Value Reference Range Interpretation Comme nts POCT GLU (test code = 7630092755) 120 mg/dL 70-110 H Lab Interpretation (test cod e = 31795-9) Abnormal [facility] GLUCOSE (AUTOMATED)2022-01-21 12:42:09* Test Item Value Reference Range Interpretation Comme nts POCT GLU (test code = 1986040485) 164 mg/dL 70-110 H Lab Interpretation (test cod e = 32930-5) Abnormal [facility] GLUCOSE (AUTOMATED)2022-01-21 10:05:48* Test Item Value Reference Range Interpretation Comme nts POCT GLU (test code = 4551614911) 112 mg/dL 70-110 H Lab Interpretation (test cod e = 40818-6) Abnormal [facility] GLUCOSE (AUTOMATED)2022-01-21 10:05:47* Test Item Value Reference Range Interpretation Comme nts POCT GLU (test code = 9666456059) 227 mg/dL 70-110 H Lab Interpretation (test cod e = 11162-6) Abnormal [facility] GLUCOSE (AUTOMATED)2022-01-21 01:47:31* Test Item Value Reference Range Interpretation Comme nts POCT GLU (test code = 5050590268) 185 mg/dL 70-110 H Lab Interpretation (test cod e = 92868-9) Abnormal [facility] GLUCOSE (AUTOMATED)2022-01-20 12:38:06* Test Item Value Reference Range Interpretation Comme nts POCT GLU (test code = 5558050485) 160 mg/dL 70-110 H Lab Interpretation (test cod e = 05406-1) Abnormal [facility] METABOLIC PANEL (NA, K, CL, CO2, GLUCOSE, BUN, CREATININE, CA)2022-01-20 03:18:07* Test Item Value Reference Range Interpretation Comme nts NA (test code = 0117871579) 139 mmol/L 135-145 K (test code = 2560757607) 3.8 mmol/L 3.5-5.0 CL (test code = 9014064541) 102 mmol/L 98-108 CO2 TOTAL (test code = 2267647653) 26 mmol/L 23-31 AGAP (test code = 3310400138) 2-16 BUN (test code = 5019492012) 13 mg/dL 7-23 GLUCOSE (test code = 4295331628) 145 mg/dL 70-110 H CREATININE (test code = 6846566846) 0.73 mg/dL 0.50-1.04 CALCIUM (test code = 4843987209) 9.3 mg/dL 8.6-10.6 eGFR (test code = 7298488526) mL/min/1.73m2 SERGIO (test code = SERGIO) Association of Glomerular Filtration Rate (GFR) and Staging of Kidney Disease* + --+ --+ ------+| GFR (mL/min/1.73 m2) ?| With Kidney Damage ?| ?Without Kidney Damage+ --------+ --------+ +| ?>90 ?| ?Stage one ?| ? Normal ?+ ---+ ---+ -------+| ?60-89 ?| ?Stage two ?| ? Decreased GFR ? + --+ --+ ------+| ?30-59 ?| ?Stage three ?| ? Stage three ? + --+ --+ ------+| ?15-29 ?| ?Stage four ? | ? Stage four ?+ ---+ ---+ -------+| ?<15 (or dialysis) ? ?| ?Stage five ? | ? Stage five ?+ ---+ ---+ -------+ *Each stage assumes the associated GFR level has been in effect for at least three months. ?Stages 1 to 5, with or without kidney disease, indicate chronic kidney disease. Notes: Determination of stages one and two (with eGFR >59mL/min/1.73 m2) requires estimation of kidney damage for at least three months as defined by structural or functional abnormalities of the kidney, manifested by either:Pathological abnormalities or Markers of kidney damage (including abnormalities in the composition of the blood or urine or abnormalities in imaging tests). Lab Interpretation (test code = 50071-2) Abnormal [facility] WITH [id number] 02:43:54* Test Item Value Reference Range Interpretation Comme nts WBC (test code = 6690-2) See_Comment H [Automated [employer]] The system which generated this result transmitted reference range: 4.30 - 11.10 10*3/?L. The reference range was not used to interpret this result as normal/abnormal. RBC (test code = 789-8) See_Comment [Automated [employer]] The system which generated this result transmitted reference range: 3.93 - 5.25 10*6/?L. The reference range was not used to interpret this result as normal/abnormal. HGB (test code = 718-7) 13.3 g/dL 11.6-15.0 HCT (test code = 4544-3) 38.1 % 35.7-45.2 MCV (test code = 787-2) 81.4 fL 80.6-95.5 MCH (test code = 785-6) 28.4 pg 25.9-32.8 MCHC (test code = 786-4) 34.9 g/dL 31.6-35.1 RDW-SD (test code = 63029-5) 38.4 fL 39.0-49.9 L RDW-CV (test code = 788-0) 13.0 % 12.0-15.5 PLT (test code = 777-3) See_Comment [Automated [employer]] The system which generated this result transmitted reference range: 166 - 358 10*3/?L. The reference range was not used to interpret this result as normal/abnormal. MPV (test code = 16409-3) 9.7 fL 9.5-12.9 NRBC/100 WBC (test code = 3319276581) See_Comment [Automated [employer] ssage] The system which generated this result transmitted reference range: 0.0 - 10.0 /100 WBCs. The reference range was not used to interpret this result as normal/abnormal. NRBC x10^3 (test code = 6666640590) See_Comment [Automated [employer]] The system which generated this result transmitted reference range: 10*3/?L. The reference range was not used to interpret this result as normal/abnormal. GRAN MAT (NEUT) % (test code = 770-8) 60.9 % IMM GRAN % (test code = 9295147917) 1.00 % LYMPH % (test code = 736-9) 29.5 % MONO % (test code = 5905-5) 5.4 % EOS % (test code = 713-8) 2.2 % BASO % (test code = 706-2) 1.0 % GRAN MAT x10^3(ANC) (test code = 6380880857) 7.02 10*3/uL 1.88-7.09 IMM GRAN x10^3 (test code = 4998864805) 0.12 10*3/uL 0.00-0.06 H LYMPH x10^3 (test code = 731-0) 3.41 10*3/uL 1.32-3.29 H MONO x10^3 (test code = 742-7) 0.63 10*3/uL 0.33-0.92 EOS x10^3 (test code = 711-2) 0.26 10*3/uL 0.03-0.39 BASO x10^3 (test code = 704-7) 0.12 10*3/uL 0.01-0.07 H Lab Interpretation (test code = 98093-0) [facility] (BINAX NOW)2021-11-21 14:28:00* Test Item Value Reference Range Interpretation Comme nts POCT SARS-COV-2 ANTIGEN (katie t code = 5076) Positive Not Detected A On board controls acceptable with C Line (test code = 3574) Yes Lab Interpretation (test cod e = [id number]) Abnormal [facility] Consult Notes Date/Time Note Provider Source 2023-12-31 21:43:02 Associated Order(s): CONSULT CARDIOLOGY [facility] Cardiology Consult Note Patient: Maria E Bah Date of : 1950 Date of service: 12/31/2023 Primary Care Physician: Di Richards CHIEF COMPLAINT: Chief Complaint Patient presents with Chest Pain HISTORY OF PRESENT ILLNESS: Maria E Bah is a 73 year old female presented to the ER for evaluation for chest pain. History from patient. Pertinent cardiac related history reviewed from chart Cardiac risk factors include history of a CAD status post PCI with 3 stents 15 years ago, hypertension, dyslipidemia, postmenopausal female. The patient reports she has been having chest pain in the inframammal region on the left side and also mammal region that's been going on since Sunday. It was persistent. Initially, it got better with Aleve. Since it was persistent for last 3 to 4 duration, she decided to come to the ER for the evaluation management of the chest pain. She describes increases with coughing and also with deep inspiration and also with palpation and also with movement with the left shoulder. PHAM NYHA class 2 has been stable. Reports compliance with medication. No PND or orthopnea. No pedal edema. No exertional palpitations or palpitations at rest. No syncopal attacks. 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 Social Determinants of Health Financial Resource Strain: Low Risk (12/04/2023) Overall Financial Resource Strain (CARDIA) Difficulty of Paying Living Expenses: Not very hard Food Insecurity: No Food Insecurity (12/04/2023) Hunger Vital Sign Worried About Running Out of Food in the Last Year: Never true Ran Out of Food in the Last Year: Never true Transportation Needs: No Transportation Needs (12/04/2023) PRAPARE - Transportation Lack of Transportation (Medical): No Lack of Transportation (Non-Medical): No Physical Activity: Insufficiently Active (12/04/2023) Exercise Vital Sign Days of Exercise per Week: 3 days Minutes of Exercise per Session: 20 min Housing Stability: Low Risk (12/04/2023) Housing Stability Vital Sign Unable to Pay for Housing in the Last Year: No Number of Places Lived in the Last Year: 1 Unstable Housing in the Last Year: No ALLERGIES Allergies Allergen Reactions Penicillins Anaphylaxis and Rash MEDICATIONS Current Discharge Medication List STOP taking these medications albuterol 90 mcg/actuation inhaler Comments: Reason for Stopping: atorvastatin 20 mg tablet Comments: Reason for Stopping: metFORMIN 500 mg tablet Comments: Reason for Stopping: alendronate 70 mg tablet Comments: Reason for Stopping: clopidogreL 75 mg tablet Comments: Reason for Stopping: PANTOPRAZOLE 40 mg EC tablet Comments: Reason for Stopping: acetaminophen (TYLENOL ARTHRITIS PAIN) 650 mg CR tablet Comments: Reason for Stopping: clonazePAM 0.25 mg disintegrating tablet Comments: Reason for Stopping: Current Facility-Administered Medications: acetaminophen (TYLENOL) tablet 650 mg, 650 mg, Oral, Q6HPRN, Jb Alicea DO [START ON 01/06/2024] alendronate (FOSAMAX) tablet 70 mg, 70 mg, Oral, QWEEKLY, Alpa Hancock MD [START ON 01/01/2024] aspirin chewable tablet 81 mg, 81 mg, Oral, DAILY, Jb Alicea DO [START ON 01/01/2024] atorvastatin (LIPITOR) tablet 20 mg, 20 mg, Oral, QPM, Alpa Hancock MD clonazePAM (KLONOPIN) tablet 0.25 mg, 0.25 mg, Oral, [id number], Alpa Hancock MD [START ON 01/01/2024] clopidogreL (PLAVIX) 75 mg tablet 75 mg, 75 mg, Oral, DAILY, Alpa Hancock MD codeine-guaifenesin (ROBITUSSIN AC) 10-100 mg/5 mL oral solution 5 mL, 5 mL, Oral, Q6HPRN, Jb Alicea DO, 5 mL at 12/31/23 1833 dextrose 50 % in water (D50W) injection 25 mL, 25 mL, Slow IV Push, PRN, Jb Alicea DO enoxaparin (LOVENOX) injection 40 mg, 40 mg, Subcutaneous, DAILY, Jb Alicea DO, 40 mg at 12/31/23 1643 glucagon HCL injection 1 mg, 1 mg, Intramuscular, PRN, Jb Alicea DO morphine (2 mg/mL) injection 2 mg, 2 mg, Slow IV Push, Q4HPRN, Jb Alicea DO nicotine (NICODERM) 21 mg/24 hr patch 1 Patch, 1 Patch, Topical, Q24H, Yulia Garcia, [place], 1 Patch at 12/31/23 1644 ondansetron (ZOFRAN (PF)) injection 4 mg, 4 mg, Slow IV Push, Q6HPRN, Jb Alicea DO [START ON 01/01/2024] pantoprazole (PROTONIX) EC tablet 40 mg, 40 mg, Oral, DAILY, Alpa Hancock MD Sliding Scale Insulin - Lispro (HumaLOG), , Subcutaneous, TID MEALS+HS, Jb Alicea, , 1 Units at 12/31/232134 REVIEW OF SYSTEMS: Comprehensive 10-system review was conducted and were negative except for what's noted in the HPI. The following systems were reviewed: Constitutional, cardiovascular, respiratory, gastrointestinal, genitourinary, musculoskeletal, neurologic, psychiatric, endocrinological, and hematological. PHYSICAL EXAMINATION: Vitals: 12/31/23 1307 12/31/23 1318 12/31/23 1516 12/31/23 1913 BP: (!) 140/67 135/70 113/59 Pulse: 82 81 85 Resp: 18 18 18 Temp: 36.1 ?C (97 ?F) 36.2 ?C (97.2 ?F) 36.6 ?C (97.9 ?F) TempSrc: SpO2: 97% 94% 92% Weight: 53 kg (116 lb 12.8 oz) 53 kg (116 lb 12.8 oz) Height: 1.524 m (5') General: no apparent distress HEENT: normocephalic atraumatic Neck: supple, no lymphadenopathy, no bruits, no JVD Lungs: clear to auscultation bilaterally. No wheezes or rhonchi. No increased work of breathing. Cardio: Regular rate and rhythm, S1&S2 normal, no murmurs, rubs or gallops Abdomen: soft; non-tender; non-distended; normoactive bowel sounds. : not examined Rectal: not examined Extremities: no clubbing, cyanosis, or edema. Skin: no rashes, no visible lesions. Neuro: no gross focal deficits LABS - Reviewed pertinent labs as below: CBC BMP PT/INR WBC (10*3/?L) Date Value 12/31/2023 6.24 NA (mmol/L) Date Value 12/31/2023 138 No results found for: "PT" PLT (10*3/?L) Date Value 12/31/2023 208 K (mmol/L) Date Value 12/31/2023 4.0 No results found for: "PTINR" HGB (g/dL) Date Value 12/31/2023 13.7 BUN (mg/dL) Date Value 12/31/2023 7 HCT (%) Date Value 12/31/2023 40.8 CREATININE (mg/dL) Date Value 12/31/2023 0.52 LIPID PROFILE GLUCOSE (mg/dL) Date Value 12/31/2023 209 (H) CHOL (mg/dL) Date Value 05/15/2023 153 TSH LDL CHOL (mg/dL) Date Value 05/15/2023 67 TSH (mIU/L) Date Value 05/15/2023 1.30 CARDIAC ENZYMES HDL (mg/dL) Date Value 05/15/2023 48 (L) No results found for: "CK" TRIG (mg/dL) Date Value 05/15/2023 188 (H) LFTs No results found for: "CKMB" AST(SGOT) (U/L) Date Value 12/31/2023 31 TROPONIN I (ng/mL) Date Value 12/31/2023 0.003 ALTv (U/L) Date Value 12/31/2023 20 No results found for: "BNP" LDL CHOL (mg/dL) Date Value 05/15/2023 67 Recent Labs 12/31/23 1655 TROPNI 0.003 Recent Labs 05/15/23 1053 TRIG 188* LDL CHOL (mg/dL) Date Value 05/15/2023 67 NT-proBNP (pg/mL) Date Value 12/31/2023 224 01/22/2022 331 (H) ASSESSMENT/PLAN Principal Problem: Chest pain, unspecified type Active Problems: Type 2 diabetes mellitus with other specified complication Coronary artery disease involving kiana coronary artery of kiana heart without angina pectoris PAD (peripheral artery disease) Primary hypertension Dyslipidemia Atypical chest pain: Recommended serial troponins x3, aspirin, EKG and AM tomorrow followed by an echocardiogram to assess for underlying LVEF, diastolic function and also valve abnormalities. Recommended if the serial troponins have been negative, patient can be discharged from the cardiac standpoint in the morning. Follow-up with primary foreign exchange services manager for outpatient evaluation, stress test. EKG, dated 12/31/2023 shows sinus rhythm, narrow QRS complex, nonspecific ST changes, PVCs noted. Telemetry did not show any significant arrhythmias. Relevant labs from today: Repeat shows troponin x1 negative. Recent Labs 12/31/23 0901 12/31/23 1655 TROPNI 0.006 0.003 NT-proBNP (pg/mL) Date Value 12/31/2023 224 01/22/2022 331 (H) CAD status post PCI: Continue with aspirin daily, Lipitor 20 mg daily along with Plavix 75 daily Dyslipidemia: Continue with lipitor 20 mg daily. Recommended goal LDL less than 70. Hypertension: stable. Recommend to keep the blood pressure less than 130/80. T2DM: Rx/workup as per primary team Primary foreign exchange services manager: Dr. Lang Total Visit Time: 60 mins The total Visit time for today's visit with Maria E Bah encompassed 60 minutes. Time was spent reviewing the chart before, during and after the visit, reviewing laboratory results, taking interval history, performing the documented physical examination, completing and "cleaning up" the electronic medical record as well as addressing any questions and concerns. The time spent for patient care includes: PreCharting (eg, review of tests, notes, etc.), Obtaining and/or reviewing separately obtained history (Care Everywhere or paper records), Counseling and educating the patient/family/caregiver, Ordering medications, tests, or procedures, Ordering referrals and/or communicating with other health plant care worker (when not separately reported), Documenting clinical information in the electronic or other health record, and Independently interpreting results (not separately reported) and/or communicating results to the patient/family/caregiver. This report was dictated using InterEx and is subject to voice recognition errors. Please excuse any unusual inaccuracies. My diagnostic impression and treatment plans were discussed at length with the patient. All side effects as well as drug-drug interactions and risks discussed at length. Ample opportunity was offered and encouraged to ask questions during this visit and patient appreciated the answers given by me and verbzalised statisfcation in the answers given. Thank you for allowing us to participate in the care of Maria E Bah. If you have any questions or concerns please feel free to call our office at [phone]. I would be happy to be of further assistance for Maria E Bah wellbeing. Voice recognition software has been used to create portions of this document. An attempt to proofread has been made to minimize errors. Please do not hesitate to call with any questions. Natalio Trejo MD 12/31/2023 5:43 PM Transportation Maintenance Specialist, Division of Cardiology [facility] T [facility] - Health History and Physical Notes Date/Time Note Provider Source 2023-12-31 21:01:46 MEDICINE MEGAIA ADMIT H&P Date of Service: 12/31/2023 CHIEF COMPLAINT: chest pain Subjective History of Present Illness 73 yo female with multiple co-morbidities including CAD s/p PCI, anxiety, GERD, HTN, DM who presents to the ED secondary to constant, non-radiating chest pain for the past 5 days. She describes it as left sided chest pain. Associated symptoms: headache, sore throat, productive cough (white), palpation. Recently diagnosed with bronchitis. 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 Current Outpatient Medications on File Prior to Encounter Medication Sig Dispense Refill albuterol 90 mcg/actuation inhaler Inhale 2 Puffs every 6 (six) hours as needed for Wheezing or Shortness of Breath. 8.5 g 1 atorvastatin 20 mg tablet Take 1 tablet by mouth every evening. 90 tablet 1 benzonatate (TESSALON PERLES) 100 mg capsule Take 1 capsule by mouth every 8 (eight) hours as needed for Cough. 20 capsule 0 metFORMIN 500 mg tablet Take 1 tablet by mouth in the morning and 1 tablet in the evening. Take with meals. 180 tablet 1 HYDROcodone-acetaminophen 10-325 mg tablet TAKE ONE TABLET BY MOUTH FOUR TIMES DAILY NEEDED alendronate 70 mg tablet Take 1 tablet by mouth weekly. 12 tablet 0 clopidogreL 75 mg tablet TAKE 1 TABLET BY MOUTH EVERY DAY FOR 90 DAYS 90 tablet 1 PANTOPRAZOLE 40 mg EC tablet TAKE 1 TABLET BY MOUTH EVERY DAY 90 tablet 1 acetaminophen (TYLENOL ARTHRITIS PAIN) 650 mg CR tablet Take 1 tablet by mouth 2 (two) times daily as needed for Pain. 90 tablet 0 mupirocin 2 % ointment Apply to area(s) 3 (three) times daily. 22 g 0 clonazePAM 0.25 mg disintegrating tablet clonazepam 0.[address] 1 TABLET EVERY DAY BY TRANSLINGUAL ROUTE NEEDED FOR 28 DAYS. I attest that the foregoing medication list in the medical record is true, accurate and complete to the best of my knowledge. SOCIAL HISTORY Social History Socioeconomic History Marital status: Number of children: 5 Highest education level: 12th grade Tobacco Use Smoking status: Every Day Current packs/day: 0.50 Average packs/day: 0.5 packs/day for 40.0 years (20.0 ttl pk-yrs) Types: Cigarettes Smokeless tobacco: Never Substance and Sexual Activity Alcohol use: No Drug use: No Social History Narrative Pt is currently unemployed and lives in [place], [place]. Social Determinants of Health Financial Resource Strain: Low Risk (12/04/2023) Overall Financial Resource Strain (CARDIA) Difficulty of Paying Living Expenses: Not very hard Food Insecurity: No Food Insecurity (12/04/2023) Hunger Vital Sign Worried About Running Out of Food in the Last Year: Never true Ran Out of Food in the Last Year: Never true Transportation Needs: No Transportation Needs (12/04/2023) PRAPARE - Transportation Lack of Transportation (Medical): No Lack of Transportation (Non-Medical): No Physical Activity: Insufficiently Active (12/04/2023) Exercise Vital Sign Days of Exercise per Week: 3 days Minutes of Exercise per Session: 20 min Housing Stability: Low Risk (12/04/2023) Housing Stability Vital Sign Unable to Pay for Housing in the Last Year: No Number of Places Lived in the Last Year: 1 Unstable Housing in the Last Year: No REVIEW OF SYSTEMS Review of Systems Constitutional: Negative. HENT: Positive for sore throat. Negative for ear discharge, facial swelling and hearing loss. Eyes: Negative. Respiratory: Positive for cough (productive). Negative for apnea, choking, chest tightness, shortness of breath, wheezing and stridor. Breasts: Negative. Cardiovascular: Positive for chest pain (pleuritic) and palpitations. Negative for leg swelling. Gastrointestinal: Negative. Genitourinary: Negative. Musculoskeletal: Negative. Negative for neck pain and neck stiffness. Skin: Negative. Neurological: Positive for headaches. Negative for dizziness, tremors, seizures, syncope, facial asymmetry, speech difficulty, weakness, light-headedness and numbness. Psychiatric/Behavioral: Negative. Endocrine: Endocrine negative Objective PHYSICAL EXAMINATION Vitals: 12/31/23 1307 12/31/23 1318 12/31/23 1516 12/31/23 1913 BP: (!) 140/67 135/70 113/59 Pulse: 82 81 85 Resp: 18 18 18 Temp: 36.1 ?C (97 ?F) 36.2 ?C (97.2 ?F) 36.6 ?C (97.9 ?F) TempSrc: SpO2: 97% 94% 92% Weight: 116 lb 12.8 oz (53 kg) 116 lb 12.8 oz (53 kg) Height: 5' (1.524 m) Physical Exam Vitals and nursing note reviewed. Constitutional: General: She is not in acute distress. Appearance: Normal appearance. HENT: Head: Normocephalic and atraumatic. Right Ear: External ear normal. Left Ear: External ear normal. Nose: Nose normal. Eyes: General: No scleral icterus. Extraocular Movements: Extraocular movements intact. Conjunctiva/sclera: Conjunctivae normal. Pupils: Pupils are equal, round, and reactive to light. Cardiovascular: Rate and Rhythm: Normal rate and regular rhythm. Pulmonary: Effort: Pulmonary effort is normal. Breath sounds: Normal breath sounds. Abdominal: General: Abdomen is flat. Palpations: Abdomen is soft. Tenderness: There is no abdominal tenderness. There is no guarding. Musculoskeletal: General: Normal range of motion. Cervical back: Normal range of motion and neck supple. Right lower leg: No edema. Left lower leg: No edema. Neurological: Mental Status: She is alert. Psychiatric: Mood and Affect: Mood normal. Behavior: Behavior normal. Thought Content: Thought content normal. Judgment: Judgment normal. LABS/IMAGING - reviewed ORDERING PHYSICIAN: FAMILIA LOZA. HISTORY: chest pain TECHNIQUE: AP COMPARISON: 07/29/2022; CT chest report 05/17/2022 FINDINGS: Lungs: No focal consolidation is seen. Pleura: No effusion or pleural disease is seen. No pneumothorax. Mediastinum/Yessica: No masses or adenopathy. Heart: The heart is not enlarged. Other: No acute osseous abnormality is seen. IMPRESSION No acute process. Echocardiogram Left Ventricle: Left ventricle size is normal. Normal wall thickness. Normal wall motion. Right Ventricle: Right ventricle size is normal. Normal systolic function. Left Atrium: Left atrium size is normal. Aortic Valve: Aortic valve structure is normal. Pulmonic Valve: Pulmonic valve is normal in structure and function. Mitral Valve: Mitral valve structure is normal. Tricuspid Valve: Tricuspid valve structure is normal. Physiologically normal transvalvular regurgitation. Right ventricular systolic pressure is normal. RA pressure is 5-10 mmHg. Aorta: Normal sized aorta. Assessment & Plan Maria E Bah is a 73 year old female with PMH as listed above, admitted to the hospital with: 1. Chest pain atypical: So, far EKG and troponin are negative for an acute myocardial infarction. Appears to have a chest wall component of the pain. -- Will order pain control, oxygen, nitroglycerin prn, and aspirin. -- Will continue to trend the troponin -- Cardiology has been consulted. -- D dimer is pending 2. DM: -- Will continue with insulin sliding scale 3. HTN: normotensive 4. DM : -- Will continue with insulin sliding scale 5. Current smoker: spoke for greater than 3 minutes about smoking cessation. At this time, patient refuse smoking cessation therapy. Prophylaxis: DVT- enoxaparin Code Status: Full Code Estimated LOS: This inpatient admission will likely require greater than or equal to 2 Midnights. Management is not feasible as an outpatient and there is concern for adverse outcomes if not managed in an inpatient setting. Advance care planning discussed for 19 mins with patient at bedside. Surrogate decision maker: Arianne Mendez (child) - [facility] EM[facility]ENC[facility] PHYSICIAN STAFF [facility] Notes Date/Time Note Provider Source 2024-07-22 10:37:21 Recent Visits Date Type Provider Dept 06/09/24 Office Visit Di Richards MD [facility] 05/05/24 Office Visit Di Richards MD [facility] 01/09/24 Office Visit Di Richards MD [facility] 12/11/23 Office Visit Gelacio Blas FNP [facility] 05/15/23 Office Visit Gelacio Blas FNP [facility] 04/04/23 Office Visit Di Richards MD [facility] Showing recent visits within past 540 days with a meds authorizing provider and meeting all other requirements Future Appointments Date Type Provider Dept 12/09/24 Appointment Di Richards MD [facility] Showing future appointments within next 150 days with a meds authorizing provider and meeting all other requirements Last refill was Disp Refills Start End JAZZY METOCLOPRAMIDE HCL 10 mg tablet 30 tablet 0 07/04/2024 -- No Sig: TAKE ONE (1) TABLET BY MOUTH BEFORE MEALS AND AT BEDTIME T [facility] 2024-05-14 15:30:14 Patient requesting the medication to be sent to [facility], [facility] pending please review and send if appropriate. edicine [facility] 2024-05-14 15:14:44 Maria E Bah is a 74 year old female Patient is calling requesting a call back from the provider or nurse. Patient states he called this morning and still hasn't heard from anyone and she is still not feeling well. (See previous encounter for details, 05.14.24) I notified patient the medication metoclopramide HCl 10 mg tablet was sent to [facility] but patient said she stated she wanted the medication to be sent to [facility] not [facility]. Please advise [facility] [place], [place] - [address] [place] [address] AT [place] & [address] [place] [phone] RN Franky Gonzalez [facility] 2024-05-14 11:12:13 Please review and advise. MICHELLE 05/05/24 Rendon LVN [facility] 2024-05-14 11:04:47 Maria E Bah is a 74 year old female and the pts is calling to check on status of the medication that PCP stated he would prescribe to her in visit last week. Pt is still having symptoms of dizziness and the only thing that helps is Metoclopramide (Reglan) [facility] [place], [place] - [address] [place] [address] & Aure[address] [place] [phone] Callback # for questions or concerns #: [phone] Izzy Please contact and advise. Flores [facility] 2024-05-05 15:00:00 Addended by: DI RICHARDS MD on: 05/14/2024 03:12 PM Modules accepted: Orders edicine [facility] 2024-01-22 15:11:54 Please review, complete, and sign if appropriate. [facility] 2024-01-22 13:21:43 Patient is calling, requesting a referral to her foreign exchange services manager. Patient has an appointment on Wednesday 01/[address] Please advise. Dr. Lang Tyler Del Rio [facility] 2024-01-02 13:35:02 TRANSITIONAL CARE MANAGEMENT ASSESSMENT 01/02/2024 Maria E Bah [id number] Maria E Bah is a 73 year old /White female was admitted on 12/31/23 to [facility], [facility]. She was discharged on 01/01/24 with discharge disposition of HR- Routine Discharge. Admitting Physician: Jb Alicea Discharge Diagnosis: chest pain No linked episodes TCM [id number] outreach documentation: Discharge Assessment Chart Assessed: 01/02/24 TCM Outreach Completed: 01/02/24 Do you have a few minutes to speak with me about how you are doing at home?: Yes Discharge Instructions Do you understand your at-home instructions?: Yes Medications Have you filled your prescriptions and do you have them in your home? : Yes Do you know how to take your medications?: Yes Supplies Did you receive applicable home medical supplies/equipment?: N/A Follow Up Appointment Has a follow up appointment been scheduled?: Yes Do you have any questions about your follow up appointments?: No Are you able to get to your appointment? Who will be taking you?: Yes Home Health Assistance Has the home health nurse contacted you since you've been home?: N/A Survey - Recognition Is there anything you would like to share about your recent hospitalization, or anyone you would like to recognize?: No Do you have any suggestions for improvement?: No Do you have any other questions or concerns at this time?: No Future Appointments: Future Appointments Provider Department Dept Phone 01/07/2024 10:40 AM Abdirizak Laird MD [facility], [facility] [phone] 06/09/2024 9:30 AM Di Richards MD [facility], [facility] [phone] Billy Mike RN [facility] 2024-01-02 10:31:10 Care Transition CM made f/u call to pt post-discharge. No response and call went to voicemail. CM left a discreet message with purpose of call and CM's call back information. [facility] 2024-01-01 12:05:56 Problem: Falls, Risk of Goal: Absence of falls Outcome: Adequate for discharge Problem: Discharge Planning Goal: Adequate for discharge Outcome: Adequate for discharge Problem: Cardiac Output - Decreased Goal: Absence of signs and symptoms of decreased cardiac output Outcome: Adequate for discharge Problem: Pain Goal: Control of pain at or below patient's documented comfort goal Outcome: Adequate for discharge Goal: Reduction in pain sensation Outcome: Adequate for discharge Problem: Skin integrity Impaired (Risk or Actual) Goal: Prevention of new skin breakdown Outcome: Adequate for discharge Problem: Tissue Perfusion, Cardiopulmonary - Altered Goal: Circulatory function within specified parameters Outcome: Adequate for discharge Problem: Infection Risk Goal: Absence of infection Outcome: Adequate for discharge Saskia Desouza RN [facility] 2023-12-31 23:18:44 Problem: Falls, Risk of Goal: Absence of falls Outcome: Progressing as expected Problem: Discharge Planning Goal: Adequate for discharge Outcome: Progressing as expected Problem: Cardiac Output - Decreased Goal: Absence of signs and symptoms of decreased cardiac output Outcome: Progressing as expected Problem: Pain Goal: Control of pain at or below patient's documented comfort goal Outcome: Progressing as expected Goal: Reduction in pain sensation Outcome: Progressing as expected Problem: Skin integrity Impaired (Risk or Actual) Goal: Prevention of new skin breakdown Outcome: Progressing as expected Problem: Tissue Perfusion, Cardiopulmonary - Altered Goal: Circulatory function within specified parameters Outcome: Progressing as expected Problem: Infection Risk Goal: Absence of infection Outcome: Progressing as expected Nikhil Brown RN [facility] 2023-12-31 16:59:41 Problem: Falls, Risk of Goal: Absence of falls Outcome: Progressing as expected Problem: Discharge Planning Goal: Adequate for discharge Outcome: Progressing as expected Problem: Cardiac Output - Decreased Goal: Absence of signs and symptoms of decreased cardiac output Outcome: Progressing as expected Problem: Pain Goal: Control of pain at or below patient's documented comfort goal Outcome: Progressing as expected Goal: Reduction in pain sensation Outcome: Progressing as expected Problem: Skin integrity Impaired (Risk or Actual) Goal: Prevention of new skin breakdown Outcome: Progressing as expected Problem: Tissue Perfusion, Cardiopulmonary - Altered Goal: Circulatory function within specified parameters Outcome: Progressing as expected Problem: Infection Risk Goal: Absence of infection Outcome: Progressing as expected [facility] 2023-12-31 12:30:00 Nurse Report Report given to JASEN Alvarez. Chief complaint, assessment findings, infusion verify and orders reviewed. HAZEL CARSON RN Hazel Carson RN [facility] 2023-12-31 10:47:52 Nurse Report Report given to JASEN Oliva. Chief complaint, assessment findings, and orders reviewed. Plan of care discussed with both nurses. Maricarmen Winter RN Maricarmen Winter RN [facility] 2023-12-31 08:09:55 Maria E Bah is a 73 year old female c/o left sharp chest pain constant for 5 days, alert resp even u/l, skin w/dpink, smokes daily, type 2 DM uses pills, EKG in triage Shreya Thapa RN [facility] - [facility] 2023-12-31 08:05:00 Associated Order(s): EKG-12 Lead ROUTINE ONCE Pre-Procedure Diagnose(s): Chest pain, unspecified type Post-Procedure Diagnose(s): Chest pain, unspecified type [facility] Emergency Department Note Patient Name: Maria E Bah Date of : 1950 73 year old female Treatment Room: MO3/MO3 Primary Care Physician: Di Richards Patient Escorted by: Self [9] Mode of Arrival: Personal means [1] EMS Treatment Prior to ED Arrival: 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 She rated her pain a 6 on a scale of 0 to 10 and described it as sharp. She was found sitting in the ED exam area. She appears well, not toxic and does not seem to be in any apparent distress at this time. Patient denies any abdomen, back or neck pains, SOB, dizziness, headache, fever, chills, cough, sore throat, dysphagia, dysuria, hematuria, hemoptysis, nausea, vomiting or diarrhea. History provided by: Patient manager transfer used: No Past Medical History/Immunizations: Past Medical History: Diagnosis Date Age-related osteoporosis with current pathological fracture with routine healing Anxiety Chronic GERD Closed fracture of right wrist Closed right hip fracture Connective tissue disease Essential hypertension Lumbago Rheumatoid arthritis involving multiple sites Right leg pain 03/26/2008 Tobacco use disorder Type 2 diabetes mellitus without complication, without long-term current use of insulin Tetanus received in last 5 years: Unknown Childhood immunizations: Up-to-date Allergies: Allergies Allergen Reactions Penicillins Anaphylaxis and Rash Past Social History: Tobacco Use Every Day; 0.5 packs/day; Smoked an average of 0.5 packs/day for 40.0 years; Types: Cigarettes Smokeless Tobacco: Never used smokeless tobacco. Alcohol Use No. Drug Use No. 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 HENT: Negative. Eyes: Negative. Respiratory: Negative. Cardiovascular: Positive for chest pain. Negative for palpitations and leg swelling. Gastrointestinal: Negative. Genitourinary: Negative. Musculoskeletal: Negative. Skin: Negative. Neurological: Negative. Hematological: Negative for adenopathy. Bruises/bleeds easily. Endocrine: Endocrine negative Physical Exam: ED Triage Vitals [12/31/23 0810] Weight 52.2 kg (115 lb) Actual or estimated Estimated by patient/family report Height 1.524 m (5') BP (!) 127/95 Pulse 92 Resp 14 Temp 36.6 ?C (97.9 ?F) Temp source Oral SpO2 98 % Measured on Room air Physical Exam Vitals and nursing note reviewed. Constitutional: General: She is not in acute distress. Appearance: Normal appearance. She is normal weight. She is not ill-appearing, toxic-appearing or diaphoretic. HENT: Head: Normocephalic. Right Ear: External ear normal. Left Ear: External ear normal. Nose: Nose normal. Mouth/Throat: Mouth: Mucous membranes are moist. Eyes: General: No scleral icterus. Right eye: No discharge. Left eye: No discharge. Conjunctiva/sclera: Conjunctivae normal. Cardiovascular: Rate and Rhythm: Normal rate. Pulses: Normal pulses. Heart sounds: Normal heart sounds. No murmur heard. No friction rub. No gallop. Pulmonary: Effort: Pulmonary effort is normal. No respiratory distress. Breath sounds: Normal breath sounds. No stridor. No wheezing, rhonchi or rales. Chest: Chest wall: No tenderness. Abdominal: General: Bowel sounds are normal. There is no distension. Palpations: Abdomen is soft. There is no mass. Tenderness: There is no abdominal tenderness. There is no right CVA tenderness, left CVA tenderness, guarding or rebound. Hernia: No hernia is present. Musculoskeletal: General: No swelling, tenderness, deformity or signs of injury. Normal range of motion. Right lower leg: No edema. Left lower leg: No edema. Skin: General: Skin is warm and dry. Capillary Refill: Capillary refill takes less than 2 seconds. Coloration: Skin is not jaundiced or pale. Findings: No bruising, erythema, lesion or rash. Neurological: Mental Status: She is alert. Radiology: XR CHEST 1 VW Final Result ORDERING PHYSICIAN: FAMILIA LOZA. HISTORY: chest pain TECHNIQUE: AP COMPARISON: 07/29/2022; CT chest report 05/17/2022 FINDINGS: Lungs: No focal consolidation is seen. Pleura: No effusion or pleural disease is seen. No pneumothorax. Mediastinum/Yessica: No masses or adenopathy. Heart: The heart is not enlarged. Other: No acute osseous abnormality is seen. IMPRESSION No acute process. End of Report Lab Results: Lab Results CBC WITH DIFF - Abnormal Result Value Ref Range WBC 6.24 4.30 - 11.10 10*3/?L RBC 4.79 3.93 - 5.25 10*6/?L HGB 13.7 11.6 - 15.0 g/dL HCT 40.8 35.7 - 45.2 % MCV 85.2 80.6 - 95.5 fL MCH 28.6 25.9 - 32.8 pg MCHC 33.6 31.6 - 35.1 g/dL RDW-SD 38.8 (*) 39.0 - 49.9 fL RDW-CV 12.5 12.0 - 15.5 % PLT 208 166 - 358 10*3/?L MPV 10.0 9.5 - 12.9 fL NRBC/100 WBC 0.0 0.0 - 10.0 /100 WBCs NRBC x10 3 <0.01 10*3/?L GRAN MAT (NEUT) % 58.2 % IMM GRAN % 0.20 % LYMPH % 31.7 % MONO % 5.8 % EOS % 3.0 % BASO % 1.1 % GRAN MAT x10 3 (ANC) 3.63 1.88 - 7.09 10*3/uL IMM GRAN x10 3 <0.03 0.00 - 0.06 10*3/uL LYMPH x10 3 1.98 1.32 - 3.29 10*3/uL MONO x10 3 0.36 0.33 - 0.92 10*3/uL EOS x10 3 0.19 0.03 - 0.39 10*3/uL BASO x10 3 0.07 0.01 - 0.07 10*3/uL COMP. METABOLIC PANEL (95124) - Abnormal NA 138 135 - 145 mmol/L K 4.0 3.5 - 5.0 mmol/L CL 103 98 - 108 mmol/L CO2 TOTAL 30 23 - 31 mmol/L AGAP 5 2 - 16 BUN 7 7 - 23 mg/dL GLUCOSE 209 (*) 70 - 110 mg/dL CREATININE 0.52 0.50 - 1.04 mg/dL TOTAL BILI 0.5 0.1 - 1.1 mg/dL CALCIUM 9.0 8.6 - 10.6 mg/dL T PROTEIN 7.5 6.3 - 8.2 g/dL ALBUMIN 4.3 3.5 - 5.0 g/dL ALK PHOS 128 (*) 34 - 122 U/L ALTv 20 5 - 35 U/L AST(SGOT) 31 13 - 40 U/L eGFR 97.0 mL/min/1.73m2 N-TERMINAL PRO-BNP - Abnormal NT-proBNP 224 <=125 pg/mL TROPONIN I - Normal TROPONIN I 0.006 <=0.034 ng/mL EKG: If EKG completed, see Procedure Note. Orders and Treatments: Orders Placed This Encounter Procedures XR CHEST 1 VW CBC WITH DIFF COMP. METABOLIC PANEL (93568) TROPONIN I N-TERMINAL PRO-BNP Orders Placed This Encounter Medications aspirin tablet 325 mg First Provider Eval: ED Events Date/Time Event User Comments 12/31/23808 Medical Screening Begins FAMILIA LOZA NP -- 12/31/23808 First Provider Evaluation FAMILIA LOZA NP -- AdmissionCare Guideline: Chest Pain - OBS, Observation Based on the indications selected for the patient, the bed status of Observation was determined to be MET The following indications were selected as present at the time of evaluation of the patient: - Observation Care Admission Criteria - Observation care is indicated for 1 or more of the following: - Chest pain (or other anginal equivalent) not classified as low risk for acute coronary syndrome, as indicated by 1 or more of the following: - Patient classified as intermediate risk or high risk for acute coronary syndrome (eg, via use of a clinical decision tool or risk calculator (eg, HEART score greater than 3)) AdmissionCare documentation entered by: Familia Loza [facility] [employer], 28th edition, Copyright ? 2023 [facility] [employer] [facility] All Rights Reserved. [id number]:17:21-05:00 ED COURSE Labs, chest x-ray, ECG, Aspirin, Nitro paste ED Course as of 12/31/23 1018 SunDec 31, 2023 0958 IMPRESSION No acute process. [JA] 0942 GLUCOSE(!): 209 [JA] ED Course User Index [JA] Familia Loza NP Diagnosis/Impression as of 12/31/23 1018 Chest pain, unspecified type Procedures: EKG-12 Lead ROUTINE ONCE Date/Time: 12/31/2023 8:11 AM Performed by: Familia Loza NP Authorized by: Familia Loza NP ECG interpreted by ED Physician in the absence of a foreign exchange services manager: yes Previous ECG: Previous ECG: Compared to current Similarity: Changes noted Comparison ECG info: Sinus tachycardic then NSR now Interpretation: Interpretation: normal Rate: ECG rate: 95 ECG rate assessment: normal Rhythm: Rhythm: sinus rhythm Ectopy: Ectopy: none QRS: QRS axis: Normal QRS intervals: Normal QRS conduction: normal ST segments: ST segments: Normal T waves: T waves: normal Q waves: Abnormal Q-waves: not present MDM: Maria E Bah is a 73 year old female who present to the ED with left sided chest pain x 5 days. She rated her pain a 6 on a scale of 0 to 10 and described it as sharp. DDX: ACS CARDIAC ARRHYTHMIA ELECTROLYTE ABNORMALITY DEHYDRATION PNEUMONIA PE PULMONARY EDEMA PLEURISY COSTOCHONDRITIS Medical Decision Making Maria E Bah is a 73 year old female who present to the ED with left sided chest pain x 5 days. She rated her pain a 6 on a scale of 0 to 10 and described it as sharp. Problems Addressed: Chest pain, unspecified type: acute illness or injury Amount and/or Complexity of Data Reviewed Labs: ordered. Decision-making details documented in ED Course. Radiology: ordered. Decision-making details documented in ED Course. ECG/medicine tests: ordered. Decision-making details documented in ED Course. Risk OTC drugs. Prescription drug management. Parenteral controlled substances. Risk Details: Patient with chest pain heart score of 5. There is a possibility of worsening symptoms or negative outcomes for patient without further care and evaluation beyond ED. Patient is going to benefit from hospital stay, plan discussed with patient and she verbalized understanding and agrees. Flowsheet Documentation: Scoring Tools: No data recorded HEART Score: 5 Disposition/Condition: ED Disposition ED Disposition Admit - Observation Condition Stable Comment -- Discharge Medications: Patient's Medications START taking these medications No medications on file CONTINUE taking these medications which have NOT CHANGED ACETAMINOPHEN (TYLENOL ARTHRITIS PAIN) 650 MG CR TABLET Take 1 tablet by mouth 2 (two) times daily as needed for Pain. ALBUTEROL 90 MCG/ACTUATION INHALER Inhale 2 Puffs every 6 (six) hours as needed for Wheezing or Shortness of Breath. ALENDRONATE 70 MG TABLET Take 1 tablet by mouth weekly. ATORVASTATIN 20 MG TABLET Take 1 tablet by mouth every evening. BENZONATATE (TESSALON PERLES) 100 MG CAPSULE Take 1 capsule by mouth every 8 (eight) hours as needed for Cough. CLONAZEPAM 0.25 MG DISINTEGRATING TABLET clonazepam 0.[address] 1 TABLET EVERY DAY BY TRANSLINGUAL ROUTE NEEDED FOR 28 DAYS. CLOPIDOGREL 75 MG TABLET TAKE 1 TABLET BY MOUTH EVERY DAY FOR 90 DAYS HYDROCODONE-ACETAMINOPHEN 10-325 MG TABLET TAKE ONE TABLET BY MOUTH FOUR TIMES DAILY NEEDED METFORMIN 500 MG TABLET Take 1 tablet by mouth in the morning and 1 tablet in the evening. Take with meals. MUPIROCIN 2 % OINTMENT Apply to area(s) 3 (three) times daily. PANTOPRAZOLE 40 MG EC TABLET TAKE 1 TABLET BY MOUTH EVERY DAY START taking Modified Medications as Prescribed No medications on file STOP taking these medications No medications on file Follow-up: Electronically signed by: Familia Loza NP 12/31/23 5507 Associated attestation - Yoandy Burleson MD - 01/01/2024 9:15 AM CDT Addendum I was personally available for consultation in the Emergency Department during this encounter and patient evaluation by Tarah Loza NP.I did not personally evaluate the patient. See PACO note for details. ~Yoandy Burleson MD Clinical Transportation Maintenance Specialistcook tortilla- [facility] Department of Surgery Division of Emergency Medicine [facility] Clinical Wool Shearer Assistant Paralegal of [facility] 2023-12-31 08:05:00 AdmissionCare Guideline: Chest Pain - OBS, Observation Based on the indications selected for the patient, the bed status of Observation was determined to be MET The following indications were selected as present at the time of evaluation of the patient: - Observation Care Admission Criteria - Observation care is indicated for 1 or more of the following: - Chest pain (or other anginal equivalent) not classified as low risk for acute coronary syndrome, as indicated by 1 or more of the following: - Patient classified as intermediate risk or high risk for acute coronary syndrome (eg, via use of a clinical decision tool or risk calculator (eg, HEART score greater than 3)) AdmissionCare documentation entered by: Familia Loza [facility] Z[employer]OM TV, 28th edition, Copyright ? 2023 [facility] [employer] [facility] All Rights Reserved. [id number]:17:21-05:00 [facility] 2023-08-14 09:24:36 Dr. Lang is not a [facility] doctor. Renetta Oliveira [facility] 2023-08-14 09:09:06 LVM - pt needs to get refill from Rickey Raisa Solano [facility] 2023-08-13 11:22:27 Please route to Erector Operator Dr. Lang. Thank you. Kelly Rendon LVN [facility] 2023-08-12 10:23:46 Images from the original note were not included. Saray Dietrich [facility] 2023-07-18 11:18:59 Images from the original note were not included. Notes: 06/28/22 Last Refilled: [facility] [address] AT [place] [address] Recent Visits Date Type Provider Dept 05/15/23 Office Visit Gelacio Blas FNP [facility] 04/04/23 Office Visit Di Richards MD [facility] 12/19/22 Office Visit Di Richards MD [facility] 11/10/22 Office Visit Gelacio Blas FNP [facility] 07/24/22 Office Visit Di Richards MD [facility] 05/29/22 Office Visit Gelacio Blas FNP [facility] 05/11/22 Office Visit Gelacio Blas FNP [facility] 02/02/22 Office Visit Saundra Colmenares PA [facility] Showing recent visits within past 540 days with a meds authorizing provider and meeting all other requirements Future Appointments Date Type Provider Dept 11/16/23 Appointment Gelacio Blas FNP [facility] Showing future appointments within next 150 days with a meds authorizing provider and meeting all other requirements clopidogreL 75 mg tablet Sig: N/A Disp: 90 tablet Refills: 3 Start: 07/18/2023 Class: eRX For: Medication refill Last ordered: 1 year ago (06/28/2022) by MONTSERRAT Mcwilliams Anti-Platelets [id number]/18/2023 11:16 AM Protocol Details Valid encounter within last 12 months HGB in normal range and within 360 days HCT in normal range and within 360 days PLT in normal range and within 360 days RBC in normal range and within 360 days To be filled at: [facility] [address] AT [place] [address] Marta Bowling MA [facility] 2023-05-15 12:00:00 Images from the original note were not included. Venipuncture collection performed by clean technique on the right anticubitus. Total of 1 attempts were made. Slight pressure and a bandage/dressing were applied to the site(s). The patient experienced no complications. The following specimens were processed according to instructions and sent to [facility] laboratories per lab order on 05/15/2023: LT BLUE SST 1 RED LAV 2 PPT DK GREEN (LiHep) DK GREEN (SodH) COOLEY DK BLUE (K2) DK BLUE (S) ACD Blood Culture NIPT/NTD Pt unable to void. Sent pt home with specimen cup, pt will bring back sometime today. edicine [facility] 2023-03-20 14:55:39 Pt notified of positive uti results. RN Whitney Thompson MA [facility] 2022-11-16 07:57:21 Formatting of this n ote might be different from the original. Patient's daughter Court is calling stating patient tested positive for covid yesterday at [facility]. She is having soreness, feeling tired, cough and chills. She is requesting a prescription be sent in for her. [facility]/pharmacy #[id number] [facility] [address] [place] [address] Elidia Bah [facility] 2022-11-15 14:32:09 Formatting of this n ote might be different from the original. Annual Wellness Visit - Pre Visit Outreach 11/15/22 Patient name: Maria E Bah Patient First outreach regarding Annual Wellness Visit. Call outcome: no call HRA outcome: sent via mail Eligibility: Rich AWV initial ok after 10/24/2014 Kartik Weiner Health Maintenance Team Kartik Weiner [facility] 2022-11-14 14:30:00 Formatting of this n ote might be different from the original. Maria E Bah is a 72 year old female here for COVID Screening with a Nasopharyngeal Swab All droplet and contact precautions taken with appropriate PPE worn while interacting with patient. Patient educated on plan of care for visit, swabbing technique, risks and benefits of test and length of time to receive results. Verbal consent obtained to perform test. CDC Fact Sheet for Patients nCoV Diagnostic Panel dated 06/08/2019 and Factsheet What to Do if Sick with COVID 19 05/19/19 provided. Patient swabbed per appropriate nasopharyngeal technique, and patient tolerated well. Patient was discharged from the testing clinic in stable condition. Adriana Cheng RN 11/14/2022 2:19 PM [facility] 2022-11-13 09:30:00 Formatting of this n ote is different from the original. Images from the original note were not included. Venipuncture collection performed by clean technique on the right anticubitus. Total of 1 attempts were made. Slight pressure and a bandage/dressing were applied to the site(s). The patient experienced no complications. The following specimens were processed according to instructions and sent to [facility] laboratories per lab order on 11/13/2022 : LT BLUE SST 1 RED LAV 2 PPT DK GREEN (LiHep) DK GREEN (SodH) COOLEY DK BLUE (K2) DK BLUE (S) ACD Blood Culture NIPT/NTD T [facility] [employer] 2022-11-10 09:30:00 Formatting of this n ote might be different from the original. Patient not fasting-consumed 1 donut and 2 cups of coffee. She states she will come back Sunday morning. T Sammie David [facility]
[2024-08-01 18:17] LABS: Absolute Basophils 0.1 K/uL (0-0.5); Absolute Eosinophils 0.2 K/uL (0-0.5); Absolute Lymphocytes (CBC) 2.8 K/uL (0.7-4.9); Absolute Monocytes 0.6 K/uL (0.1-1.3); Absolute Neutrophil 5.3 K/uL (1.8-8.0); Basophils % 1.3 % (0-1.3); Eosinophils % 2.4 % (0-4.4); Hematocrit 37.8 % (36.0-45.0); Hemoglobin 12.9 g/dL (12.0-15.0); MCH 27.9 pg (27.0-35.0); MCHC 34.2 g/dL (32.0-36.0); MCV 81.5 fL (80-100); MPV 7.6 fL (7.6-11.3); Monocytes % 6.2 % (3.3-12.3); Neutrophils % 59.1 % (41.7-73.7); Nucleated Red Blood Cells % 0.2 % (0-0); Platelets 214 thou/uL (152-406); RBC Red Blood Cell Count 4.64 M/uL (3.86-4.86); Red Cell Distribution Width 12.9 % (12.1-15.2)
[2024-08-01 18:22] LABS: PT Prothrombin Time 10.8 SECONDS (10-13.0); Protime INR 0.94
[2024-08-01 18:32] LABS: ALT/SGPT 19 U/L (13-56); AST/SGOT 17 U/L (15-37); Albumin 3.4 g/dL (3.4-5.0); Albumin/Globulin Ratio 0.9 (1.1-1.8); Alkaline Phosphatase 98 U/L (45-117); Anion Gap 12.5 mEq/L (5.0-15.0); BUN Blood Urea Nitrogen 12 mg/dL (7-18); Bicarbonate 25 mEq/L (21-32); Bilirubin Total 0.2 mg/dL (0.2-1.0); Globulin 3.8 g/dL (2.3-3.5); Glomerular Filtration Rate 88 ml/min (=/>90); Glucose Level 199 mg/dL (74-106); Lipase 31 U/L (13-75); Magnesium 1.6 mg/dL (1.6-2.4); Potassium 3.5 mEq/L (3.5-5.1); Protein, Total 7.2 g/dL (6.4-8.2); Sodium Level 138 mEq/L (136-145)
[2024-08-01 18:33] LABS: Bilirubin Direct < 0.2 mg/dL (0-0.2)
[2024-08-01] MEDS ORDERED: ONDANSETRON 4 MG/2 ML VIAL ONE (19:18)
[2024-08-01] MEDS ORDERED: droPERidol 5 MG/2 ML VIAL ONE (20:44)
[2024-08-01] MEDS ORDERED: FAMOTIDINE 20 MG/2 ML VIAL IV ONE (20:50)
--- NOTE | 2024-08-01 21:44 | RAD REPORT ---
EXAMINATION: ONE VIEW CHEST XR CLINICAL INDICATION: CHEST PAIN TECHNIQUE: Frontal chest projection is submitted. Examination is limited by patient positioning and t echnique. COMPARISON: No prior exam. FINDINGS: The lungs are diffusely emphysematous but grossly clear. The heart is normal in size. No displaced fr actures identified. Wiring noted in the region of the left shoulder. IMPRESSION: COPD without an acute process suspected. Electronically signed by: Samuel Koch MD 08/01/2024 06:20 PM CDT Due to temporary technical issues with the PACS[employer] reporting system, reports are being kenneth d by the in-house radiologist without review as a courtesy to ensure prompt reporting the interpreting radiologist is fully responsible for the content of the report Transcribed Date/Time: 08/01/2024 9:44 PM
--- NOTE | 2024-08-01 22:12 | RAD REPORT ---
EXAMINATION: CT ABDOMEN AND PELVIS WITH CONTRAST CLINICAL INDICATION: ABD PAIN TECHNIQUE: CT abdomen and pelvis was performed, after the administration of IV contrast, as per [facility] protocol. Axial, sagittal and coronal reconstructions were obtained. One or more of the following dose reduction techniques were used: Automated exposure control, adjustment of the mA and k V according to patient size, and iterative reconstruction. Unless otherwise specified, incidental findings do not require dedicated imaging follow-up. COMPARISON: No prior exam. FINDINGS: LOWER CHEST: The visualized lung bases are clear. LIVER: Mild fatty liver is present. No focal lesion or biliary dilatation is seen. Grossly unrema rkable gallbladder. SPLEEN: Normal size. No focal lesion. PANCREAS: No mass, ductal dilation, or bharat-pancreatic fluid. ADRENALS: Normal; no mass. KIDNEYS: Normal size and contour. No hydronephrosis. GASTROINTESTINAL TRACT: No evidence of free air, significant intra-abdominal free fluid, bowel obstru ction or abscess. Moderate stool is retained throughout the colon. APPENDIX: Appendix not visualized, but no inflammatory changes in region of appendix. LYMPH NODES: No lymphadenopathy. MUSCULOSKELETAL: Proximal right femur hardware. ADDITIONAL FINDINGS: Aortoiliac atherosclerosis. IMPRESSION: No acute abnormalities seen in the abdomen or pelvis. Electronically signed by: Samuel Koch MD 08/01/2024 08:45 PM CDT Due to temporary technical issues with the PACS/YouBeQB reporting system, reports are being kenneth d by the in-house radiologist without review as a courtesy to ensure prompt reporting the interpreting radiologist is fully responsible for the content of the report. Transcribed Date/Time: 08/01/2024 10:11 PM
--- NOTE | 2024-08-01 22:28 | EDPHYS ---
Physician Documentation [facility] Name: Liberty Bah Age: 74 yrs Sex: Female : 1950 Arrival Date: 08/01/2024 Time: 17:34 Bed 2 Private MD: ED Physician Ramon Baez HPI: 08/01 17:39 This 74 yrs old Female presents to ER via Unassigned with complaints of ms3 abdominal pain, chest pain, shoulder pain. 17:39 74-year-old female with past medical history of OK, COPD, congestive heart failure, ms3 diabetes, GERD presents to the emergency department for abdominal pain that began at 10 AM. She states she has also had bilateral shoulder pain and substernal chest pain since that time as well. Patient Dors is nausea, headache as well. Clued EMS notes patient's blood pressure 122/58, 98% on room air.. Historical: - Allergies: 17:48 PENICILLINS; jl7 - PMHx: 17:48 Diabetes - NIDDM; Hypertension; Myocardial infarction; jl7 - Immunization history:: Adult Immunizations unknown. - Infectious Disease History:: Denies. - Social history:: Smoking status: Patient denies any tobacco usage or history of. ROS: 17:39 Constitutional: Negative for fever, and chills. ms3 17:39 Respiratory: Negative for shortness of breath, cough, wheezing, and pleuritic chest pain, 17:39 MS/Extremity: Negative for injury and deformity, Skin: Negative for injury, rash, and discoloration, 17:39 Cardiovascular: Positive for chest pain, 17:39 Abdomen/GI: Positive for abdominal pain, nausea, Negative for vomiting, diarrhea, Exam: 17:39 Constitutional: This is a well developed, well nourished patient who is awake, alert, ms3 and in no acute distress. Cardiovascular: Regular rate and rhythm with a normal S1 and S2. No gallops, murmurs, or rubs. Normal PMI, no JVD. No pulse deficits. Respiratory: Lungs have equal breath sounds bilaterally, clear to auscultation and percussion. No rales, rhonchi or wheezes noted. No increased work of breathing, no retractions or nasal flaring. Skin: Warm, dry with normal turgor. Normal color with no rashes, no lesions, and no evidence of cellulitis. 17:39 Abdomen/GI: Inspection: abdomen appears normal, Bowel sounds: normal, Palpation: moderate abdominal tenderness, in all quadrants, 18:02 ECG was reviewed by the Attending Physician. ms3 Vital Signs: 17:34 BP 127 / 76; Pulse 72; Resp 15; Temp 97; Pulse Ox 100% ; Weight 52.16 kg; jl7 19:23 BP 123 / 75; Pulse 80; Resp 18; Temp 97; Pulse Ox 100% ; Pain 0/10; bm8 20:15 BP 124 / 58; Pulse 63; Resp 17; Pulse Ox 93% ; jj7 21:01 BP 112 / 65; Pulse 76; Resp 18; Temp 97.1; Pulse Ox 93% ; Pain 0/10; bm8 22:02 BP 109 / 58; Pulse 69; Resp 17; Pulse Ox 95% ; jj7 23:00 BP 119 / 63; Pulse 65; Resp 17; Pulse Ox 95% ; jj7 05/10 00:15 BP 99 / 55; Pulse 64; Resp 17; Temp 98.1; Pulse Ox 94% ; Pain 0/10; jj7 19:23 Pain Scale: Adult bm8 21:01 Pain Scale: Adult bm8 05/10 00:15 Pain Scale: Adult jj7 Halsey Coma Score: 08/01 19:23 Eye Response: spontaneous(4). Motor Response: obeys commands(6). Verbal Response: bm8 oriented(5). Total: 15. 21:01 Eye Response: spontaneous(4). Motor Response: obeys commands(6). Verbal Response: bm8 oriented(5). Total: 15. MDM: 17:38 Medical Screening Exam initiated ms3 21:03 Transition of care: After a detail discussion of the patient's case, care is ms3 transferred to Ramon Baez MD. 22:29 Differential diagnosis: AAA, acute coronary syndrome, bowel obstruction, coronary april artery disease, Cholelithiasis, diverticulitis, gastritis, gastroesophageal reflux disease, Mesenteric ischemia or infarction, non-specific abd pain, pancreatitis, Pyelonephritis, urinary tract infection. Data reviewed: vital signs, nurses notes, lab test result(s), EKG, radiologic studies, CT scan, plain films. Consideration of Admission/Observation Escalation of care including admission/observation considered. I considered the following discharge prescriptions or medication management in the emergency department Medications were administered in the Emergency Department. See MAR. Independent interpretation of the following test(s) in the Emergency Department EKG: See my EKG interpretation above. Test considered but Not performed: Ultrasound no 2 D ECHO. Care significantly affected by the following chronic conditions: Diabetes, Hypertension, CAD,OK. 08/01 17:39 Order name: Basic Metabolic Panel; Complete Time: 18:35 ms3 08/01 17:39 Order name: CBC with Diff; Complete Time: 18:35 ms3 08/01 17:39 Order name: LFT's; Complete Time: 18:35 ms3 08/01 17:39 Order name: Magnesium; Complete Time: 18:35 ms3 08/01 17:39 Order name: PT-INR; Complete Time: 18:35 ms3 08/01 17:39 Order name: Troponin HS; Complete Time: 18:35 ms3 08/01 17:39 Order name: Lipase; Complete Time: 18:35 ms3 08/01 23:48 Order name: Troponin High Sensitivity EDMS 08/01 23:48 Order name: Troponin High Sensitivity EDMS 08/01 23:48 Order name: Troponin High Sensitivity EDMS 08/01 23:48 Order name: Troponin High Sensitivity EDMS 08/01 23:48 Order name: Troponin High Sensitivity EDMS 08/01 17:39 Order name: XRAY Chest (1 view); Complete Time: 22:13 ms3 08/01 17:39 Order name: CT Abd/Pelvis - IV Contrast Only ms3 08/01 17:39 Order name: EKG; Complete Time: 17:40 ms3 08/01 17:39 Order name: Cardiac monitoring; Complete Time: 18:01 ms3 08/01 17:39 Order name: EKG - Nurse/Tech; Complete Time: 18:01 ms3 08/01 17:39 Order name: IV Saline Lock; Complete Time: 18:01 ms3 08/01 17:39 Order name: Labs collected and sent; Complete Time: 18:01 ms3 08/01 17:39 Order name: O2 Per Protocol; Complete Time: 18:01 ms3 08/01 17:39 Order name: O2 Sat Monitoring; Complete Time: 18:01 ms3 EC:02 Rate is 75 beats/min. Rhythm is regular. QRS [place] is Normal. ND interval is normal. QRS ms3 interval is normal. QT interval is normal. Clinical impression: Normal ECG. Interpreted by me. Reviewed by me. Administered Medications: 19:22 Drug: Ondansetron IVP 4 mg IVP once; over 2 minutes Route: IVP; Site: right antecubital;bm8 20:48 Follow up: Response: Marked relief of symptoms jj7 20:47 Drug: Droperidol IVP 1.25 mg IVP once Route: IVP; Site: right forearm; jj7 21:02 Follow up: Response: No adverse reaction bm8 20:54 Drug: Famotidine IVP 20 mg IVP once; dilute with 10 mL 0.9% NaCl; give over 2 minutes jj7 Route: IVP; Site: right forearm; 21:02 Follow up: Response: No adverse reaction bm8 22:45 Drug: Aspirin PO Chewable Tablet 81 mg PO once Route: PO; bm8 08/02 00:48 Follow up: Response: No adverse reaction jj7 Disposition Summary: 08/01/24 22:27 Hospitalization Ordered Notes: Hospitalization Status: Observation april Provider: Liam Calhoun cha Location: Telemetry/MedSurg (observation) april Condition: Fair april Problem: new april Symptoms: have improved april Bed/Room Type: Standard [facility] Room Assignment: 430(08/01/24 23:55) lg3 Diagnosis - Abdominal pain, Generalized april - Nausea april - Chest pain, unspecified april Forms: - Medication Reconciliation Form april - SBAR form april - Leadership Thank You Letter april Signatures: Dispatcher [employer] Ramon Crooks MD MD cha Leal, Jahala RN RN jl7 Suzi Youngblood RN RN lg3 Nasir Honeycutt DO DO ms3 Cathy Mike RN RN jj7 Matt Harper RN RN bm8 Corrections: (The following items were deleted from the chart) 08/01 23:55 22:27 april lg3
--- NOTE | 2024-08-01 22:28 | ER ---
Nurse's Notes [facility] Name: Liberty Bah Age: 74 yrs Sex: Female : 1950 Arrival Date: 08/01/2024 Time: 17:34 Bed 2 Private MD: Diagnosis: Abdominal pain, Generalized;Nausea;Chest pain, unspecified Presentation: 08/01 17:34 Chief complaint: EMS states: Toned out for diffuse abdominal pain, Nausea, intermittent jl7 left sided CP since 1000. Coronavirus screen: At this time, the client does not indicate any symptoms associated with coronavirus-19. Ebola Screen: No symptoms or risks identified at this time. Initial Sepsis Screen: Does the patient meet any 2 criteria? No. Patient's initial sepsis screen is negative. Does the patient have a suspected source of infection? No. Patient's initial sepsis screen is negative. Risk Assessment: Do you want to hurt yourself or someone else? Patient reports no desire to harm self or others. Onset of symptoms was August 01, 2024 at 10:00. 17:34 Method Of Arrival: EMS: [facility] jl7 17:34 Acuity: BARBRA 2 jl7 Triage Assessment: 17:48 General: Appears in no apparent distress. uncomfortable, Behavior is calm, cooperative, jl7 appropriate for age. Pain: Complains of pain in abdomen. GI: Reports nausea. Historical: - Allergies: 17:48 PENICILLINS; jl7 - PMHx: 17:48 Diabetes - NIDDM; Hypertension; Myocardial infarction; jl7 - Immunization history:: Adult Immunizations unknown. - Infectious Disease History:: Denies. - Social history:: Smoking status: Patient denies any tobacco usage or history of. Screenin:23 [facility] ED Fall Risk Assessment (Adult) History of falling in the last 3 months, bm8 including since admission No falls in past 3 months (0 pts) Confusion or Disorientation No (0 pts) Intoxicated or Sedated No (0 pts) Impaired Gait No (0 pts) Mobility Assist Device Used No (0 pt) Altered Elimination No (0 pt) Score/Fall Risk Level 0 - 2 = Low Risk Oriented to surroundings, Maintained a safe environment, Educated pt \T\ family on fall prevention, incl call for assistance when getting out of bed, Assessed \T\ reinforced patient's understanding of fall precautions, Hourly rounding (assess needs \T\ fall precautionary measures) done, Used ambulatory aids as needed (educated on \T\ assisted with), Used gait belt as appropriate. Abuse screen: Denies threats or abuse. Nutritional screening: No deficits noted. Tuberculosis screening: No symptoms or risk factors identified. Assessment: 19:23 Reassessment: Patient appears in no apparent distress at this time. Patient and/or bm8 family updated on plan of care and expected duration. Pain level reassessed. Patient is alert, oriented x 3, equal unlabored respirations, skin warm/dry/pink. General: Appears in no apparent distress. comfortable, Behavior is calm, cooperative, appropriate for age. Pain: Denies pain. Neuro: No deficits noted. Level of Consciousness is awake, alert, obeys commands, Oriented to person, place, time, situation. Cardiovascular: Denies chest pain, Heart tones S1 S2 present Capillary refill < 3 seconds in bilateral fingers Patient's skin is warm and dry. Respiratory: Airway is patent Trachea midline Respiratory effort is even, unlabored, Respiratory pattern is regular, symmetrical, Breath sounds are clear bilaterally. GI: Abdomen is flat, Bowel sounds present X 4 quads. Abd is soft and non tender Reports nausea. 21:01 Reassessment: Patient appears in no apparent distress at this time. Patient and/or bm8 family updated on plan of care and expected duration. Pain level reassessed. Patient is alert, oriented x 3, equal unlabored respirations, skin warm/dry/pink. Patient states symptoms have improved. Vital Signs: 17:34 BP 127 / 76; Pulse 72; Resp 15; Temp 97; Pulse Ox 100% ; Weight 52.16 kg; jl7 19:23 BP 123 / 75; Pulse 80; Resp 18; Temp 97; Pulse Ox 100% ; Pain 0/10; bm8 20:15 BP 124 / 58; Pulse 63; Resp 17; Pulse Ox 93% ; jj7 21:01 BP 112 / 65; Pulse 76; Resp 18; Temp 97.1; Pulse Ox 93% ; Pain 0/10; bm8 22:02 BP 109 / 58; Pulse 69; Resp 17; Pulse Ox 95% ; jj7 23:00 BP 119 / 63; Pulse 65; Resp 17; Pulse Ox 95% ; jj7 05/10 00:15 BP 99 / 55; Pulse 64; Resp 17; Temp 98.1; Pulse Ox 94% ; Pain 0/10; jj7 19:23 Pain Scale: Adult bm8 21:01 Pain Scale: Adult bm8 08/02 00:15 Pain Scale: Adult jj7 Ashli Coma Score: 08/01 19:23 Eye Response: spontaneous(4). Motor Response: obeys commands(6). Verbal Response: bm8 oriented(5). Total: 15. 21:01 Eye Response: spontaneous(4). Motor Response: obeys commands(6). Verbal Response: bm8 oriented(5). Total: 15. ED Course: 17:38 Patient arrived in ED. ms3 17:38 Nasir Honeycutt DO is Attending Physician. ms3 17:48 Triage completed. jl7 17:48 Arm band placed on right wrist. jl7 17:49 Franklin Rich, RN is Primary Nurse. bp 18:01 Maintain EMS IV. Dressing intact. Good blood return noted. Site clean \T\ dry. Gauge \T\ bp site: 20 RAC. 18:09 XRAY Chest (1 view) In Process Unspecified. EDMS 19:23 Patient has correct armband on for positive identification. Placed in gown. Bed in low bm8 position. Call light in reach. Side rails up X2. Adult w/ patient. Client placed on continuous cardiac and pulse oximetry monitoring. NIBP monitoring applied. monitor worker on. Pulse ox on. NIBP on. Door closed. Noise minimized. Warm blanket given. Pillow given. Verbal reassurance given. Head of bed elevated. 19:23 No provider procedures requiring assistance completed. Patient maintains SpO2 bm8 saturation greater than 95% on room air. 19:55 CT Abd/Pelvis - IV Contrast Only In Process Unspecified. EDMS 21:03 Attending Physician role handed off by Nasir Honeycutt DO ms3 21:03 Ramon Baez MD is Attending Physician. ms3 22:25 Liam Calhoun MD is Hospitalizing Provider. [facility] 08/02 00:17 Provided Education on: USE OF CALL SELLERS. jj7 00:17 Patient admitted, IV remains in place. jj7 01:48 initiated transfer with [facility] \T\2009. Pt was accepted \T\2019 by Margaret Culp Admin [facility] \T\ 2019. Pt will go to the ER. Number for report [phone]. [facility] to transfer. Administered Medications: 08/01 19:22 Drug: Ondansetron IVP 4 mg IVP once; over 2 minutes Route: IVP; Site: right antecubital;bm8 20:48 Follow up: Response: Marked relief of symptoms jj7 20:47 Drug: Droperidol IVP 1.25 mg IVP once Route: IVP; Site: right forearm; jj7 21:02 Follow up: Response: No adverse reaction bm8 20:54 Drug: Famotidine IVP 20 mg IVP once; dilute with 10 mL 0.9% NaCl; give over 2 minutes jj7 Route: IVP; Site: right forearm; 21:02 Follow up: Response: No adverse reaction bm8 22:45 Drug: Aspirin PO Chewable Tablet 81 mg PO once Route: PO; bm8 08/02 00:48 Follow up: Response: No adverse reaction jj7 Medication: 08/01 19:23 VIS not applicable for this client. bm8 Outcome: 22:27 Decision to Hospitalize by Provider. april 08/02 00:10 Admitted to Med/surg Report called to SBAR TUBED TO 4TH FLOOR jj7 00:15 Condition: improved jj7 00:40 Admitted to Med/surg accompanied by tech, via wheelchair, room 430, jj7 00:54 Patient left the ED. jj7 Signatures: Dispatcher [employer] EDMS Ramon Baez MD MD cha Leal, Jahala, RN RN jl7 Franklin Rich, RN RN Nasir Daniels DO DO ms3 Cathy Mike RN RN jj7 Sharita Beltran [facility] Matt Harper RN RN bm8
[2024-08-01] MEDS ORDERED: NITROGLYCERIN 0.4 MG/TAB SL PRN (23:43)
--- NOTE | 2024-08-01 23:47 | P.HP ---
Certification for Inpatient Patient admitted to: Observation With expected LOS: <2 Midnights Patient will require the following post-hospital care: None Practitioner: I am a practitioner with admitting privileges, knowledge of patient current condition, hospital course, and medical plan of care. Services: Services provided to patient in accordance with Admission requirements found in Title 42 Section 412.3 of the Code of Federal Regulations Patient History Date of Service: 08/02/24 Reason for admission: Abdominal pain, nausea, chest pain. History of Present Illness: Patient is a pleasant 74-year-old female with past medical history of stroke, CAD with stent placement x 3, gastroesophageal reflux disease, who presents the ER today complaining of diffuse abdominal pain, nausea with no vomiting, and chest pain. Patient describes her chest pain as tight mostly located in the left side of her chest, with no associated shortness of breath. She states her abdominal pain is diffused but more profound in the epigastric region. Patient states she was really concerned about her chest pain, states is similar to when she last had a heart attack and at the time she had a stent placed x 3 that was 15 years ago. Patient initial troponin 12.0, EKG with no ST abnormalities sinus rhythm. Allergies Penicillins Allergy (Verified 09/25/16 07:58) Rash Home Medications: Clopidogrel Bisulfate [Plavix*] 75 mg PO DAILY 08/01/13 Atorvastatin Calcium [Lipitor*] 20 mg PO DAILY 09/25/16 Metformin ER [Glucophage ER*] 500 mg PO BID 09/25/16 Omeprazole [Prilosec] 40 mg PO DAILY 09/25/16 Meloxicam [Mobic] 7.5 mg PO DAILY 06/04/17 - Past Medical/Surgical History Has patient received pneumonia vaccine in the past: No Diabetic: Yes -: shingles x2 in last 3 years -: CT -: stroke -: htn -: cardiac stentx3 -: cad -: gerd -: hyst -: cardiac stent x3 - Family History Family History: Reviewed- Non-Contributory - Social History Smoking Status: Never smoker Alcohol use: No CD- Drugs: No Caffeine use: Yes Place of Residence: Home Review of Systems 10-point ROS is otherwise unremarkable Cardiovascular: Chest Pain Gastrointestinal: Abdominal Pain Physical Examination - Physical Exam General: Alert, In no apparent distress, Oriented x3, Cooperative HEENT: Atraumatic, Normocephalic, PERRLA, Mucous membr. moist/pink, Sclerae nonicteric Neck: 2+ carotid pulse no bruit, Without JVD or thyroid abnormality Respiratory: Clear to auscultation bilaterally, Normal air movement Cardiovascular: No edema, Normal pulses, Regular rate/rhythm, Normal S1 S2, No gallops, No rubs, No murmurs Capillary refill: <2 Seconds Gastrointestinal: Normal bowel sounds, No rebound, No guarding, Tenderness Musculoskeletal: No clubbing, No swelling, No contractures, No erythema, No tenderness, No warmth Integumentary: No rashes, No breakdown, No significant lesion, No tenderness/swelling, No erythema, No warmth, No cyanosis Neurological: Normal gait, Normal speech, Normal strength at 5/5 x4 extr, Normal tone, Sensation intact, Cranial nerves 3-12 intact, Normal reflexes 2+, Normal affect Lymphatics: No axilla or inguinal lymphadenopathy - Studies Laboratory Data (last 24 hrs) 08/01/24 08/01/24 08/01/24 18:01 18:01 18:01 WBC 8.90 Hgb 12.9 Hct 37.8 Plt Count 214 PT 10.8 INR 0.94 Sodium 138 Potassium 3.5 BUN 12 Creatinine 0.71 Glucose 199 H Magnesium 1.6 Total Bilirubin 0.2 AST 17 ALT 19 Alkaline Phosphatase 98 Lipase 31 Female Exam - Female Pelvic Cervix: No discharge Assessment and Plan - Plan Patient is a pleasant 74-year-old female who reports to ER complaining of abdominal pain, nausea with no vomiting, chest pain localized mostly on the left side with no associated shortness of breath. Patient initial troponin 12.0, EKG with ST abnormalities. On admission assessment, patient states her chest pain is resolved at this time, but still has abdominal pain on palpation, patient CT of the abdomen negative. (1)Chest pain. -Order serial troponin. Patient first troponin of 12.0, results for 2nd and 3rd troponin still pending at this time. EKG with no ST abnormalities. -Initiated chest pain protocol. -Telemetry. -Sorting Livestock Worker consult (2)Abdominal pain with nausea but no vomiting/GERD. Patient CT of the abdomen is negative. -Protonix 40 mg p.o. daily. -Zofran 4 mg IV as needed every 6 hours. (3)Explained the entire treatment plan to the patient, solicit questions answered and voiced understanding. Discharge Plan: Home Plan to discharge in: 48 Hours - Advance Directives Does patient have a Living Will: No Does patient have a Durable POA for Healthcare: No - Code Status/Comfort Care Code Status Assessed: Yes Code Status: Full Code Critical Care: No Time Spent Managing Pts Care (In Minutes): 55
[2024-08-02 01:26] VITALS: BMI 22.4
[2024-08-02] MEDS: PANTOPRAZOLE 40MG TABLET PO SCH (06:42)
[2024-08-02] MEDS: ENOXAPARIN 40 MG/0.4 ML SQ SCH (08:37)
[2024-08-02] MEDS: ASPIRIN 325 MG TAB PO SCH (08:38)
[2024-08-02] MEDS ORDERED: PNEUMOCOCCAL VACCINE 0.5 ML IMVAC ONE (09:00)
--- NOTE | 2024-08-02 13:33 | P.PN ---
Date of Service: 08/02/24 Subjective: Follows with Dr. Funes. Had a monitor placed a few days ago. Denies any fevers or chills. Denies cough Review of Systems 10-point ROS is otherwise unremarkable Cardiovascular: Chest Pain Gastrointestinal: Abdominal Pain Physical Examination - Physical Exam General: Alert, In no apparent distress, Oriented x3, Cooperative HEENT: Atraumatic, Normocephalic, PERRLA, Mucous membr. moist/pink, Sclerae nonicteric Neck: 2+ carotid pulse no bruit, Without JVD or thyroid abnormality Respiratory: Clear to auscultation bilaterally, Normal air movement Cardiovascular: No edema, Normal pulses, Regular rate/rhythm, Normal S1 S2, No gallops, No rubs, No murmurs Capillary refill: <2 Seconds Gastrointestinal: Normal bowel sounds, No rebound, No guarding, Tenderness Musculoskeletal: No clubbing, No swelling, No contractures, No erythema, No tenderness, No warmth Integumentary: No rashes, No breakdown, No significant lesion, No tenderness/swelling, No erythema, No warmth, No cyanosis Neurological: Normal gait, Normal speech, Normal strength at 5/5 x4 extr, Normal tone, Sensation intact, Cranial nerves 3-12 intact, Normal reflexes 2+, Normal affect Lymphatics: No axilla or inguinal lymphadenopathy - Studies Laboratory Data (last 24 hrs) 08/01/24 08/01/24 08/01/24 18:01 18:01 18:01 WBC 8.90 Hgb 12.9 Hct 37.8 Plt Count 214 PT 10.8 INR 0.94 Sodium 138 Potassium 3.5 BUN 12 Creatinine 0.71 Glucose 199 H Magnesium 1.6 Total Bilirubin 0.2 AST 17 ALT 19 Alkaline Phosphatase 98 Lipase 31 Female Exam - Female Pelvic Cervix: No discharge Assessment and Plan - Plan Patient is a pleasant 74-year-old female who reports to ER complaining of abdominal pain, nausea with no vomiting, chest pain localized mostly on the left side with no associated shortness of breath. Patient initial troponin 12.0, EKG with ST abnormalities. On admission assessment, patient states her chest pain is resolved at this time, but still has abdominal pain on palpation, patient CT of the abdomen negative. (1)Chest pain. -Order serial troponin. Patient first troponin of 12.0, results for 2nd and 3rd troponin still pending at this time. EKG with no ST abnormalities. -Initiated chest pain protocol. -Telemetry. -Rectification Printer consult (2)Abdominal pain with nausea but no vomiting/GERD. Patient CT of the abdomen is negative. -Protonix 40 mg p.o. daily. -Zofran 4 mg IV as needed every 6 hours. (3)Explained the entire treatment plan to the patient, solicit questions answered and voiced understanding. Discharge Plan: Home Plan to discharge in: 48 Hours - Advance Directives Does patient have a Living Will: No Does patient have a Durable POA for Healthcare: No - Code Status/Comfort Care Code Status Assessed: Yes Code Status: Full Code Critical Care: No Time Spent Managing Pts Care (In Minutes): 55
[2024-08-02] MEDS ORDERED: D10W 125 ML IV PRN (14:54)
[2024-08-02] MEDS ORDERED: GLUCAGON 1 MG/VIAL IM PRN (14:54)
[2024-08-02] MEDS: INSULIN REGULAR (HUMAN) 100 UNIT/ML SQ SCH (17:00)
--- NOTE | 2024-08-03 17:24 | P.PN ---
Date of Service: 08/03/24 Subjective feeling well this morning, reports symptoms resolved Upon admission she reported the same symptoms as in [address] Amaya placed [address] Valdez recommends a heart cath in the morning. ROS 10 point ROS as noted above, otherwise negative Physical Exam General: Alert and Oriented x3, Cooperative HEENT: Atraumatic, Normocephalic, PERRLA Neck: 2+ carotid pulse no bruit Respiratory: Clear BBS, Normal air movement, on RA Cardiovascular: Normal pulses, RRR, Normal S1 S2 Capillary refill: <2 Seconds Gastrointestinal: Normal bowel sounds, No rebound, No guarding, Tenderness Musculoskeletal: No clubbing, No swelling, No contractures, No erythema, No tenderness, No warmth Integumentary: No rashes, No breakdown Neurological: Normal gait, Normal speech, Vitals Reviewed Problem list Chest pain rule out History of CAD with 3 stents (2010) Abdominal pain with nausea but no vomiting/GERD. Assessment and Plan Chest pain rule out History of CAD with 3 stents (2010) -Serial troponins trended flat -EKG with no ST abnormalities. -chest pain protocol. - Continuous telemetry. -Press Set Up followingheart cath in a.m. - N.p.o. Abdominal pain with nausea but no vomiting/GERD. - Patient CT of the abdomen is negative. - Continue Protonix 40 mg p.o. daily. - Continue Zofran 4 mg IV as needed every 6 hours. DVT PPX Lovenox Discharge Plan: Home Plan to discharge in: 48 Hours
--- NOTE | 2024-08-03 17:31 | CON ---
Date of Consultation: 08/03/2024 Reason For Consultation: Chest pain. History Of Present Illness: This is a 74-year-old female with history of coronary artery disease, mu ltiple stents in the past, presented with chest pain, pressure like, radiates to the shoulder and nec k along with nausea. No vomiting. She gets diaphoretic and nauseated and the pain goes away. Last stent was placed about 15 years ago. Denies having any active chest pain at this moment, but activit y is bringing on symptoms. Past Medical History: Coronary artery disease, heart attack, stroke, hypertension, dyslipidemia. Medications: Refer to reconciliation sheet for detailed list. Allergies: PENICILLIN. Family History: No premature coronary artery disease or cancer. Social History: She does not smoke or drink. Does not use any drugs. Review of Systems: All systems reviewed and they were negative except as mentioned in the HPI. Physical Examination: Vital Signs: Reviewed. Head and Neck: Pupils are equal, reactive to light. Intact eye movements. No JVD. No cervical lym phadenopathy. Neck is supple. Thyroid is not enlarged. Lungs: Clear to auscultation bilaterally. No rhonchi, wheezing, or crackles. No accessory muscle u se. Heart: Regular rate and rhythm. No extra sounds. Abdomen: Soft, nontender. Bowel sounds positive. No organomegaly. No masses or hernia. No rigidi ty or rebound. Extremities: No edema, clubbing, or cyanosis. Intact pulses. Skin: No rash. No nodules. Neurologic: Alert, awake, and oriented x3. No acute focal deficits appreciated. Lymph Nodes: No cervical or axillary lymphadenopathy. Investigations: Cardiac enzymes x3 are negative, and BUN is 12, creatinine 0.71, and hemoglobin is 1 2.9. Assessment And Recommendations: 1. Unstable angina, symptoms are very typical. Exertional chest pain with nausea and diaphoresis. K nown coronary artery disease. Troponins are negative. I recommend coronary angiogram due to unstabl e presentation for symptoms. Continue aspirin, high-dose statin. Keep NPO past midnight for coronar y angiogram tomorrow morning. 2. Dyslipidemia. Recommend Lipitor 40 mg q.h.s. 3. Hypertension. Blood pressure is controlled. SR/MODL Voice ID: [id number] Report ID: [id number]
[2024-08-03] MEDS: ENOXAPARIN 60 MG/0.6 ML SQ SCH (19:05)
[2024-08-04 04:49] LABS: Hematocrit 37.9 % (36.0-45.0); Hemoglobin 13.1 g/dL (12.0-15.0); MCH 28.2 pg (27.0-35.0); MCHC 34.6 g/dL (32.0-36.0); MCV 81.5 fL (80-100); MPV 8.1 fL (7.6-11.3); Platelets 192 thou/uL (152-406); RBC Red Blood Cell Count 4.65 M/uL (3.86-4.86)
[2024-08-04 05:03] LABS: Anion Gap 8.6 mEq/L (5.0-15.0); Potassium 3.6 mEq/L (3.5-5.1)
[2024-08-04] MEDS ORDERED: NA CHLORIDE 0.9% 500 ML ONE (07:58)
[2024-08-04] MEDS ORDERED: MIDAZOLAM HCL 2 MG/2 ML INJ ONE (08:46)
[2024-08-04] MEDS ORDERED: ATROPINE SULF 1 MG/10 ML SYR IV ONE (08:46)
[2024-08-04] MEDS ORDERED: HEPARIN 10,000 UNIT/10 ML VIAL IV ONE (08:46)
[2024-08-04] MEDS ORDERED: HEPA 1000U/500MLS 2,000 UNIT/1,000 ML BAG IV ONE (08:46)
[2024-08-04] MEDS ORDERED: LIDOCAINE 1% 20 ML MDV ONE (08:46)
[2024-08-04] MEDS ORDERED: HEPARIN 5000 UNIT/ML 1 ML VIAL ONE (08:47)
[2024-08-04] MEDS ORDERED: CLOPIDOGREL 75 MG TABLET ONE (08:47)
[2024-08-04] MEDS ORDERED: FENTANYL CITR 100 MCG/2 ML ONE (08:47)
[2024-08-04] MEDS ORDERED: NALOXONE 0.4 MG/ML VIAL ONE (08:47)
[2024-08-04] MEDS ORDERED: TICAGRELOR 90 MG TABLET PO ONE (08:47)
[2024-08-04] MEDS ORDERED: ASPIRIN 325 MG TAB ONE (08:47)
[2024-08-04] MEDS ORDERED: FLUMAZENIL 0.1 MG/ML (5 mL VIAL) IV ONE (08:48)
[2024-08-04] MEDS ORDERED: REGADENOSON 0.4 MG/5 ML SYR IV ONE (09:34)
--- NOTE | 2024-08-04 11:34 | P.PN ---
Subjective Date of Service: 08/04/24 Chief Complaint: Abdominal pain, nausea, chest pain. Subjective: No new changes, No C/O voiced, Tolerating diet, Ambulating, Improving Review of Systems 10-point ROS is otherwise unremarkable Physical Examination - Vital Signs Temperature: 97.5 F Blood Pressure: 108/60 Pulse: 63 Respirations: 15 Pulse Ox (%): 91 - Physical Exam General: Alert, In no apparent distress HEENT: Atraumatic, PERRLA, EOMI Neck: Supple, JVD not distended Respiratory: Clear to auscultation bilaterally, Normal air movement Cardiovascular: Regular rate/rhythm, Normal S1 S2 Gastrointestinal: Normal bowel sounds, No tenderness Musculoskeletal: No tenderness Integumentary: No rashes Neurological: Normal speech, Normal tone, Normal affect Lymphatics: No axilla or inguinal lymphadenopathy - Studies Medications List Reviewed: Yes Assessment And Plan - Current Problems (Diagnosis) (1) Chest pain Current Visit: No Status: Acute Plan: Patient with PMH of CAD and stents, s/p coronary angiogram today that shown moderate LAD stent ISR, FFR negative continue Plavix 75 mg daily continue ASA 81 mg daily Continue lipitor 20 mg daily outpatient follow up with cardiology for echo and medications adjustment No further in patient cardiac work up needed.
--- NOTE | 2024-08-04 12:05 | EKG ---
Test Date: 2024-08-01 Test Time: 17:37:22 Investigations Chief: LI MEASUREMENT RESULTS: Intervals: Rate: 75 VT: 144 QRSD: 70 QT: 372 QTc: 415 [place]: P: 77 VT: 144 QRS: -1 T: 73 INTERPRETIVE STATEMENTS: Normal sinus rhythm Normal ECG Compared to ECG 04/30/2024 08:14:37 Atrial premature complex(es) no longer present Electronically Signed On 08-04-24 12:03:03 CDT by Stephane Farmer
[2024-08-04 13:41] VITALS: BP 128/63; TEMP 98.2
[2024-08-04 16:43] VITALS: O2SAT 93
--- NOTE | 2024-08-04 21:26 | OP ---
Date of Procedure: 08/04/2024 Surgeon: Stephane Farmer Procedures Performed: 1. Selective coronary angiogram. 2. FFR of the LAD. Indication For Procedure: Unstable angina. Complications: None. Estimated Blood Loss: Less than 50 cc. Access: Right radial, closed by TR band. Sedation Time: 20 minutes with 1 of Versed and 25 of fentanyl. Description Of Procedure: After risks, and benefits, and alternatives were explained to the patient, patient agreed to proceed with procedure and signed informed consent. The patient was brought back to the slab polisher, prepped and draped in sterile fashion. Time-out was performed. Sedation was admini stered. Next, right radial access was obtained using ultrasound-guided micropuncture technique. Tig er 4.0 catheter was advanced to the aortic root. Selective angiogram was done using the same cathete r. After that, this catheter was exchanged with an XB LAD 3.0 mm guide. Heparin was administered. ACT was therapeutic. FFR wire was passed across the mid LAD lesion. Baseline FFR was 0.94. Peak FF R was 0.86. Pullback did not show any drifts. Final angiogram shows EVY-3 flow, wire was removed a nd catheter was removed over a J-wire. Sheath was removed. TR band was applied and hemostasis was a chieved and patient was moved back to recovery in stable condition. Findings: 1. Left main showed normal. 2. LAD; proximal mild luminal irregularities. Mid stent patent with diffuse 20% to 30% ISR, distal e dge got 50% ISR, FFR negative. Mid to distal mild luminal irregularities. 3. Left circ; mild luminal irregularities. 4. RCA; proximal mild LI, mid stent patent with diffuse stent 20% ISR, distal edge got 30% to 40% dis ease, then mild luminal irregularities. Assessment And Plan: 1. Moderate mid LAD stent distal edge ISR, FFR negative. 2. Mild mid RCA distal edge ISR. Plan is to continue aspirin and Plavix and continue aggressive medical treatment for CAD. GOLDMAN/MODL Voice ID: [id number] Report ID: [id number]
== END 2024-08-04 16:31 | disposition home or self-care (01) | DRG 287 ==
LOC: ER 17:34 → ERHOLD 23:40 → 4TH 08-02 00:33 → OBSVTOIN 08-03 13:29
PROVIDERS: ADMIT Family Medicine; ATTEND Hospitalist
PROC: B2111ZZ Fluoroscopy of Multiple Coronary Arteries using Low Osmolar Contrast (ICD-10-PCS; principal; 2024-08-04)
PROC: 4A023N7 Measurement of Cardiac Sampling and Pressure, Left Heart, Percutaneous Approach (ICD-10-PCS; 2024-08-04)
DX: T82.855A Stenosis of coronary artery stent, initial encounter (principal); I25.110 Atherosclerotic heart disease of native coronary artery with unstable angina pectoris; E11.9 Type 2 diabetes mellitus without complications; K21.9 Gastro-esophageal reflux disease without esophagitis; J44.9 Chronic obstructive pulmonary disease, unspecified; E78.5 Hyperlipidemia, unspecified; I25.2 Old myocardial infarction; Z88.0 Allergy status to penicillin; Z95.5 Presence of coronary angioplasty implant and graft; Z79.02 Long term (current) use of antithrombotics/antiplatelets; Z86.73 Personal history of transient ischemic attack (TIA), and cerebral infarction without residual deficits; Z79.84 Long term (current) use of oral hypoglycemic drugs; Z79.899 Other long term (current) drug therapy
CPT/HCPCS: 36415; 71045; 74177; 80048; 80076; 82947; 83690; 83735; 84484; 85025; 85027; 85610; 93005; 93454; 93572; 99152; 99153; 99285; C1769; C1893; G0378; J0461; J1644; J1650; J1790; J1815; J2003; J2250; J2310; J2405; J2785; J3010; J7040; Q9966; Q9967